=== PATIENT | female | born 1935 | race Caucasian/White ===

== ENCOUNTER 2020-06-24 06:58 | Emergency (ER) | payer MEDICARE, OTHER ==
[2020-06-24 07:24] VITALS: BP 130/74; PULSE 88
[2020-06-24] MEDS ORDERED: HYDROmorphone 0.5 MG/0.5 ML Syringe IVPUSH ONE ×2 (07:30→08:50)
[2020-06-24] MEDS ORDERED: Sodium Chloride 0.9% 1,000 ML IV SCH (07:30)
[2020-06-24] MEDS ORDERED: Metoclopramide 10 MG/2 ML SDV IVPUSH ONE (07:31)
--- NOTE | 2020-06-24 07:39 | EDM.PDOC ---
ED HPI GENERAL MEDICAL PROBLEM - General Chief Complaint: Back Pain or Injury Stated Complaint: BACK PAIN Time Seen by Provider: 06/24/20 07:25 Source of Information: Reports: Patient, Family (spouse) History Limitations: Reports: No Limitations - History of Present Illness INITIAL COMMENTS - FREE TEXT/NARRATIVE: 85-year-old female presents to the ED in accompaniment of her . Chief complaint is diffuse low back pain. This occurred suddenly as she was bending over yesterday to put the ironing board away and when she stood up she developed excruciating pain in her lower back which is persisted. Pain is not too bad at rest levels and there is a 3. With standing or walking incident 8 or 9 out of 10. She does have a history of compression fractures in her thoracic spine from coughing so hard when she had pneumonia. Denies any pain with radiating down her buttocks or legs. She feels she is emptying her bladder adequately. She took Tylenol for pain last night with very little relief. Onset: Sudden Onset Date: 06/23/20 Duration: Hour(s):, Constant, Getting Worse Location: Reports: Back (Mid lumbar spine) Quality: Reports: Ache, Throbbing Severity: Moderate (7-8 out of 10 at standing) Improves with: Reports: Rest (3 out of 10 at rest.) Worsens with: Reports: Other (Trying to walk or stand.), Movement Associated Symptoms: Reports: Malaise. 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: Acetaminophen Lower Back Pain Score (Numeric/FACES): 4 - Related Data Allergies Allergy/AdvReac Type Severity Reaction Status Date / Time oxycodone AdvReac Shaking Verified 06/24/20 07:24 Home Meds: Home Meds Cholecalciferol (Vitamin D3) [Vitamin D3] 1,000 unit PO DAILY 09/06/14 [History] Multivit-Min/FA/Lycopen/Lutein [Centrum Silver Tablet] 1 each PO DAILY 09/06/14 [History] Aspirin [Halfprin] 81 mg PO DAILY tab.ec 09/12/14 [Rx] Levothyroxine [Synthroid] 88 mcg PO ACBRK tablet 09/12/14 [Rx] Rosuvastatin [Crestor] 2.5 mg PO BEDTIME tablet 09/12/14 [Rx] amLODIPine [Norvasc] 10 mg PO BID 11/03/15 [History] B2/Vits A,C,E/Lut/Zeaxanth/Min [Icaps] 1 each PO BID 06/24/20 [History] Diclofenac Sodium [Voltaren] 50 mg PO TID #24 tab.ec 06/24/20 [Rx] Escitalopram Oxalate [Lexapro] 10 mg PO DAILY 06/24/20 [History] HYDROmorphone [Dilaudid] 4 mg PO Q4H #30 tablet 06/24/20 [Rx] Past Medical History HEENT History: Reports: Cataract Other HEENT History: Wears glasses Cardiovascular History: Reports: High Cholesterol, Hypertension Respiratory History: Reports: PE, Pneumonia, Recurrent Other Respiratory History: pleural effusion, pneumothorax Gastrointestinal History: Reports: Chronic Constipation Genitourinary History: Reports: UTI, Recurrent Other Genitourinary History: urinary frequency 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: Musculoskeletal History: Reports: Arthritis, Osteoarthritis, Other (See Below) Other Musculoskeletal History: osteopenia Psychiatric History: Reports: Depression Endocrine/Metabolic History: Reports: Hypothyroidism Hematologic History: Reports: Anemia Other Oncologic History: 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 thigh Dermatologic History: Reports: Melanoma - Infectious Disease History Infectious Disease History: Reports: Chicken Pox, Measles, Mumps - Past Surgical History Female Surgical History: Reports: Hysterectomy Musculoskeletal Surgical History: Reports: Knee Replacement Other Musculoskeletal Surgeries/Procedures:: bilateral knee replacements 2006 and 08/2014, balloon kyphoplasty Social & Family History - Family History Family Medical History: No Pertinent Family History Musculoskeletal: Reports: RA Oncologic: Reports: Other (See Below) Other Oncologic Family History: kidney - Tobacco Use Tobacco Use Status *Q: Never Tobacco User - Recreational Drug Use Recreational Drug Use: No - Living Situation & Occupation Living situation: Reports: Occupation: Retired ED ROS GENERAL - Review of Systems Review Of Systems: See Below Constitutional: Reports: Malaise, Fatigue (Did not sleep very well.), Decreased Appetite. Denies: Fever, Chills HEENT: Reports: Glasses Respiratory: Reports: No Symptoms Cardiovascular: Reports: Blood Pressure Problem Endocrine: Reports: Fatigue GI/Abdominal: Reports: Constipation : Reports: Frequency, Incontinence Musculoskeletal: Reports: Neck Pain, Shoulder Pain, Back Pain (Occasional urge incontinence), Joint Pain Skin: Reports: No Symptoms (Knees and hips at times.) Neurological: Reports: No Symptoms Psychiatric: Reports: Anxiety, Depression Hematologic/Lymphatic: Reports: No Symptoms Immunologic: Reports: No Symptoms ED EXAM,LOWER BACK PAIN/INJURY - Physical Exam Exam: See Below Exam Limited By: No Limitations General Appearance: Alert, WD/WN, Mild Distress, Other (Temperature is 36.4. Heart rate 88 and sinus respiratory 16 BP 03/15/1973 with O2 sats of 97% room air.) Eye Exam: Bilateral Eye: Normal Inspection, PERRL (No blepharal pallor or scleral icterus.) Respiratory/Chest: No Respiratory Distress, Lungs Clear, Normal Breath Sounds, No Accessory Muscle Use Cardiovascular: Normal Peripheral Pulses, Regular Rate, Rhythm, No Edema, No Murmur, No Rub GI/Abdominal: Normal Bowel Sounds, Soft, Non-Tender, No Organomegaly, No Mass, Pelvis Stable, Distended (Mildly distended and firm lower abdomen. Dull to p ercussion.). No: Guarding, Rigid, Rebound Back Exam: Normal Inspection, Decreased Range of Motion, Vertebral Tenderness. No: Full Range of Motion, CVA Tenderness (L), CVA Tenderness (R), Muscle Spasm (Tenderness in the midline more over L3 and L2 vertebra.), Paraspinal Tenderness Extremities: Normal Inspection, Normal Range of Motion, Non-Tender, No Pedal Edema Neurological: Alert, Normal Mood/Affect, Normal Dorsiflexion, CN II-XII Intact Psychiatric: Normal Affect, Normal Mood, Other Skin Exam: Warm, Dry (In a good deal of discomfort at this time), Intact, Normal Color Course - Vital Signs Last Recorded V/S: Last Vital Signs Temp 36.4 C 06/24/20 07:22 Pulse 88 06/24/20 07:22 Resp 16 06/24/20 07:22 BP 130/74 06/24/20 07:22 Pulse Ox 97 06/24/20 07:22 - Orders/Labs/Meds Orders: Active Orders 24 hr Category Date Time Status URINALYSIS W/MICROSCOPIC [UA W/MICROSCOPIC] [URIN] Stat Lab 06/24/20 07:27 Results Sodium Chloride 0.9% [Normal Saline] 1,000 ml Med 06/24/20 07:30 Active IV ASDIRECTED Durable Medical Equipment for Discharge [DME for Oth 06/24/20 08:59 Ordered Discharge] [COMM] Stat Medication Orders Sodium Chloride (Normal Saline) 1,000 mls @ 125 mls/hr IV ASDIRECTED [facility] Last Admin: 06/24/20 07:50 Dose: 125 mls/hr Documented by: SOFI Labs: Laboratory Tests 06/24/20 06/24/20 06/24/20 Range/Units 07:27 07:45 07:45 WBC 7.83 (3.98-10.04) K/mm3 RBC 4.94 (3.98-5.22) M/mm3 Hgb 14.2 (11.2-15.7) gm/dl Hct 43.9 (34.1-44.9) % MCV 88.9 (79.4-94.8) fl MCH 28.7 (25.6-32.2) pg MCHC 32.3 (32.2-35.5) g/dl RDW Std Deviation 44.3 (36.4-46.3) fL Plt Count 267 (182-369) K/mm3 MPV 9.4 (9.4-12.3) fl Neut % (Auto) 77.3 H (34.0-71.1) % Lymph % (Auto) 11.4 L (19.3-51.7) % Nicholas % (Auto) 10.1 (4.7-12.5) % Eos % (Auto) 0.5 L (0.7-5.8) Baso % (Auto) 0.3 (0.1-1.2) % Neut # (Auto) 6.06 (1.56-6.13) K/mm3 Lymph # (Auto) 0.89 L (1.18-3.74) K/mm3 Nicholas # (Auto) 0.79 H (0.24-0.36) K/mm3 Eos # (Auto) 0.04 (0.04-0.36) K/mm3 Baso # (Auto) 0.02 (0.01-0.08) K/mm3 ESR (0-20) mm/hr Sodium 142 (136-145) mEq/L Potassium 3.5 (3.5-5.1) mEq/L Chloride 105 (98-107) mEq/L Carbon Dioxide 26 (21-32) mEq/L Anion Gap 14.5 (5-15) BUN 15 (7-18) mg/dL Creatinine 0.8 (0.55-1.02) mg/dL Est Cr Clr Drug Dosing 46.01 mL/min Estimated GFR (MDRD) > 60 (>60) mL/min BUN/Creatinine Ratio 18.8 H (14-18) Glucose 143 H (70-99) mg/dL Calcium 9.0 (8.5-10.1) mg/dL Total Bilirubin 1.0 (0.2-1.0) mg/dL AST 24 (15-37) U/L ALT 27 (14-59) U/L Alkaline Phosphatase 103 (46-116) U/L C-Reactive Protein 1.6 H* (<1.0) mg/dL Total Protein 7.4 (6.4-8.2) g/dl Albumin 3.6 (3.4-5.0) g/dl Globulin 3.8 gm/dL Albumin/Globulin Ratio 1.0 (1-2) Urine Color Yellow (Yellow) Urine Appearance Slt cloudy H (Clear) Urine pH 7.0 (5.0-8.0) Ur Specific [place] 1.020 (1.005-1.030) Urine Protein Negative (Negative) Urine Glucose (UA) Negative (Negative) Urine Ketones Negative (Negative) Urine Occult Blood Trace-intact H (Negative) Urine Nitrite Negative (Negative) Urine Bilirubin Negative (Negative) Urine Urobilinogen 0.2 (0.2-1.0) Ur Leukocyte Esterase Negative (Negative) 06/24/20 Range/Units 07:45 WBC (3.98-10.04) K/mm3 RBC (3.98-5.22) M/mm3 Hgb (11.2-15.7) gm/dl Hct (34.1-44.9) % MCV (79.4-94.8) fl MCH (25.6-32.2) pg MCHC (32.2-35.5) g/dl RDW Std Deviation (36.4-46.3) fL Plt Count (182-369) K/mm3 MPV (9.4-12.3) fl Neut % (Auto) (34.0-71.1) % Lymph % (Auto) (19.3-51.7) % Nicholas % (Auto) (4.7-12.5) % Eos % (Auto) (0.7-5.8) Baso % (Auto) (0.1-1.2) % Neut # (Auto) (1.56-6.13) K/mm3 Lymph # (Auto) (1.18-3.74) K/mm3 Nicholas # (Auto) (0.24-0.36) K/mm3 Eos # (Auto) (0.04-0.36) K/mm3 Baso # (Auto) (0.01-0.08) K/mm3 ESR 10 (0-20) mm/hr Sodium (136-145) mEq/L Potassium (3.5-5.1) mEq/L Chloride (98-107) mEq/L Carbon Dioxide (21-32) mEq/L Anion Gap (5-15) BUN (7-18) mg/dL Creatinine (0.55-1.02) mg/dL Est Cr Clr Drug Dosing mL/min Estimated GFR (MDRD) (>60) mL/min BUN/Creatinine Ratio (14-18) Glucose (70-99) mg/dL Calcium (8.5-10.1) mg/dL Total Bilirubin (0.2-1.0) mg/dL AST (15-37) U/L ALT (14-59) U/L Alkaline Phosphatase (46-116) U/L C-Reactive Protein (<1.0) mg/dL Total Protein (6.4-8.2) g/dl Albumin (3.4-5.0) g/dl Globulin gm/dL Albumin/Globulin Ratio (1-2) Urine Color (Yellow) Urine Appearance (Clear) Urine pH (5.0-8.0) Ur Specific [place] (1.005-1.030) Urine Protein (Negative) Urine Glucose (UA) (Negative) Urine Ketones (Negative) Urine Occult Blood (Negative) Urine Nitrite (Negative) Urine Bilirubin (Negative) Urine Urobilinogen (0.2-1.0) Ur Leukocyte Esterase (Negative) Meds: Medications Generic Name Dose Route Start Last Admin Trade Name Freq PRN Reason Stop Dose Admin Sodium Chloride 1,000 mls @ 125 mls/hr 06/24/20 07:30 05/11/21 07:50 Normal Saline IV 125 mls/hr ASDIRECTED MARTIN Administration Discontinued Medications Generic Name Dose Route Start Last Admin Trade Name Michelle PRN Reason Stop Dose Admin Hydromorphone HCl 0.5 mg 06/24/20 07:30 06/24/20 07:51 Hydromorphone 0.5 Mg/0.5 Ml Syringe IVPUSH 06/24/20 07:31 0.5 mg ONETIME ONE Administration Hydromorphone HCl 0.5 mg 06/24/20 08:50 Hydromorphone 0.5 Mg/0.5 Ml Syringe IVPUSH 06/24/20 08:51 ONETIME ONE Ibuprofen 600 mg 06/24/20 09:06 06/24/20 09:27 Ibuprofen 600 Mg Tab PO 06/24/20 09:07 600 mg ONETIME ONE Administration Metoclopramide HCl 5 mg 06/24/20 07:31 06/24/20 07:50 Metoclopramide 10 Mg/2 Ml Sdv IVPUSH 06/24/20 07:32 5 mg ONETIME ONE Administration - Radiology Interpretation Free Text/Narrative:: 85-year-old female attends the ED for reevaluation of severe mid lower lumbar back pain. This occurred suddenly while she was putting the ironing board away yesterday and bending down lower than normal. As she stood up she felt a terrible pain occurring to her lower back which is persisted. She has a history of compression fractures in her thoracic spine from coughing. Known to have osteoporosis. Minimal paraspinal muscle spasm on examination. Pain localized to the L2-L3 area. CT scan of this area will be done without contrast. IV will be normal saline at 100 mils an hour given Dilaudid 0.5 mg IV with Reglan 5 mg IV for pain relief. - Re-Assessments/Exams Free Text/Narrative Re-Assessment/Exam: 06/24/20 08:39 CT of the lumbar spine has been completed. Findings at the T11- T12 area there is mild compression deformity noted within the superior endplate of T12 which shows small lucent lines compatible with a fairly acute compression fracture. Posterior disc is preserved. No central canal stenosis or neuroforaminal stenosis is seen. No extension of any fracture line into the posterior elements are seen. At the T12-L1 level posterior disc is preserved. No central canal stenosis or neural foraminal stenosis is seen. At the L1-2 level posterior disc is preserved. No central canal or neuroforaminal stenosis is seen. At the L2-L3 level slight circumferential disc bulge is noted. Posterior disc maintains a concave margin. No central canal stenosis is seen. Neural foramina are felt to be patent where the nerve roots exit. At the L3-L4 level minimal circumferential disc bulge is noted. Fairly severe degenerative apophyseal changes noted. No central canal stenosis is noted. Neuroforamina are patent where the nerve roots exit. At the L4 L5-L5 level mild circumferential disc bulge is seen. Moderate degenerative apophyseal changes noted. Mild central canal stenosis is also noted. Neuroforamina are patent where the nerve roots exit. At the L5-S1 level there is severe disc space narrowing. No central canal stenosis is noted. Mild bilateral neuroforaminal stenosis is seen. Fairly severe degenerative apophyseal changes are appreciated. No additional fracture or abnormal subluxation is seen. 06/24/20 08:42 White count is 7.83. The differential shows 77% neutrophils. Hemoglobin is 14.2 with hematocrit of 43.9. Platelet count 267,000. Sodium is 142 with a potassium of 3.5. Chloride 105 with a bicarb of 26. Anion gap is 14.5. BUN is 15 with a creatinine of 0.8 GFR is greater than 60. BUN/creatinine ratio is great 18.8. Glucose 143. Calcium 9.0. Liver function normal C-reactive protein minimally elevated 1.6. Total protein is 7.4 with an albumin fraction of 3.6. Urine still slightly cloudy with a trace of occult blood leukocyte esterase is negative. I discussed the findings with the patient her is not in the room at this time. Ideally she is a candidate for kyphoplasty. She still having a good deal of pain I will repeat Dilaudid 0.5 mg IV. She will require a roller walker to aid ambulation at home due to acute T12 compression fracture Departure - Departure Time of Disposition: 09:30 Disposition: Home, Self-Care 01 Condition: Fair Clinical Impression: Acute low back pain Qualifiers: Back pain laterality: midline Sciatica presence: without sciatica Qualified Code(s): M54.5 - Low back pain Compression fracture of T12 vertebra Qualifiers: Encounter type: initial encounter Qualified Code(s): S22.080A - Wedge compression fracture of T11-T12 vertebra, initial encounter for closed fracture - Discharge Information *PRESCRIPTION DRUG MONITORING PROGRAM REVIEWED*: Not Applicable *COPY OF PRESCRIPTION DRUG MONITORING REPORT IN PATIENT MADHAVI: Not Applicable Prescriptions: HYDROmorphone [Dilaudid] 4 mg PO Q4H #30 tablet Diclofenac Sodium [Voltaren] 50 mg PO TID #24 tab.ec Referrals: Tita Turner, OBJECTIVE C DEVELOPER [Primary Care Provider] - Forms: ED Department Discharge Additional Instructions: Evaluation in the emergency room today in regards to severe low back pain that started after simply bending over yesterday and felt a crack in your back. Examination revealed pain coming from the lower thoracic and upper lumbar spine area. CT scan of the area reveals a compression fracture of T12 vertebra. There are 12 bones in the thoracic spine and you have crushed the superior endplate of the lowest one called thoracic 12. These bones will heal up on their own but take 6 to 12 weeks to heal completely. There is his potential surgery that can be carried out called a kyphoplasty which can relieve your pain much sooner. This is usually done 7 to 10 days after injury. Lab test done today were all within normal limits. You were treated in the ED with 2 doses of Dilaudid 0.5 mg IV for pain relief. We will send you home with Dilaudid tablets 4 mg strength to be used 1 tablet every 4-6 hours necessary for pain relief. Suggest follow-up with Prachi Blackburn on Tuesday this week to see how you are getting along. She could in turn make a referral to neurosurgery in [place] either Dr. Zaragoza at [place] or Dr. Herrera at [facility] in [place]. Both of them do kyphoplasty procedures. Kyphoplasty can give you immediate pain relief and return your mobility much sooner than waiting it out to heal. Sepsis Event Note (ED) - Evaluation Sepsis Screening Result: No Definite Risk - Focused Exam Vital Signs: Vital Signs Temp Pulse Resp BP Pulse Ox 06/24/20 07:22 36.4 C 88 16 130/74 97 - My Orders Last 24 Hours: My Active Orders 06/24/20 07:27 URINALYSIS W/MICROSCOPIC [UA W/MICROSCOPIC] [URIN] Stat 06/24/20 07:30 Sodium Chloride 0.9% [Normal Saline] 1,000 ml IV ASDIRECTED 06/24/20 08:59 Durable Medical Equipment for Discharge [DME for Discharge] [COMM] Stat - Assessment/Plan Last 24 Hours: My Active Orders 06/24/20 07:27 URINALYSIS W/MICROSCOPIC [UA W/MICROSCOPIC] [URIN] Stat 06/24/20 07:30 Sodium Chloride 0.9% [Normal Saline] 1,000 ml IV ASDIRECTED 06/24/20 08:59 Durable Medical Equipment for Discharge [DME for Discharge] [COMM] Stat
--- NOTE | 2020-06-24 08:34 | CT ---
CT lumbar spine Technique: Multiple axial sections were obtained from the lower T11 level inferiorly through the L5-S1 disc. Reconstructed coronal and sagittal images were obtained. Comparison: No prior lumbar spine imaging is available. Findings: T11-T12: Mild compression deformity is noted within the superior endplate of T12 which shows small lucent lines compatible with a fairly acute compression fracture. Posterior disc is preserved. No central canal stenosis or neural foraminal stenosis is seen. No extension of any fracture line into the posterior elements are seen. T12-L1: Posterior disc is preserved. No central canal stenosis or neural foraminal stenosis is seen. L1-2: Posterior disc is preserved. No central canal stenosis or neural foraminal stenosis is seen. L2-L3: Slight circumferential disc bulge is noted. Posterior disc maintains a concave margin. No central canal stenosis is seen. Neural foramina are felt to be patent where the nerve roots exit. L3-L4: Minimal circumferential disc bulge is noted. Fairly severe degenerative apophyseal change is seen. No central canal stenosis is noted. Neural foramina are patent where the nerve roots exit. L4-L5: Mild circumferential disc bulge is seen. Moderate degenerative apophyseal change is noted. Mild central canal stenosis is seen. Neural foramina are patent where the nerve roots exit. L5-S1: Severe disc space narrowing is seen. No central canal stenosis is noted. Mild bilateral neural foraminal stenosis is seen. Fairly severe degenerative apophyseal change is seen. No additional fracture or abnormal subluxation is seen. Impression: 1. Mild compression deformity within the superior endplate of T12 which appears to be fairly acute. 2. Mild degenerative change as noted above. Diagnostic code #3
[2020-06-24] MEDS ORDERED: Ibuprofen 600 MG Tab PO ONE (09:06)
== END 2020-06-24 09:54 | disposition home or self-care (01) ==
LOC: JD.ED 06:58
DX: M54.5 Low back pain (principal); M48.54XA Collapsed vertebra, not elsewhere classified, thoracic region, initial encounter for fracture; E78.00 Pure hypercholesterolemia, unspecified; I10 Essential (primary) hypertension; M19.90 Unspecified osteoarthritis, unspecified site; E03.9 Hypothyroidism, unspecified; Z79.899 Other long term (current) drug therapy; Z79.82 Long term (current) use of aspirin
CPT/HCPCS: 36415; 72131; 80053; 81001; 85025; 85652; 86140; 96374; 96375; 99284; A9270; J1170; J2765; J7030

== ENCOUNTER 2020-07-01 08:10 | Emergency (ER) | payer MEDICARE, OTHER ==
[2020-07-01 08:29] VITALS: BP 144/80; PULSE 99
--- NOTE | 2020-07-01 08:41 | EDM.PDOC ---
ED HPI GENERAL MEDICAL PROBLEM - General Chief Complaint: Back Pain or Injury Stated Complaint: BACK ISSUE NOT BETTER /MEDS ISSUE Time Seen by Provider: 07/01/20 08:27 Source of Information: Reports: Patient, Family (spouse) History Limitations: Reports: No Limitations - History of Present Illness INITIAL COMMENTS - FREE TEXT/NARRATIVE: 85-year-old female presents to the ED once again with back pain that is not being well controlled with Dilaudid 4 mg tablets due to making her dizzy and nauseated. She is allergic to Percocet makes her shaky. She has a appointment to see Dr. Galan neurosurgeon at [facility] next week on 09 July. Her MRI is scheduled for the this week. Plan we will switch her from Dilaudid tablets to Mcarthur 5/325 mg strength since she states she only gets weak and tremulous on Percocet not severe reaction. She will use 1 tablet every 6 hours as needed for pain relief. I also wrote a prescription for Zofran 4 mg sublingual every 4 to 6 hours necessary for nausea relief since pain medicine is making her nauseous and she not eating well. Certainly advise MiraLAX powder is 17 g daily to prevent constipation from occurring. Onset: Sudden Onset Date: 06/29/20 Duration: Day(s):, Constant Location: Reports: Back (Known compression fracture diagnosed by CT scan last week made .) Quality: Reports: Ache, Throbbing Severity: Moderate Improves with: Reports: Rest Worsens with: Reports: Movement (8 out of 10 movements particularly standing walking or) Context: Reports: Other (Spontaneous compression fracture superior endplate of T12). Denies: Activity ( getting in and out of bed), Exercise, Lifting, Sick Contact, Trauma Associated Symptoms: Reports: Confusion ( simply by bending over last week due to underlying osteoporosis.), Loss of Appetite, Nausea/Vomiting, Weakness (Intermittent nausea.). 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 (see below) (Dilaudid 4 mg tablets every 6 hours as needed and Voltaren 50 mg 3 times daily.) Back Pain Score (Numeric/FACES): 3 - Related Data Allergies Allergy/AdvReac Type Severity Reaction Status Date / Time oxycodone AdvReac Shaking Verified 07/01/20 08:29 Home Meds: Home Meds Cholecalciferol (Vitamin D3) [Vitamin D3] 1,000 unit PO DAILY 09/06/14 [History] Multivit-Min/FA/Lycopen/Lutein [Centrum Silver Tablet] 1 each PO DAILY 09/06/14 [History] Aspirin [Halfprin] 81 mg PO DAILY tab.ec 09/12/14 [Rx] Levothyroxine [Synthroid] 88 mcg PO ACBRK tablet 09/12/14 [Rx] Rosuvastatin [Crestor] 2.5 mg PO BEDTIME tablet 09/12/14 [Rx] amLODIPine [Norvasc] 10 mg PO BID 11/03/15 [History] B2/Vits A,C,E/Lut/Zeaxanth/Min [Icaps] 1 each PO BID 06/24/20 [History] Diclofenac Sodium [Voltaren] 50 mg PO TID #24 tab.ec 06/24/20 [Rx] Escitalopram Oxalate [Lexapro] 10 mg PO DAILY 06/24/20 [History] HYDROmorphone [Dilaudid] 4 mg PO Q4H #30 tablet 06/24/20 [Rx] Acetaminophen/HYDROcodone [Mcarthur 325-5 MG] 1 tab PO Q4H PRN #24 tablet 07/01/20 [Rx] Ondansetron [Zofran] 4 mg BUCCAL Q6H PRN #12 tab 07/01/20 [Rx] Past Medical History HEENT History: Reports: Cataract Other HEENT History: Wears glasses Cardiovascular History: Reports: High Cholesterol, Hypertension Respiratory History: Reports: PE, Pneumonia, Recurrent Other Respiratory History: pleural effusion, pneumothorax Gastrointestinal History: Reports: Chronic Constipation Genitourinary History: Reports: UTI, Recurrent Other Genitourinary History: urinary frequency 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: Reports: Musculoskeletal History: Reports: Arthritis, Osteoarthritis, Other (See Below) Other Musculoskeletal History: osteopenia Psychiatric History: Reports: Depression Endocrine/Metabolic History: Reports: Hypothyroidism Hematologic History: Reports: Anemia Other Oncologic History: 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 thigh Dermatologic History: Reports: Melanoma - Infectious Disease History Infectious Disease History: Reports: Chicken Pox, Measles, Mumps - Past Surgical History Female Surgical History: Reports: Hysterectomy Musculoskeletal Surgical History: Reports: Knee Replacement Other Musculoskeletal Surgeries/Procedures:: bilateral knee replacements 2006 and 08/2014, balloon kyphoplasty Social & Family History - Family History Family Medical History: No Pertinent Family History Musculoskeletal: Reports: RA Oncologic: Reports: Other (See Below) Other Oncologic Family History: kidney - Living Situation & Occupation Living situation: Reports: Occupation: Retired ED ROS GENERAL - Review of Systems Review Of Systems: See Below Constitutional: Reports: Malaise, Weakness, Fatigue, Decreased Appetite, Weight Loss. Denies: Fever, Chills HEENT: Reports: Glasses Respiratory: Reports: No Symptoms Cardiovascular: Reports: Blood Pressure Problem Endocrine: Reports: Fatigue GI/Abdominal: Denies: Constipation : Reports: Frequency Musculoskeletal: Reports: Neck Pain, Shoulder Pain (June 22.), Back Pain (Nocturia usually x2 or 3. Recent compression fracture thoracic 12 vertebra we believe on June the), Joint Pain Skin: Reports: No Symptoms (On occasion knees and hips at times.) Neurological: Reports: Confusion, Dizziness Psychiatric: Reports: No Symptoms Hematologic/Lymphatic: Reports: No Symptoms Immunologic: Reports: No Symptoms ED EXAM,LOWER BACK PAIN/INJURY - Physical Exam Exam: See Below Exam Limited By: No Limitations General Appearance: Alert, WD/WN, Moderate Distress, Other (Temperature is 36.3 degrees heart rate is 99 and sinus respiratory 16 with O2 sats of 93 4% room air. BP 144/80) Eye Exam: Bilateral Eye: Normal Inspection (No scleral icterus or blepharal pallor.), PERRL Throat/Mouth: Normal Inspection, Normal Lips, Normal Teeth, Normal Oropharynx, Other (Tongue is dry and shriveled.) Head: Atraumatic, Normocephalic Neck: Normal Inspection, Supple, Non-Tender, Full Range of Motion, Tender Lateral (She states no worse than normal.). No: Lymphadenopathy (L), Lymph adenopathy (R) Respiratory/Chest: No Respiratory Distress, Lungs Clear, Normal Breath Sounds, No Accessory Muscle Use Cardiovascular: Normal Peripheral Pulses, Regular Rate, Rhythm, No Edema, No Gallop, No Murmur, No Rub GI/Abdominal: Normal Bowel Sounds, Non-Tender, No Organomegaly, Distended (Mildly distended and tympany to percussion.). No: Guarding, Rigid, Rebound, Tender Back Exam: Normal Inspection, Decreased Range of Motion, Paraspinal Tenderness, Vertebral Tenderness. No: Full Range of Motion, CVA Tenderness (L), CVA Tenderness (R) Extremities: Normal Inspection (At the thoracolumbar junction.), Normal Range of Motion, Non-Tender, No Pedal Edema Neurological: Alert, Normal Mood/Affect, Normal Dorsiflexion, CN II-XII Intact, No Motor/Sensory Deficits, Oriented x 3. No: Normal Gait Psychiatric: Flat Affect Skin Exam: Warm, Dry, Intact, Normal Color, No Rash Course - Vital Signs Last Recorded V/S: Last Vital Signs Temp 36.3 C 07/01/20 08:24 Pulse 99 07/01/20 08:24 Resp 16 07/01/20 08:24 BP 144/80 H 07/01/20 08:24 Pulse Ox 91 L 07/01/20 08:24 - Radiology Interpretation Free Text/Narrative:: 85-year-old female presents to the ED for reevaluation of compression fracture of T12 vertebra. I had seen her last week and diagnosed her with a superior endplate compression fracture of T12 vertebra that occurred simply after bending over at home the 2 days prior. She is just about out of her pain medication which we use Dilaudid 4 mg tablets but she is finding it difficult to take due to nausea and queasiness and lightheadedness. Plan will be to switch her to Mcarthur 5 325 mg strength 1 tablet every 4-6 hours necessary for pain relief. She reports an allergy to oxycodone which is not a true allergy she developed tremulousness from it no itching or shortness of breath. No rashes. Also wrote a prescription for Zofran 4 mg sublingual to be used every 6 hours necessary for nausea relief. 12 tablets provided. She will finish up the Voltaren 50 mg 3 times daily today. Then she can use Motrin on a as needed basis as well as Tylenol for fracture relief. She is scheduled for MRI on this week July 03. present and aware of plan of treatment. Departure - Departure Time of Disposition: 08:43 Disposition: Home, Self-Care 01 Condition: Fair Clinical Impression: Compression fracture of thoracic spine, non-traumatic Qualifiers: Encounter type: sequela Thoracic vertebra fracture level: T12 Qualified Code(s): M48.54XS - Collapsed vertebra, not elsewhere classified, thoracic region, sequela of fracture - Discharge Information *PRESCRIPTION DRUG MONITORING PROGRAM REVIEWED*: Not Applicable *COPY OF PRESCRIPTION DRUG MONITORING REPORT IN PATIENT MADHAVI: Not Applicable Prescriptions: Acetaminophen/HYDROcodone [Mcarthur 325-5 MG] 1 tab PO Q4H PRN #24 tablet PRN Reason: Compression fracture T12 Ondansetron [Zofran] 4 mg BUCCAL Q6H PRN #12 tab PRN Reason: nausea or vomiting Instructions: Thoracic Spine Fracture, Pain Medicine Instructions, [id number] Referrals: Tita Turner REPAIRER GENERAL [Primary Care Provider] - Forms: ED Department Discharge Additional Instructions: Evaluation in the emergency room this morning in regards to pain management primarily for a recently diagnosed compression fracture of the superior endplate of thoracic 12 vertebra in your back. Plan will be to change her pain medicine around to Mcarthur 5/325 mg strength. 1 tablet every 4-6 hours necessary for pain relief and may use Motrin 600 mg every 6 hours as needed for pain relief. May also take extra doses of Tylenol 500 mg every 6 hours if needed for pain relief as well. I have also written a prescription for Zofran 4 mg strength to be used under the tongue 1 tablet every 6 hours as needed for nausea relief from the pain medication. Continue MiraLAX powder 17 g once daily to keep the stools regular. Take the Ativan as previously written at approximately 7:00 on the morning of MRI testing. May use pain medicine about an hour before that so that pain is controlled as well as relief of anxiety will receiving the MRI of your lumbar spine. Continue to use the roller walker to aid gait. Sepsis Event Note (ED) - Focused Exam Vital Signs: Vital Signs Temp Pulse Resp BP Pulse Ox 07/01/20 08:24 36.3 C 99 16 144/80 H 91 L
== END 2020-07-01 09:00 | disposition home or self-care (01) ==
LOC: JD.ED 08:10
DX: M48.54XA Collapsed vertebra, not elsewhere classified, thoracic region, initial encounter for fracture (principal); E78.00 Pure hypercholesterolemia, unspecified; I10 Essential (primary) hypertension; M19.90 Unspecified osteoarthritis, unspecified site; Z79.82 Long term (current) use of aspirin; Z79.899 Other long term (current) drug therapy; Z88.5 Allergy status to narcotic agent
CPT/HCPCS: 99283

== ENCOUNTER 2020-07-31 13:38 | Emergency (ER) | payer MEDICARE, OTHER ==
[2020-07-31 13:56] VITALS: BP 146/77; PULSE 110
[2020-07-31] MEDS ORDERED: HYDROmorphone 0.5 MG/0.5 ML Syringe IVPUSH ONE ×2 (14:17→15:44)
[2020-07-31] MEDS ORDERED: Ondansetron 4 MG/2 ML SDV IVPUSH ONE (14:18)
--- NOTE | 2020-07-31 14:20 | EDM.PDOC ---
ED HPI GENERAL MEDICAL PROBLEM - General Chief Complaint: Back Pain or Injury Stated Complaint: BACK PAIN Time Seen by Provider: 07/31/20 14:10 Source of Information: Reports: Patient, Family History Limitations: Reports: No Limitations - History of Present Illness INITIAL COMMENTS - FREE TEXT/NARRATIVE: 85-year-old female presents to the ED for evaluation of increased mid back pain. Patient suffered a compression fracture of the superior endplate of T12 on June 24, 2020. This was diagnosed by CT scan through the ED. She was subsequently set up to see neurosurgeon at [facility] in [place] and did see Dr. Mcmanus neurosurgeon. She did have a kyphoplasty towards the end of June by Dr. Mcmanus on T12 vertebra. However she continued to have significant pain in the MRI done preoperatively suggested that there was a compression fracture of the inferior endplate of thoracic 11 vertebra. Therefore on July 28 she underwent kyphoplasty by Dr. Wright another surgeon that is filling in for Dr. Mcmanus while he is away. This was on thoracic 11 vertebra. She was discharged home the same day. Pain was pretty well-tolerated until last night when the pain seemed to get much worse. She is taking White [place] tablets 5/325 mg tablets and has been taking them off and on ever since the onset of the compression fracture back in early June. She therefore has a tolerance to the medication and she only takes 1 tablet every 4 hours. She cannot take oxycodone and she did try oral Dilaudid tablets with side effects of making her quite dizzy and not controlling her pain. She essentially is here for pain control and they only have a few White Salmon tablets left. Onset: Gradual Onset Date: 07/30/20 (Patient has been having chronic back pain since initial compression fracture of thoracic 12 vertebra in early June of this year. She currently has had kyphoplasty to T12 initially followed by T11 4 days ago) Duration: Week(s):, Getting Worse Location: Reports: Back (Lower thoracic back pain from compression fractures of inferior endplate of T11 and superior endplate of T12 vertebra bones are extremely osteoporotic) Quality: Reports: Ache, Throbbing Severity: Moderate (Rates the pain currently is 7-8 out of 10.) Improves with: Reports: Rest Worsens with: Reports: Movement (Little bit better at rest but still present. Worse with movement) Context: Denies: Activity, Exercise, Lifting, Sick Contact, Trauma, Other Associated Symptoms: Denies: No Other Symptoms, Confusion, Chest Pain, Cough, c ough w sputum, Diaphoresis, Fever/Chills, Headaches, Loss of Appetite, Malaise, Nausea/Vomiting, Rash, Seizure, Shortness of Breath, Syncope, Weakness Treatments COPY EDITOR: Reports: Acetaminophen, Other (see below) (Hydrocodone 5/325 mg tablets usually 1 every 4 hours.) back Pain Score (Numeric/FACES): 8 - Related Data Allergies Allergy/AdvReac Type Severity Reaction Status Date / Time oxycodone AdvReac Shaking Verified 07/31/20 13:56 Home Meds: Home Meds Cholecalciferol (Vitamin D3) [Vitamin D3] 1,000 unit PO DAILY 09/06/14 [History] Multivit-Min/FA/Lycopen/Lutein [Centrum Silver Tablet] 1 each PO DAILY 09/06/14 [History] Aspirin [Halfprin] 81 mg PO DAILY tab.ec 09/12/14 [Rx] Levothyroxine [Synthroid] 88 mcg PO ACBRK tablet 09/12/14 [Rx] Rosuvastatin [Crestor] 2.5 mg PO BEDTIME tablet 09/12/14 [Rx] amLODIPine [Norvasc] 10 mg PO BID 11/03/15 [History] B2/Vits A,C,E/Lut/Zeaxanth/Min [Icaps] 1 each PO BID 06/24/20 [History] Diclofenac Sodium [Voltaren] 50 mg PO TID #24 tab.ec 06/24/20 [Rx] Escitalopram Oxalate [Lexapro] 10 mg PO DAILY 06/24/20 [History] HYDROmorphone [Dilaudid] 4 mg PO Q4H #30 tablet 06/24/20 [Rx] Acetaminophen/HYDROcodone [[place] 325-5 MG] 1 tab PO Q4H PRN #24 tablet 07/01/20 [Rx] Ondansetron [Zofran] 4 mg BUCCAL Q6H PRN #12 tab 07/01/20 [Rx] Hydrocodone/Acetaminophen [Hydrocodone-Acetamin 5-325 mg] 1 - 2 each PO Q4H PRN #40 tablet 07/31/20 [Rx] Past Medical History HEENT History: Reports: Cataract Other HEENT History: Wears glasses Cardiovascular History: Reports: High Cholesterol, Hypertension Respiratory History: Reports: PE, Pneumonia, Recurrent Other Respiratory History: pleural effusion, pneumothorax Gastrointestinal History: Reports: Chronic Constipation Genitourinary History: Reports: UTI, Recurrent Other Genitourinary History: urinary frequency 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 History: Reports: Musculoskeletal History: Reports: Arthritis, Fracture, Osteoarthritis, Other (See Below) Other Musculoskeletal History: osteopenia Psychiatric History: Reports: Depression Endocrine/Metabolic History: Reports: Hypothyroidism Hematologic History: Reports: Anemia Other Oncologic History: 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 thigh Dermatologic History: Reports: Melanoma - Infectious Disease History Infectious Disease History: Reports: Chicken Pox, Measles, Mumps Other Infectious Disease History: COVID Vaccines 2020 - Past Surgical History Female Surgical History: Reports: Hysterectomy Musculoskeletal Surgical History: Reports: Knee Replacement Other Musculoskeletal Surgeries/Procedures:: bilateral knee replacements 2006 and 08/2014, balloon kyphoplasty Social & Family History - Family History Family Medical History: No Pertinent Family History Musculoskeletal: Reports: RA Oncologic: Reports: Other (See Below) Other Oncologic Family History: kidney - Tobacco Use Tobacco Use Status *Q: Never Tobacco User - Recreational Drug Use Recreational Drug Use: No - Living Situation & Occupation Living situation: Reports: Occupation: Retired ED ROS GENERAL - Review of Systems Review Of Systems: See Below Constitutional: Reports: Malaise, Weakness, Fatigue, Decreased Appetite (Did not sleep at all last night.), Weight Loss. Denies: Fever, Chills HEENT: Reports: Glasses ( Has not had much to eat today. She believes she is slowly losing weight.) Respiratory: Reports: Shortness of Breath. Denies: Wheezing, Pleuritic Chest Pain, Cough, Sputum, Hemoptysis Cardiovascular: Reports: Blood Pressure Problem, Lightheadedness. Denies: Chest Pain, Claudication, Dyspnea on Exertion, Edema (Occasionally.), Orthopnea, Palpitations Endocrine: Reports: Fatigue GI/Abdominal: Reports: Constipation (Secondary to using narcotics. She is using MiraLAX) : Reports: Frequency ( powder 17 g daily.), Incontinence, Urgency Musculoskeletal: Reports: Neck Pain, Shoulder Pain, Back Pain (Occasional urge and stress incontinence. Pression fractures of T11 and T12 vertebra over the last 6 weeks), Joint Pain (Knees and hips at times.) Skin: Reports: Bruising (Is is easily and does take aspirin daily.) Neurological: Reports: No Symptoms, Dizziness, Difficulty Walking (Does use a wa lker to aid her gait.). Denies: Confusion, Headache, Numbness (Occasional dizziness.), Pre-Existing Deficit, Seizure, Syncope, Tingling, Trouble Speaking, Weakness Psychiatric: Reports: No Symptoms Hematologic/Lymphatic: Reports: No Symptoms Immunologic: Reports: No Symptoms ED EXAM,LOWER BACK PAIN/INJURY - Physical Exam Exam: See Below Exam Limited By: No Limitations General Appearance: Alert, WD/WN, Mild Distress, Other (She appears to be quite uncomfortable. Temperature is 36.7. Heart rate 110 and sinus. Respiratory is 18 with sats of 93 to 94% room air. BP 146/77) Eye Exam: Bilateral Eye: Normal Inspection (Mild blepharal pallor. No scleral icterus.), PERRL Throat/Mouth: Other (Tongue is mildly dry.) Neck: Limited Range of Motion, Tender Lateral (Hepatus on lateral rotation. Tender bilateral aspect of the cervical spine.). 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 It had a blood spot on it but there is no active bleeding from the wound and there is no evidence of an infection.) Extremities: Normal Inspection, No Pedal Edema, Other (She has evidence of arthritic changes in both hands both feet ankles knees and hips.). No: Pedal Edema Neurological: Alert, Normal Mood/Affect, Normal Dorsiflexion, CN II-XII Intact, Normal Plantar Flexion, Oriented x 3 Psychiatric: Normal Affect, Other (She is in a good deal of discomfort.) Skin Exam: Warm, Dry, Intact, Pallor (Mildly pallid.) Course - Vital Signs Last Recorded V/S: Last Vital Signs Temp 36.7 C 07/31/20 13:51 Pulse 110 H 07/31/20 13:51 Resp 18 07/31/20 13:51 BP 146/77 H 07/31/20 13:51 Pulse Ox 93 L 07/31/20 13:51 - Orders/Labs/Meds Orders: Active Orders 24 hr Category Date Time Status Dextrose 5%-0.9% NaCl [Dextrose 5%-Normal Saline] 1,000 Med 07/31/20 14:30 Active ml IV ASDIRECTED Medication Orders Dextrose/Sodium Chloride (Dextrose 5%-Normal Saline) 1,000 mls @ 500 mls/hr IV ASDIRECTED MARTIN Last Admin: 07/31/20 14:25 Dose: 500 mls/hr Documented by: RAZ Meds: Medications Generic Name Dose Route Start Last Admin Trade Name Freq PRN Reason Stop Dose Admin Dextrose/Sodium Chloride 1,000 mls @ 500 mls/hr 07/31/20 14:30 07/31/20 14:25 Dextrose 5%-Normal Saline IV 500 mls/hr ASDIRECTED MARTIN Administration Discontinued Medications Generic Name Dose Route Start Last Admin Trade Name Freq PRN Reason Stop Dose Admin Hydromorphone HCl 0.5 mg 07/31/20 14:17 07/31/20 14:28 Hydromorphone 0.5 Mg/0.5 Ml Syringe IVPUSH 07/31/20 14:18 0.5 mg ONETIME ONE Administration Hydromorphone HCl 0.5 mg 07/31/20 15:44 07/31/20 16:00 Hydromorphone 0.5 Mg/0.5 Ml Syringe IVPUSH 07/31/20 15:45 0.5 mg ONETIME ONE Administration Ondansetron HCl 4 mg 07/31/20 14:18 07/31/20 14:26 Ondansetron 4 Mg/2 Ml Sdv IVPUSH 07/31/20 14:19 4 mg ONETIME ONE Administration - Radiology Interpretation Free Text/Narrative:: 85-year-old female brought to the ED by her . Patient has had problems with osteoporosis with the development of initial compression fracture of the superior endplate of thoracic 12 vertebra around June. She was seen in the ED on June [address] diagnosed the compression fracture of thoracic 12. Subsequently she was set up to have a follow-up MRI and then follow-up with Dr. Mcmanus neurosurgeon at [facility] in [place] who performs kyphoplasty. Apparently he did perform a kyphoplasty towards the end of June of this year. However her pain remained fairly substantial [facility] MRI had suggested there was a inferior endplate compression fracture of thoracic 11 vertebra. Therefore she underwent kyphoplasty of thoracic 11 vertebra on July 28 by neurosurgeon at [facility]. Dr. Mcmanus is on vacation. She was discharged the same day and was doing okay up until last night when the pain seemed to intensify a good deal. She has been using [place] 5/325 mg tablets usually 1 every 4 hours. She been using these for the most part off and on since initial diagnosis in early June and therefore will have a tolerance to this. She cannot tolerate oxycodone and oral hydromorphone did not help her pain at all just made her very dizzy. Plan she will receive 500 mils of D5 normal saline in the ED with Dilaudid 0.5 mg IV and Zofran 4 mg IV at this time. They only have a few tablets left of the White [place]mon and therefore they will need a new prescription in this regard. She will be advised to increase the dose to 1-1/2 tablets every 4 hours and if necessary 2 tablets every 4 hours until the pain alleviates. - Re-Assessments/Exams Free Text/Narrative Re-Assessment/Exam: 07/31/20 15:45 She had to get up from the bed with the aid of the nursing staff and myself to get to a bedside commode to void. She is still experiencing a great deal of pain particularly when we had to place her back into bed. Therefore I am going to repeat Dilaudid 0.5 mg IV. Departure - Departure Time of Disposition: 16:27 Disposition: Home, Self-Care 01 Condition: Fair Clinical Impression: History of vertebral compression fracture, Encounter for pain management - Discharge Information *PRESCRIPTION DRUG MONITORING PROGRAM REVIEWED*: Not Applicable *COPY OF PRESCRIPTION DRUG MONITORING REPORT IN PATIENT MADHAVI: Not Applicable Prescriptions: Hydrocodone/Acetaminophen [Hydrocodone-Acetamin 5-325 mg] 1 - 2 each PO Q4H PRN #40 tablet PRN Reason: Severe back pain Referrals: Tita Turner, RN URGENT CARE [Primary Care Provider] - Forms: ED Department Discharge Additional Instructions: Evaluation in the emergency room today in regards to pain in the mid lower thoracic spine due to known compression fractures of T11 and T12 vertebra both of which have undergone kyphoplasty in the last month. The T11 vertebra was recently treated with operative intervention called kyphoplasty on July 28. Recent increase in pain since last night for no apparent reason. You were treated with some IV fluids in the emergency department since you have eaten or drank very little in the last 24 hours. You are given 2 doses of 0.5 mg strength Dilaudid for pain relief with antinausea medicine Zofran 4 mg IV. I did refill prescription for hydrocodone 5/325 mg tablets. May use 1-1 and 1/2 to 2 tablets as we discussed every 4-6 hours as necessary for pain relief. Our goal is for the pain to slowly settle down after surgical intervention over the next week. Failing that this you will require further imaging of your lower back. Continue MiraLAX powder 17 g once daily to prevent constipation from occurring from the pain medications. Return to medical care if pain is not controlled or condition seems to worsen. Sepsis Event Note (ED) - Evaluation Sepsis Screening Result: No Definite Risk - Focused Exam Vital Signs: Vital Signs Temp Pulse Resp BP Pulse Ox 07/31/20 13:51 36.7 C 110 H 18 146/77 H 93 L - My Orders Last 24 Hours: My Active Orders 07/31/20 14:30 Dextrose 5%-0.9% NaCl [Dextrose 5%-Normal Saline] 1,000 ml IV ASDIRECTED - Assessment/Plan Last 24 Hours: My Active Orders 07/31/20 14:30 Dextrose 5%-0.9% NaCl [Dextrose 5%-Normal Saline] 1,000 ml IV ASDIRECTED
[2020-07-31] MEDS ORDERED: Dextrose 5%-0.9% NaCl 1,000 ML IV SCH (14:30)
== END 2020-07-31 16:45 | disposition home or self-care (01) ==
LOC: JD.ED 13:38
DX: Z01.89 Encounter for other specified special examinations (principal); E78.00 Pure hypercholesterolemia, unspecified; I10 Essential (primary) hypertension; E03.9 Hypothyroidism, unspecified; Z88.5 Allergy status to narcotic agent; Z79.82 Long term (current) use of aspirin; Z87.81 Personal history of (healed) traumatic fracture
CPT/HCPCS: 96374; 96375; 96376; 99283; J1170; J2405; J7042

== ENCOUNTER 2020-08-13 08:10 | Observation (INO) | payer MEDICARE, OTHER ==
[2020-08-13] MEDS ORDERED: Sodium Chloride 0.9% 10 ML Syringe FLUSH PRN ×2 (08:47→10:04)
[2020-08-13] MEDS ORDERED: Ketorolac 30 MG/ML SDV IVPUSH ONE (08:47)
--- NOTE | 2020-08-13 08:55 | EDM.PDOC ---
ED HPI GENERAL MEDICAL PROBLEM - General Chief Complaint: Back Pain or Injury Stated Complaint: BODY PAIN Time Seen by Provider: 08/13/20 08:13 Source of Information: Reports: Patient History Limitations: Reports: No Limitations - History of Present Illness INITIAL COMMENTS - FREE TEXT/NARRATIVE: 85 yo F who was fairly healthy until around a month ago she leaned over while folding an ironing board and sustained thoracic compression fractures. She had kyphoplasty at three levels in the thoracic spine in [place]. She was seen here 6 days ago with poor pain control/severe back pain at which time a new L1 compression deformity was diagnosed. Yesterday she had kyphoplasty at that level in [place]. She has struggled with pain control this entire month. She says her best relief was when she was taking hydrocodone + ibuprofen + APAP. She recently switched to fentanyl patches totaling 25 mg/hr + hydrocodone/APAP 5mg q 6 hrs and is having worsening pain. Pain is diffuse throughout her back, worse in the low back area, dull, severe, constant, worse with movement. She is able to get out of bed/up to the bathroom but with great difficulty. Her and home health services are helping her at home. Denies fever. No cough/SOB/CP/abd pain/n/v/d/urinary symptoms. She is taking miralax and having BM's. No additional complaint. Back Pain Score (Numeric/FACES): 8 - Related Data Allergies Allergy/AdvReac Type Severity Reaction Status Date / Time oxycodone AdvReac Shaking Verified 08/13/20 08:20 Home Meds: Home Meds Cholecalciferol (Vitamin D3) [Vitamin D3] 1,000 unit PO DAILY 09/06/14 [History] Multivit-Min/FA/Lycopen/Lutein [Centrum Silver Tablet] 1 each PO DAILY 09/06/14 [History] Aspirin [Halfprin] 81 mg PO DAILY tab.ec 09/12/14 [Rx] Levothyroxine [Synthroid] 88 mcg PO ACBRK tablet 09/12/14 [Rx] Rosuvastatin [Crestor] 2.5 mg PO BEDTIME tablet 09/12/14 [Rx] amLODIPine [Norvasc] 10 mg PO BID 11/03/15 [History] B2/Vits A,C,E/Lut/Zeaxanth/Min [Icaps] 1 each PO BID 06/24/20 [History] Diclofenac Sodium [Voltaren] 50 mg PO TID #24 tab.ec 06/24/20 [Rx] Escitalopram Oxalate [Lexapro] 10 mg PO DAILY 06/24/20 [History] Acetaminophen/HYDROcodone [[place] 325-5 MG] 1 tab PO Q4H PRN #24 tablet 07/01/20 [Rx] Ondansetron [Zofran] 4 mg BUCCAL Q6H PRN #12 tab 07/01/20 [Rx] Hydrocodone/Acetaminophen [Hydrocodone-Acetamin 5-325 mg] 1 - 2 each PO Q4H PRN #40 tablet 07/31/20 [Rx] Past Medical History HEENT History: Reports: Cataract Other HEENT History: Wears glasses Cardiovascular History: Reports: High Cholesterol, Hypertension Respiratory History: Reports: PE, Pneumonia, Recurrent Other Respiratory History: pleural effusion, pneumothorax Gastrointestinal History: Reports: Chronic Constipation Genitourinary History: Reports: UTI, Recurrent Other Genitourinary History: urinary frequency 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: Musculoskeletal History: Reports: Arthritis, Fracture, Osteoarthritis, Other (See Below) Other Musculoskeletal History: osteopenia Psychiatric History: Reports: Depression Endocrine/Metabolic History: Reports: Hypothyroidism Hematologic History: Reports: Anemia Other Oncologic History: 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 thigh Dermatologic History: Reports: Melanoma - Infectious Disease History Infectious Disease History: Reports: Chicken Pox, Measles, Mumps Other Infectious Disease History: COVID Vaccines 2020 - Past Surgical History Female Surgical History: Reports: Hysterectomy Musculoskeletal Surgical History: Reports: Knee Replacement Other Musculoskeletal Surgeries/Procedures:: bilateral knee replacements 2006 and 08/2014, balloon kyphoplasty Social & Family History - Family History Family Medical History: No Pertinent Family History Musculoskeletal: Reports: RA Oncologic: Reports: Other (See Below) Other Oncologic Family History: kidney - Tobacco Use Tobacco Use Status *Q: Never Tobacco User - Living Situation & Occupation Living situation: Reports: Occupation: Retired ED ROS GENERAL - Review of Systems Review Of Systems: See Below Constitutional: Denies: Fever HEENT: Reports: No Symptoms Respiratory: Denies: Shortness of Breath Cardiovascular: Denies: Chest Pain Endocrine: Reports: No Symptoms GI/Abdominal: Denies: Abdominal Pain : Denies: Dysuria Musculoskeletal: Reports: Back Pain Skin: Reports: No Symptoms Neurological: Reports: No Symptoms Psychiatric: Reports: No Symptoms Hematologic/Lymphatic: Reports: No Symptoms Immunologic: Reports: No Symptoms ED EXAM, GENERAL - Physical Exam Exam: See Below Exam Limited By: No Limitations General Appearance: Alert, No Apparent Distress, Other (uncomfortable appearing ) Eye Exam: Bilateral Eye: Normal Inspection Ears: Normal External Exam Nose: Normal Inspection Throat/Mouth: Normal Inspection, Normal Oropharynx, Normal Voice Head: Atraumatic, Normocephalic Neck: Normal Inspection, Supple, Non-Tender Respiratory/Chest: No Respiratory Distress, Lungs Clear Cardiovascular: Normal Peripheral Pulses, Regular Rate, Rhythm GI/Abdominal: Soft, Non-Tender, No Distention Back Exam: Normal Inspection, Other (severe kyphosis, she is mildly tender throughout but doesn't have any specific point tenderness - states the pain is "deeper", no ) Extremities: Normal Inspection Neurological: Alert, Oriented, Normal Cognition, No Motor/Sensory Deficits Psychiatric: Normal Affect Skin Exam: Warm, Dry, Intact, Normal Color, No Rash Course - Vital Signs Last Recorded V/S: Last Vital Signs Temp 36.7 C 08/13/20 08:17 Pulse 110 H 08/13/20 08:17 Resp 18 08/13/20 08:17 BP 118/55 L 08/13/20 08:17 Pulse Ox 95 08/13/20 08:17 - Orders/Labs/Meds Orders: Active Orders 24 hr Category Date Time Status EKG 12 Lead [EKG Documentation Completion] [RC] STAT Care 08/13/20 11:11 Active Peripheral IV Care [RC] . DIRECTED Care 08/13/20 08:47 Active Peripheral IV Care [RC] . DIRECTED Care 08/13/20 08:48 Active Lumbar Spine Comp w wo Cont [MR] Routine Exams 08/13/20 13:20 Ordered UA W/GERSON RFLX IF INDICATED [URIN] Stat Lab 08/13/20 10:22 Ordered Sodium Chloride 0.9% [Saline Flush] Med 08/13/20 08:47 Active 10 ml FLUSH ASDIRECTED PRN Sodium Chloride 0.9% [Saline Flush] Med 08/13/20 10:04 Active 10 ml FLUSH ONETIME PRN Peripheral IV Insertion Adult [OM.PC] Routine Oth 08/13/20 08:47 Ordered Medication Orders Sodium Chloride (Sodium Chloride 0.9% 10 Ml Syringe) 10 ml FLUSH ASDIRECTED PRN PRN Reason: Keep Vein Open Last Admin: 08/13/20 09:11 Dose: 10 ml Documented by: [place] Sodium Chloride (Sodium Chloride 0.9% 10 Ml Syringe) 10 ml FLUSH ONETIME PRN PRN Reason: IV FLUSH Last Admin: 08/13/20 11:23 Dose: 10 ml Documented by: EKTA Labs: Laboratory Tests 08/13/20 08/13/20 08/13/20 Range/Units 09:13 09:13 09:13 WBC 6.47 (3.98-10.04) K/mm3 RBC 4.58 (3.98-5.22) M/mm3 Hgb 13.4 D (11.2-15.7) gm/dl Hct 40.8 (34.1-44.9) % MCV 89.1 (79.4-94.8) fl MCH 29.3 (25.6-32.2) pg MCHC 32.8 (32.2-35.5) g/dl RDW Std Deviation 49.1 H (36.4-46.3) fL Plt Count 371 H (182-369) K/mm3 MPV 8.5 L (9.4-12.3) fl Neut % (Auto) 78.4 H (34.0-71.1) % Lymph % (Auto) 10.5 L (19.3-51.7) % [place] % (Auto) 9.7 (4.7-12.5) % Eos % (Auto) 1.1 (0.7-5.8) Baso % (Auto) 0.3 (0.1-1.2) % Neut # (Auto) 5.07 (1.56-6.13) K/mm3 Lymph # (Auto) 0.68 L (1.18-3.74) K/mm3 [place] # (Auto) 0.63 H (0.24-0.36) K/mm3 Eos # (Auto) 0.07 (0.04-0.36) K/mm3 Baso # (Auto) 0.02 (0.01-0.08) K/mm3 ESR 20 (0-20) mm/hr Sodium 144 (136-145) mEq/L Potassium 2.6 L D (3.5-5.1) mEq/L Chloride 104 (98-107) mEq/L Carbon Dioxide 26 (21-32) mEq/L Anion Gap 16.6 H (5-15) BUN 13 (7-18) mg/dL Creatinine 0.7 (0.55-1.02) mg/dL Est Cr Clr Drug Dosing 48.16 mL/min Estimated GFR (MDRD) > 60 (>60) mL/min BUN/Creatinine Ratio 18.6 H (14-18) Glucose 154 H (70-99) mg/dL Calcium 8.5 (8.5-10.1) mg/dL Phosphorus (2.6-4.7) mg/dL Magnesium (1.8-2.4) mg/dL Total Bilirubin 0.8 (0.2-1.0) mg/dL AST 20 (15-37) U/L ALT 43 (14-59) U/L Alkaline Phosphatase 183 H (46-116) U/L C-Reactive Protein 3.0 H* (<1.0) mg/dL Total Protein 6.7 (6.4-8.2) g/dl Albumin 3.0 L (3.4-5.0) g/dl Globulin 3.7 gm/dL Albumin/Globulin Ratio 0.8 L (1-2) SARS-CoV-2 RNA (AMY) (NEGATIVE) 08/13/20 08/13/20 Range/Units 09:13 12:55 WBC (3.98-10.04) K/mm3 RBC (3.98-5.22) M/mm3 Hgb (11.2-15.7) gm/dl Hct (34.1-44.9) % MCV (79.4-94.8) fl MCH (25.6-32.2) pg MCHC (32.2-35.5) g/dl RDW Std Deviation (36.4-46.3) fL Plt Count (182-369) K/mm3 MPV (9.4-12.3) fl Neut % (Auto) (34.0-71.1) % Lymph % (Auto) (19.3-51.7) % [place] % (Auto) (4.7-12.5) % Eos % (Auto) (0.7-5.8) Baso % (Auto) (0.1-1.2) % Neut # (Auto) (1.56-6.13) K/mm3 Lymph # (Auto) (1.18-3.74) K/mm3 [place] # (Auto) (0.24-0.36) K/mm3 Eos # (Auto) (0.04-0.36) K/mm3 Baso # (Auto) (0.01-0.08) K/mm3 ESR (0-20) mm/hr Sodium (136-145) mEq/L Potassium (3.5-5.1) mEq/L Chloride (98-107) mEq/L Carbon Dioxide (21-32) mEq/L Anion Gap (5-15) BUN (7-18) mg/dL Creatinine (0.55-1.02) mg/dL Est Cr Clr Drug Dosing mL/min Estimated GFR (MDRD) (>60) mL/min BUN/Creatinine Ratio (14-18) Glucose (70-99) mg/dL Calcium (8.5-10.1) mg/dL Phosphorus 3.6 (2.6-4.7) mg/dL Magnesium 1.8 (1.8-2.4) mg/dL Total Bilirubin (0.2-1.0) mg/dL AST (15-37) U/L ALT (14-59) U/L Alkaline Phosphatase (46-116) U/L C-Reactive Protein (<1.0) mg/dL Total Protein (6.4-8.2) g/dl Albumin (3.4-5.0) g/dl Globulin gm/dL Albumin/Globulin Ratio (1-2) SARS-CoV-2 RNA (AMY) Negative (NEGATIVE) Meds: Medications Generic Name Dose Route Start Last Admin Trade Name Freq PRN Reason Stop Dose Admin Sodium Chloride 10 ml 08/13/20 08:47 08/13/20 09:11 Sodium Chloride 0.9% 10 Ml Syringe FLUSH 10 ml ASDIRECTED PRN Administration Keep Vein Open Sodium Chloride 10 ml 08/13/20 10:04 08/13/20 11:23 Sodium Chloride 0.9% 10 Ml Syringe FLUSH 10 ml ONETIME PRN Administration IV FLUSH Discontinued Medications Generic Name Dose Route Start Last Admin Trade Name Freq PRN Reason Stop Dose Admin Hydrocodone Bitart/Acetaminophen 1 tab 08/13/20 11:32 08/13/20 11:50 Acetaminophen/Hydrocodone 325-5 Mg Tab PO 08/13/20 11:33 1 tab ONETIME ONE Administration Diatrizoate Meglum/Diatrizoate Sod 120 ml 08/13/20 10:04 08/13/20 11:23 Diatrizoate Meglumine/Diatrizoate Sodium 37% 120 Ml Bottle PO 08/13/20 10:05 30 ml ONETIME ONE Administration Potassium Chloride 10 meq/ 100 mls @ 100 mls/hr 08/13/20 10:10 08/13/20 10:54 Premix IV 08/13/20 11:09 100 mls/hr ONETIME ONE Administration Potassium Chloride 10 meq/ 100 mls @ 100 mls/hr 08/13/20 12:46 08/13/20 13:45 Premix IV 08/13/20 13:45 100 mls/hr ONETIME ONE Administration Iopamidol 100 ml 08/13/20 10:04 08/13/20 11:23 Iopamidol 612 Mg/Ml 100 Ml Bottle IVPUSH 08/13/20 10:05 100 ml ONETIME ONE Administration Ketorolac Tromethamine 15 mg 08/13/20 08:47 08/13/20 09:12 Ketorolac 30 Mg/Ml Sdv IVPUSH 08/13/20 08:48 15 mg ONETIME ONE Administration Potassium Chloride 40 meq 08/13/20 10:10 08/13/20 10:54 Potassium Chloride 20 Meq Tab.Er PO 08/13/20 10:11 40 meq ONETIME ONE Administration - Re-Assessments/Exams Free Text/Narrative Re-Assessment/Exam: 08/13/20 10:21 Feels much better after toradol. Labs significant for K+ of 2.6 - suspect poor dietary intake. CRP mildly elevated at 3.0. Anticipate admission for pain control, potassium repletion, and PT/OT assessment. 08/13/20 13:21 CT chest/a/p doesn't show any acute abnormality other than known compression fractures/evidence of kyphoplasty. Discussed with Dr. Luz who will eval patient for admission. Departure - Departure Time of Disposition: 13:21 Disposition: Refer to Observation Clinical Impression: Hypokalemia Back pain Qualifiers: Back pain location: thoracic back pain Chronicity: acute Back pain laterality: unspecified Qualified Code(s): M54.6 - Pain in thoracic spine Lumbar compression fracture Qualifiers: Encounter type: subsequent encounter Lumbar vertebra fracture level: L1 Fracture healing: with routine healing Qualified Code(s): S32.010D - Wedge compression fracture of first lumbar vertebra, subsequent encounter for fracture with routine healing Thoracic compression fracture Qualifiers: Encounter type: subsequent encounter Thoracic vertebra fracture level: T12 Fracture healing: with routine healing Qualified Code(s): S22.080D - Wedge compression fracture of T11-T12 vertebra, subsequent encounter for fracture with routine healing - Discharge Information Referrals: Tita Turner, [employer] [Primary Care Provider] - Forms: ED Department Discharge Sepsis Event Note (ED) - Evaluation Sepsis Screening Result: No Definite Risk - Focused Exam Vital Signs: Vital Signs Temp Pulse Resp BP Pulse Ox 08/13/20 08:17 36.7 C 110 H 18 118/55 L 95 - My Orders Last 24 Hours: My Active Orders 08/13/20 08:47 Peripheral IV Care [RC] . DIRECTED Sodium Chloride 0.9% [Saline Flush] 10 ml FLUSH ASDIRECTED PRN Peripheral IV Insertion Adult [OM.PC] Routine 08/13/20 08:48 Peripheral IV Care [RC] . DIRECTED 08/13/20 10:04 Sodium Chloride 0.9% [Saline Flush] 10 ml FLUSH ONETIME PRN 08/13/20 10:22 UA W/GERSON RFLX IF INDICATED [URIN] Stat 08/13/20 11:11 EKG 12 Lead [EKG Documentation Completion] [RC] STAT - Assessment/Plan Last 24 Hours: My Active Orders 08/13/20 08:47 Peripheral IV Care [RC] . DIRECTED Sodium Chloride 0.9% [Saline Flush] 10 ml FLUSH ASDIRECTED PRN Peripheral IV Insertion Adult [OM.PC] Routine 08/13/20 08:48 Peripheral IV Care [RC] . DIRECTED 08/13/20 10:04 Sodium Chloride 0.9% [Saline Flush] 10 ml FLUSH ONETIME PRN 08/13/20 10:22 UA W/GERSON RFLX IF INDICATED [URIN] Stat 08/13/20 11:11 EKG 12 Lead [EKG Documentation Completion] [RC] STAT
[2020-08-13] MEDS ORDERED: Iopamidol 612 MG/ML 100 ML Bottle IVPUSH ONE (10:04)
[2020-08-13] MEDS ORDERED: Diatrizoate Meglumine/Diatrizoate Sodium 37% 120 ML Bottle PO ONE (10:04)
[2020-08-13] MEDS ORDERED: Potassium Chloride 20 MEQ Tab.ER PO ONE (10:10)
[2020-08-13] MEDS ORDERED: Potassium Chloride 10 MEQ in Premix Bag 1 BAG IV ONE ×2 (10:10→12:46)
[2020-08-13] MEDS ORDERED: Acetaminophen/HYDROcodone 325-5 MG Tab PO ONE (11:32)
--- NOTE | 2020-08-13 12:10 | CT ---
CT chest Technique: Multiple axial sections through the chest were obtained. Intravenous contrast was utilized. Comparison: Prior CT chest study of 07/12/15 as well as prior CT thoracic spine study of 08/07/20. Findings: Thoracic aorta shows atherosclerotic calcification with no aneurysm. Small mediastinal lymph nodes are seen which are felt to be within normal limits. No pericardial thickening is seen. Small hiatal hernia is noted. There are densities within both lung bases being seen which are worse on the right side. These are most likely due to areas of scarring. No definite acute parenchymal change is seen within either lung. Bone window setting shows compression deformities within T12 and T11 as well as T7 which shows prior vertebroplastys. T11 shows displacement of the posterior vertebral line into the central canal causing central canal stenosis. This finding is seen on prior study although the central canal appears more narrowed than suggested on previous exam. Thoracic spine shows no other acute compression deformities. Scattered disc space narrowing within the thoracic and cervical spine are noted. Impression: 1. Scarring within both lung bases. 2. Compression deformities within the thoracic spine with prior vertebroplasty. 3. 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 Central canal stenosis appears more prominent than seen on prior CT thoracic spine study. 4. No other acute abnormality is appreciated. Diagnostic code #3 CT abdomen and pelvis Technique: Multiple axial sections were obtained from above the dome of the diaphragm inferiorly through the pubic symphysis. Delayed images were also obtained through the bladder. Reconstructed coronal and sagittal images were obtained. Intravenous and oral contrast was utilized. Comparison: No prior CT abdomen or pelvis study is available. Previous lumbar spine CT exam of 08/07/20 is available. Findings: Small hiatal hernia is noted. Small low density finding is noted next to the ligamentum teres fissure which is felt to be within normal limits. Nothing acute seen within the liver. Spleen size is normal. Adrenal gland on the right side is minimally nodular. This is likely incidental. Left adrenal gland is within normal limits. Pancreas shows no focal abnormality. Abdominal aorta shows atherosclerotic calcification without aneurysm. Gallbladder contains no definite calcified gallstones. Kidneys show symmetric contrast enhancement. There is a minimal abnormality within the upper left kidney which is not a simple cyst and difficult to exclude a very early area of neoplasm. Second area is noted within the mid left kidney which is also not a simple cyst. The right kidney shows a simple cyst measuring 2.6 cm. No retroperitoneal adenopathy or mesenteric abnormalities are seen. Focal increased stool within the rectum is noted. Minimal diverticulosis is seen within the sigmoid region. Appendix is not visualized with certainty. No free fluid or inflammatory change is appreciated. Delayed images show contrast within the distal ureters and within the bladder. Bone window settings were reviewed which show a compression deformity within L1 which shows vertebroplasty. This is an interval change from prior lumbar spine. Slight retrolisthesis of the posterior vertebral line is seen which is stable. Disc space narrowing is seen at L5-S1 which is stable. Impression: 1. Prior vertebroplasty within L1. This is an interval change from prior study and appears within normal limits. 2. Fair amount of stool within the rectum. 3. Slightly abnormal left kidney and difficult to exclude very early neoplasm. Suggest repeat contrast CT exam of the abdomen in 6 months to further evaluate for stability. 4. Other findings believed to be incidental as noted above. Diagnostic code #3
--- NOTE | 2020-08-13 13:14 | PCM.HP.2 ---
<Abhay Middleton - Last Filed: 08/13/20 15:31> H&P History of Present Illness - General Date of Service: 08/13/20 Admit Problem/Dx: Hypokalemia Source of Information: Patient, Old Records, Provider, RN, RN Notes Reviewed History Limitations: Reports: No Limitations - History of Present Illness Initial Comments - Free Text/Narative: This is a 85-year-old female who presents to ED on 08/13/2020 with rather severe back pain. She reports about a month ago she leaned over an ironing board and sustained thoracic compression fractures. She underwent kyphoplasty at 3 levels in [place] with minmal relief. Then 6 days ago she presented to ED with severe back pain which showed a new L1 compression deformity. She underwent another kyphoplasty procedure yesterday, 08/12/2020 in [place]. She says she has had pain control issues since her initial injury. She states her pain is best controlled when taking hydrocodone, ibuprofen, and APAP. She states she was recently started on a 25 mg/h fentanyl patch and Percocet every 6 hours with minimal improvement. She states pain is throughout her entire back but worse in her low back area. She reports it is dull, severe, and constant but worse with movement. She is able to get out of bed and ambulate to the bathroom but it is quite difficult. She does have home health services and her helping her. Denies any infectious symptoms such as fever, cough, shortness of breath, chest pain, abdominal pain, nausea, vomiting, diarrhea, urinary symptoms. She is on MiraLAX and having BMs. In the ED temp is 36.7 Celsius. Pulse 110. Respirations 18. Blood pressure 118/55. Pulse ox 95%. Lead EKG is obtained showing a sinus rhythm at 94 bpm. There is LVH pattern with Q waves noted in III, aVF, and V1. Poor R wave t ransition. Labs are obtained with a WBC of 6.47. Hemoglobin is 13.6. Platelets are 271,000. Neutrophils are elevated at 70.4%. Sed rate is 20. Sodium is 144. Potassium is quite low at 2.6. Chloride 104. Carbon dioxide 26. Anion gap is 16.6. BUN is 13. Creatinine 0.7. GFR is greater than 60. Glucose is 154. Calcium 8.5. Bilirubin 0.8. AST is 20, ALT 43, alkaline phosphatase 183. CRP is 3.0. Protein is 6.7. Albumin is 3.0. Phosphorus is 3.6. Magnesium is 1.8. CT scan of the chest is obtained showing scarring within both lung bases and compression deformities within the thoracic spine with prior vertebroplasty. There is also displacement of the posterior vertebral line into the central canal causing central canal stenosis. Central canal stenosis appears more prominent than seen on prior CT thoracic spine study. No other acute abnormalities appreciated. CT of the abdomen and pelvis is obtained showing a prior vertebroplasty with an L1 which is an interval change from prior study and appears within normal limits. There is a fair amount of stool within the rectum. There is a slightly abnormal left kidney and difficult to exclude very early neoplasm. Suggest repeat contrast CT exam of the abdomen in 6 months to further evaluate for stability. Other findings which are believed to be incidental are found and noted. She is given potassium chloride supplementation and a [place] for pain. She is also given Toradol which greatly improves her pain. Plan is to admit the patient observation status for potassium supplementation, PT OT assessment, and further pain control. She carries a history of HLD, HTN, PE, recurrent pneumonia, chronic constipation, recurrent UTIs, osteoarthritis, osteopenia, depression, hypothyroidism, anemia, and melanoma. PCP is Tita Turner NP. Back Pain Score (Numeric/FACES): 8 - Related Data Allergies/Adverse Reactions: Allergies Allergy/AdvReac Type Severity Reaction Status Date / Time oxycodone AdvReac Shaking Verified 08/13/20 08:20 Home Medications: Home Meds Cholecalciferol (Vitamin D3) [Vitamin D3] 1,000 unit PO DAILY 09/06/14 [History] Multivit-Min/FA/Lycopen/Lutein [Centrum Silver Tablet] 1 each PO DAILY 09/06/14 [History] Aspirin [Halfprin] 81 mg PO DAILY tab.ec 09/12/14 [Rx] Levothyroxine [Synthroid] 88 mcg PO ACBRK tablet 09/12/14 [Rx] Rosuvastatin [Crestor] 2.5 mg PO BEDTIME tablet 09/12/14 [Rx] amLODIPine [Norvasc] 10 mg PO BID 11/03/15 [History] B2/Vits A,C,E/Lut/Zeaxanth/Min [Icaps] 1 each PO BID 06/24/20 [History] Diclofenac Sodium [Voltaren] 50 mg PO TID #24 tab.ec 06/24/20 [Rx] Escitalopram Oxalate [Lexapro] 10 mg PO DAILY 06/24/20 [History] Acetaminophen/HYDROcodone [[place] 325-5 MG] 1 tab PO Q4H PRN #24 tablet 07/01/20 [Rx] Ondansetron [Zofran] 4 mg BUCCAL Q6H PRN #12 tab 07/01/20 [Rx] Hydrocodone/Acetaminophen [Hydrocodone-Acetamin 5-325 mg] 1 - 2 each PO Q4H PRN #40 tablet 07/31/20 [Rx] Past Medical History HEENT History: Reports: Cataract Other HEENT History: Wears glasses Cardiovascular History: Reports: High Cholesterol, Hypertension Respiratory History: Reports: PE, Pneumonia, Recurrent Other Respiratory History: pleural effusion, pneumothorax Gastrointestinal History: Reports: Chronic Constipation Genitourinary History: Reports: UTI, Recurrent Other Genitourinary History: urinary frequency 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: Musculoskeletal History: Reports: Arthritis, Fracture, Osteoarthritis, Other (See Below) Other Musculoskeletal History: osteopenia Psychiatric History: Reports: Depression Endocrine/Metabolic History: Reports: Hypothyroidism Hematologic History: Reports: Anemia Other Oncologic History: 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 thigh Dermatologic History: Reports: Melanoma - Infectious Disease History Infectious Disease History: Reports: Chicken Pox, Measles, Mumps Other Infectious Disease History: COVID Vaccines 2020 - Past Surgical History Female Surgical History: Reports: Hysterectomy Musculoskeletal Surgical History: Reports: Knee Replacement Other Musculoskeletal Surgeries/Procedures:: bilateral knee replacements 2006 and 08/2014, balloon kyphoplasty Social & Family History - Family History Family Medical History: No Pertinent Family History Musculoskeletal: Reports: RA Oncologic: Reports: Other (See Below) Other Oncologic Family History: kidney - Tobacco Use Tobacco Use Status *Q: Never Tobacco User - Living Situation & Occupation Living situation: Reports: Occupation: Retired H&P Review of Systems - Review of Systems: Review Of Systems: See Below General: Reports: No Symptoms. Denies: Fever, Chills, Malaise, Weakness, Fatigue HEENT: Reports: No Symptoms. Denies: Headaches, Sore Throat Pulmonary: Reports: No Symptoms. Denies: Shortness of Breath, Wheezing, Pleuri tic Chest Pain, Cough, Sputum Cardiovascular: Reports: No Symptoms. Denies: Chest Pain, Palpitations, Dyspnea on Exertion, Edema Gastrointestinal: Reports: Constipation (chronic ). Denies: Abdominal Pain, Diarrhea, Nausea, Stool Incontinence, Vomiting Genitourinary: Reports: No Symptoms. Denies: Pain Musculoskeletal: Reports: Back Pain (chronic and severe ) Skin: Reports: No Symptoms. Denies: Cyanosis Psychiatric: Reports: No Symptoms. Denies: Confusion Neurological: Reports: No Symptoms, Pre-Existing Deficit, Difficulty Walking (2/2 pain ), Gait Disturbance. Denies: Confusion, Dizziness, Headache, Numbness, Syncope, Tingling, Weakness Hematologic/Lymphatic: Reports: No Symptoms Immunologic: Reports: No Symptoms Exam - Exam Exam: See Below - Vital Signs Vital Signs: Last Vital Signs Temp 98.0 F 08/13/20 08:17 Pulse 110 H 08/13/20 08:17 Resp 18 08/13/20 08:17 BP 118/55 L 08/13/20 08:17 Pulse Ox 95 08/13/20 08:17 Weight: 65.771 kg - Exam Quality Assessment: DVT Prophylaxis. No: Supplemental Oxygen, Urinary Catheter General: Alert, Oriented, Cooperative. No: Mild Distress (appears comfortable ) HEENT: Conjunctiva Clear, EACs Clear, Mucosa Moist & Honalo, Posterior Pharynx Clear Neck: Supple, Trachea Midline Lungs: Clear to Auscultation, Normal Respiratory Effort Cardiovascular: Regular Rate, Regular Rhythm GI/Abdominal Exam: Normal Bowel Sounds, Soft, Non-Tender, No Distention (Female) Exam: Deferred Rectal (Female) Exam: Deferred Back Exam: Normal Inspection, Decreased Range of Motion, Other (Reports "deep pain." Kyphosis noted). No: Muscle Spasm, Paraspinal Tenderness, Vertebral Tenderness Extremities: Normal Inspection, Normal Range of Motion, Non-Tender, No Pedal Edema, Normal Capillary Refill Peripheral Pulses: 2+: Radial (L), Radial (R), Dorsalis Pedis (L), Dorsalis Pedis (R) Skin: Warm, Dry, Intact Neurological: Cranial Nerves Intact (Grossly ) Neuro Extensive - Mental Status: Alert, Oriented x3, Normal Mood/Affect - Patient Data Lab Results Last 24 hrs: Laboratory Results - last 24 hr 08/13/20 08/13/20 08/13/20 Range/Units 09:13 09:13 09:13 WBC 6.47 (3.98-10.04) K/mm3 RBC 4.58 (3.98-5.22) M/mm3 Hgb 13.4 D (11.2-15.7) gm/dl Hct 40.8 (34.1-44.9) % MCV 89.1 (79.4-94.8) fl MCH 29.3 (25.6-32.2) pg MCHC 32.8 (32.2-35.5) g/dl RDW Std Deviation 49.1 H (36.4-46.3) fL Plt Count 371 H (182-369) K/mm3 MPV 8.5 L (9.4-12.3) fl Neut % (Auto) 78.4 H (34.0-71.1) % Lymph % (Auto) 10.5 L (19.3-51.7) % Powell % (Auto) 9.7 (4.7-12.5) % Eos % (Auto) 1.1 (0.7-5.8) Baso % (Auto) 0.3 (0.1-1.2) % Neut # (Auto) 5.07 (1.56-6.13) K/mm3 Lymph # (Auto) 0.68 L (1.18-3.74) K/mm3 Powell # (Auto) 0.63 H (0.24-0.36) K/mm3 Eos # (Auto) 0.07 (0.04-0.36) K/mm3 Baso # (Auto) 0.02 (0.01-0.08) K/mm3 ESR 20 (0-20) mm/hr Sodium 144 (136-145) mEq/L Potassium 2.6 L D (3.5-5.1) mEq/L Chloride 104 (98-107) mEq/L Carbon Dioxide 26 (21-32) mEq/L Anion Gap 16.6 H (5-15) BUN 13 (7-18) mg/dL Creatinine 0.7 (0.55-1.02) mg/dL Est Cr Clr Drug Dosing 48.16 mL/min Estimated GFR (MDRD) > 60 (>60) mL/min BUN/Creatinine Ratio 18.6 H (14-18) Glucose 154 H (70-99) mg/dL Calcium 8.5 (8.5-10.1) mg/dL Phosphorus (2.6-4.7) mg/dL Magnesium (1.8-2.4) mg/dL Total Bilirubin 0.8 (0.2-1.0) mg/dL AST 20 (15-37) U/L ALT 43 (14-59) U/L Alkaline Phosphatase 183 H (46-116) U/L C-Reactive Protein 3.0 H* (<1.0) mg/dL Total Protein 6.7 (6.4-8.2) g/dl Albumin 3.0 L (3.4-5.0) g/dl Globulin 3.7 gm/dL Albumin/Globulin Ratio 0.8 L (1-2) 08/13/20 Range/Units 09:13 WBC (3.98-10.04) K/mm3 RBC (3.98-5.22) M/mm3 Hgb (11.2-15.7) gm/dl Hct (34.1-44.9) % MCV (79.4-94.8) fl MCH (25.6-32.2) pg MCHC (32.2-35.5) g/dl RDW Std Deviation (36.4-46.3) fL Plt Count (182-369) K/mm3 MPV (9.4-12.3) fl Neut % (Auto) (34.0-71.1) % Lymph % (Auto) (19.3-51.7) % Powell % (Auto) (4.7-12.5) % Eos % (Auto) (0.7-5.8) Baso % (Auto) (0.1-1.2) % Neut # (Auto) (1.56-6.13) K/mm3 Lymph # (Auto) (1.18-3.74) K/mm3 Powell # (Auto) (0.24-0.36) K/mm3 Eos # (Auto) (0.04-0.36) K/mm3 Baso # (Auto) (0.01-0.08) K/mm3 ESR (0-20) mm/hr Sodium (136-145) mEq/L Potassium (3.5-5.1) mEq/L Chloride (98-107) mEq/L Carbon Dioxide (21-32) mEq/L Anion Gap (5-15) BUN (7-18) mg/dL Creatinine (0.55-1.02) mg/dL Est Cr Clr Drug Dosing mL/min Estimated GFR (MDRD) (>60) mL/min BUN/Creatinine Ratio (14-18) Glucose (70-99) mg/dL Calcium (8.5-10.1) mg/dL Phosphorus 3.6 (2.6-4.7) mg/dL Magnesium 1.8 (1.8-2.4) mg/dL Total Bilirubin (0.2-1.0) mg/dL AST (15-37) U/L ALT (14-59) U/L Alkaline Phosphatase (46-116) U/L C-Reactive Protein (<1.0) mg/dL Total Protein (6.4-8.2) g/dl Albumin (3.4-5.0) g/dl Globulin gm/dL Albumin/Globulin Ratio (1-2) Result Diagrams: 08/13/20 09:13 08/13/20 09:13 Sepsis Event Note - Evaluation Sepsis Screening Result: No Definite Risk - Focused Exam Vital Signs: Vital Signs Temp Pulse Resp BP Pulse Ox 08/13/20 08:17 98.0 F 110 H 18 118/55 L 95 - Problem List (1) HLD (hyperlipidemia) SNOMED Code(s): 08677383 ICD Code: E78.5 - HYPERLIPIDEMIA, UNSPECIFIED Status: Chronic Priority: Low Current Visit: No Qualifiers: Hyperlipidemia type: unspecified Qualified Code(s): E78.5 - Hyperlipidemia, unspecified (2) HTN (hypertension) SNOMED Code(s): 62423741 ICD Code: I10 - ESSENTIAL (PRIMARY) HYPERTENSION Status: Chronic Priority: Medium Current Visit: No Qualifiers: Hypertension type: unspecified Qualified Code(s): I10 - Essential (primary) hypertension (3) Recurrent UTI SNOMED Code(s): 855186845 ICD Code: N39.0 - URINARY TRACT INFECTION, SITE NOT SPECIFIED Status: Chronic Priority: Low Current Visit: No (4) Depression SNOMED Code(s): 07513511 ICD Code: F32.9 - MAJOR DEPRESSIVE DISORDER, SINGLE EPISODE, UNSPECIFIED Status: Chronic Priority: Low Current Visit: No Qualifiers: Depression Type: other depression Qualified Code(s): F32.89 - Other specified depressive episodes (5) History of melanoma SNOMED Code(s): 480826983 ICD Code: Z85.820 - PERSONAL HISTORY OF MALIGNANT MELANOMA OF SKIN Status: Chronic Priority: Low Current Visit: No (6) Abnormal CT scan, kidney SNOMED Code(s): 217048234, 192364551, 57543624813801867 ICD Code: R93.429 - ABNORMAL RADIOLOGIC FINDINGS ON DX IMAGING OF UNSP KIDNEY Status: Acute Priority: Medium Current Visit: Yes (7) Back pain SNOMED Code(s): 940023221 ICD Code: M54.9 - DORSALGIA, UNSPECIFIED Status: Acute Priority: High Current Visit: Yes Qualifiers: Back pain location: thoracic back pain Chronicity: acute Back pain laterality: unspecified Qualified Code(s): M54.6 - Pain in thoracic spine (8) Hypokalemia SNOMED Code(s): 12559963 ICD Code: E87.6 - HYPOKALEMIA Status: Acute Priority: High Current Visit: Yes (9) Lumbar compression fracture SNOMED Code(s): 397823699 ICD Code: S32.000A - WEDGE COMPRESSION FRACTURE OF UNSP LUMBAR VERTEBRA, INIT Status: Chronic Priority: High Current Visit: Yes Qualifiers: Encounter type: subsequent encounter Lumbar vertebra fracture level: L1 Fracture healing: with routine healing Qualified Code(s): S32.010D - Wedge compression fracture of first lumbar vertebra, subsequent encounter for fracture with routine healing (10) Thoracic compression fracture SNOMED Code(s): 011799088 ICD Code: S22.000A - WEDGE COMPRESSION FRACTURE OF UNSP THORACIC VERTEBRA, INIT Status: Chronic Priority: High Current Visit: Yes Qualifiers: Encounter type: subsequent encounter Thoracic vertebra fracture level: T12 Fracture healing: with routine healing Qualified Code(s): S22.080D - Wedge compression fracture of T11-T12 vertebra, subsequent encounter for fracture with routine healing (11) Encounter for pain management SNOMED Code(s): 828538137 ICD Code: R52 - PAIN, UNSPECIFIED Status: Acute Priority: High Current Visit: Yes (12) History of pulmonary embolus (PE) SNOMED Code(s): 653858736 ICD Code: Z86.711 - PERSONAL HISTORY OF PULMONARY EMBOLISM Status: Chronic Priority: Low Current Visit: No (13) Chronic constipation SNOMED Code(s): 607797068 ICD Code: K59.09 - OTHER CONSTIPATION Status: Chronic Priority: Medium Current Visit: No (14) H/O recurrent pneumonia SNOMED Code(s): 392096303 ICD Code: Z87.01 - PERSONAL HISTORY OF PNEUMONIA (RECURRENT) Status: Chronic Priority: Low Current Visit: No (15) H/O recurrent urinary tract infection SNOMED Code(s): 509116675 ICD Code: Z87.440 - PERSONAL HISTORY OF URINARY (TRACT) INFECTIONS Status: Chronic Priority: Low Current Visit: No (16) Hypothyroidism SNOMED Code(s): 36999471 ICD Code: E03.9 - HYPOTHYROIDISM, UNSPECIFIED Status: Chronic Priority: Low Current Visit: No Qualifiers: Hypothyroidism type: unspecified Qualified Code(s): E03.9 - Hypothyroidism, unspecified (17) Osteopenia SNOMED Code(s): 855752532 ICD Code: M85.80 - OTH DISRD OF BONE DENSITY AND STRUCTURE, UNSPECIFIED SITE Status: Chronic Priority: Medium Current Visit: Yes Qualifiers: Osteopenia location: multiple sites Qualified Code(s): M85.89 - Other specified disorders of bone density and structure, multiple sites (18) Osteoarthritis SNOMED Code(s): 224287597 ICD Code: M19.90 - UNSPECIFIED OSTEOARTHRITIS, UNSPECIFIED SITE Status: Chronic Priority: Medium Current Visit: No Qualifiers: Osteoarthritis location: multiple joints Osteoarthritis type: primary Qualified Code(s): M89.49 - Other hypertrophic osteoarthropathy, multiple sites (19) History of kyphoplasty SNOMED Code(s): 256054417 ICD Code: Z98.890 - OTHER SPECIFIED POSTPROCEDURAL STATES Status: Chronic Priority: Medium Current Visit: Yes (20) Kyphosis deformity of spine Status: Chronic Priority: Low Current Visit: No Qualifiers: Kyphosis type: unspecified Spinal region: unspecified Qualified Code(s): M40.209 - Unspecified kyphosis, site unspecified Problem List Initiated/Reviewed/Updated: Yes Orders Last 24hrs: Active Orders 24 hr Category Date Time Status EKG 12 Lead [EKG Documentation Completion] [RC] STAT Care 08/13/20 11:11 Active Peripheral IV Care [RC] . DIRECTED Care 08/13/20 08:47 Active Peripheral IV Care [RC] . DIRECTED Care 08/13/20 08:48 Active CORONAVIRUS COVID-19 AMY [MOLEC] Stat Lab 08/13/20 12:55 Received UA W/GERSON RFLX IF INDICATED [URIN] Stat Lab 08/13/20 10:22 Ordered Potassium Chloride [KCl in Water 10 MEQ/100 ML] 10 meq Med 08/13/20 12:46 Active Premix Bag 1 bag IV ONETIME Sodium Chloride 0.9% [Saline Flush] Med 08/13/20 08:47 Active 10 ml FLUSH ASDIRECTED PRN Sodium Chloride 0.9% [Saline Flush] Med 08/13/20 10:04 Active 10 ml FLUSH ONETIME PRN Peripheral IV Insertion Adult [OM.PC] Routine Oth 08/13/20 08:47 Ordered Medication Orders Potassium Chloride 10 meq/ (Premix) 100 mls @ 100 mls/hr IV ONETIME ONE Stop: 08/13/20 13:45 Sodium Chloride (Sodium Chloride 0.9% 10 Ml Syringe) 10 ml FLUSH ASDIRECTED PRN PRN Reason: Keep Vein Open Last Admin: 08/13/20 09:11 Dose: 10 ml Documented by: [place]O Sodium Chloride (Sodium Chloride 0.9% 10 Ml Syringe) 10 ml FLUSH ONETIME PRN PRN Reason: IV FLUSH Last Admin: 08/13/20 11:23 Dose: 10 ml Documented by: EKTA Assessment/Plan Comment:: Assessment - day of admission 08/13/2020 * 85-year-old female who presents to ED with severe back pain. * History of HLD, HTN, PE, recurrent pneumonia, chronic constipation, recurrent UTIs, osteoarthritis, osteopenia, depression, hypothyroidism, anemia, and melanoma * Reports about a month ago she leaned over an ironing board and sustained thoracic compression fractures. * Underwent kyphoplasty at 3 levels in [place] with minimal relief. * 6 days ago she presented to ED with severe back pain which showed a new L1 compression deformity. * Underwent another kyphoplasty procedure yesterday, 08/12/2020 in [place]. * Has had pain control issues since her initial injury. * Report pain is best controlled when taking hydrocodone, ibuprofen, and APAP. * Recently started on a 25 mg/h fentanyl patch and Percocet every 6 hours with minimal improvement. * Pain is throughout her entire back but worse in her low back area; Dull, severe, and constant but worse with movement. * Does have home health services and her helping her. * Denies any infectious symptoms such as fever, cough, shortness of breath, chest pain, abdominal pain, nausea, vomiting, diarrhea, urinary symptoms. * On MiraLAX for chronic constipation and having BMs. * 12-lead EKG shows NSR at 83 BPM with LVH pattern. Q-waves noted in III, aVF, and V1. No signs of ischemia. * Labs are obtained in ED: * WBC of 6.47. * Hemoglobin is 13.6. * Platelets are 271,000. * Neutrophils are elevated at 70.4%. * Sed rate is 20. * Sodium is 144. * Potassium is quite low at 2.6. * Chloride 104. * Carbon dioxide 26. * Anion gap is 16.6. * BUN is 13, Creatinine 0.7, GFR is greater than 60. * Glucose is 154. * Calcium 8.5. * Bilirubin 0.8. * AST is 20, ALT 43, alkaline phosphatase 183. * CRP is 3.0. * Protein is 6.7. * Albumin is 3.0. * Phosphorus is 3.6. * Magnesium is 1.8. * CT scan of the chest is obtained: * Shows scarring within both lung bases * Compression deformities within the thoracic spine with prior vertebroplasty. * Displacement of the posterior vertebral line into the central canal causing central canal stenosis. Central canal stenosis appears more prominent than seen on prior CT thoracic spine study. * No other acute abnormalities appreciated. * CT of the abdomen and pelvis is obtained: * Shows a prior vertebroplasty with an L1 which is an interval change from prior study and appears within normal limits. * There is a fair amount of stool within the rectum. * There is a slightly abnormal left kidney and difficult to exclude very early neoplasm. Suggest repeat contrast CT exam of the abdomen in 6 months to further evaluate for stability. * Other findings which are believed to be incidental are found and noted. * She is given potassium chloride supplementation and a [place] for pain. She is also given Toradol which greatly improves her pain. * Admitted to floor observation status for potassium supplementation, PT OT assessment, and further pain control. PLAN: Lumbar compression fracture Thoracic compression fracture Encounter for pain management History of kyphoplasty Osteopenia Osteoarthritis Back pain Kyphosis of the spine * MRI to rule out cauda equina syndrome * PT/OT consult * CM/SW consult * Pain medications as ordered Hypokalemia * Supplement * Monitor labs * Telemetry Abnormal CT scan, kidney * Follow-up with PCP * Radiologist recommending repeat CT of abdomen with contrast in 6 months () to check stability Chronic constipation * Home and PRN laxatives/stool softeners * Monitor output HLD (hyperlipidemia) HTN (hypertension) Depression Hypothyroidism * No acute concerns * Continue home medications * Monitor vital signs Recurrent UTI History of melanoma History of pulmonary embolus (PE) H/O recurrent pneumonia H/O recurrent urinary tract infection * No acute concerns * Monitor Code Status: DNR/DNI PCP: Tita Turner NP DVT prophylaxis: Lovenox Social: Patient resides with her at [facility] in a [facility]. She does have home health assisting her already in place. Disposition: Patient admitted observation status with telemetry for potassium bryan pplementation, PT/OT, and pain control. Anticipate length of stay 1 to 2 days - Mortality Measure Prognosis:: Good <Quincy Luz - Last Filed: 08/13/20 15:38> H&P History of Present Illness - General Admit Problem/Dx: Admission Diagnosis/Problem Admission Diagnosis/Problem Back pain Exam - Vital Signs Vital Signs: Last Vital Signs Temp 36.7 C 08/13/20 08:17 Pulse 110 H 08/13/20 08:17 Resp 18 08/13/20 08:17 BP 118/55 L 08/13/20 08:17 Pulse Ox 95 08/13/20 08:17 - Patient Data Lab Results Last 24 hrs: Laboratory Results - last 24 hr 08/13/20 08/13/20 08/13/20 Range/Units 09:13 09:13 09:13 WBC 6.47 (3.98-10.04) K/mm3 RBC 4.58 (3.98-5.22) M/mm3 Hgb 13.4 D (11.2-15.7) gm/dl Hct 40.8 (34.1-44.9) % MCV 89.1 (79.4-94.8) fl MCH 29.3 (25.6-32.2) pg MCHC 32.8 (32.2-35.5) g/dl RDW Std Deviation 49.1 H (36.4-46.3) fL Plt Count 371 H (182-369) K/mm3 MPV 8.5 L (9.4-12.3) fl Neut % (Auto) 78.4 H (34.0-71.1) % Lymph % (Auto) 10.5 L (19.3-51.7) % Powell % (Auto) 9.7 (4.7-12.5) % Eos % (Auto) 1.1 (0.7-5.8) Baso % (Auto) 0.3 (0.1-1.2) % Neut # (Auto) 5.07 (1.56-6.13) K/mm3 Lymph # (Auto) 0.68 L (1.18-3.74) K/mm3 Powell # (Auto) 0.63 H (0.24-0.36) K/mm3 Eos # (Auto) 0.07 (0.04-0.36) K/mm3 Baso # (Auto) 0.02 (0.01-0.08) K/mm3 ESR 20 (0-20) mm/hr Sodium 144 (136-145) mEq/L Potassium 2.6 L D (3.5-5.1) mEq/L Chloride 104 (98-107) mEq/L Carbon Dioxide 26 (21-32) mEq/L Anion Gap 16.6 H (5-15) BUN 13 (7-18) mg/dL Creatinine 0.7 (0.55-1.02) mg/dL Est Cr Clr Drug Dosing 48.16 mL/min Estimated GFR (MDRD) > 60 (>60) mL/min BUN/Creatinine Ratio 18.6 H (14-18) Glucose 154 H (70-99) mg/dL Calcium 8.5 (8.5-10.1) mg/dL Phosphorus (2.6-4.7) mg/dL Magnesium (1.8-2.4) mg/dL Total Bilirubin 0.8 (0.2-1.0) mg/dL AST 20 (15-37) U/L ALT 43 (14-59) U/L Alkaline Phosphatase 183 H (46-116) U/L C-Reactive Protein 3.0 H* (<1.0) mg/dL Total Protein 6.7 (6.4-8.2) g/dl Albumin 3.0 L (3.4-5.0) g/dl Globulin 3.7 gm/dL Albumin/Globulin Ratio 0.8 L (1-2) SARS-CoV-2 RNA (AMY) (NEGATIVE) 08/13/20 08/13/20 Range/Units 09:13 12:55 WBC (3.98-10.04) K/mm3 RBC (3.98-5.22) M/mm3 Hgb (11.2-15.7) gm/dl Hct (34.1-44.9) % MCV (79.4-94.8) fl MCH (25.6-32.2) pg MCHC (32.2-35.5) g/dl RDW Std Deviation (36.4-46.3) fL Plt Count (182-369) K/mm3 MPV (9.4-12.3) fl Neut % (Auto) (34.0-71.1) % Lymph % (Auto) (19.3-51.7) % Powell % (Auto) (4.7-12.5) % Eos % (Auto) (0.7-5.8) Baso % (Auto) (0.1-1.2) % Neut # (Auto) (1.56-6.13) K/mm3 Lymph # (Auto) (1.18-3.74) K/mm3 Powell # (Auto) (0.24-0.36) K/mm3 Eos # (Auto) (0.04-0.36) K/mm3 Baso # (Auto) (0.01-0.08) K/mm3 ESR (0-20) mm/hr Sodium (136-145) mEq/L Potassium (3.5-5.1) mEq/L Chloride (98-107) mEq/L Carbon Dioxide (21-32) mEq/L Anion Gap (5-15) BUN (7-18) mg/dL Creatinine (0.55-1.02) mg/dL Est Cr Clr Drug Dosing mL/min Estimated GFR (MDRD) (>60) mL/min BUN/Creatinine Ratio (14-18) Glucose (70-99) mg/dL Calcium (8.5-10.1) mg/dL Phosphorus 3.6 (2.6-4.7) mg/dL Magnesium 1.8 (1.8-2.4) mg/dL Total Bilirubin (0.2-1.0) mg/dL AST (15-37) U/L ALT (14-59) U/L Alkaline Phosphatase (46-116) U/L C-Reactive Protein (<1.0) mg/dL Total Protein (6.4-8.2) g/dl Albumin (3.4-5.0) g/dl Globulin gm/dL Albumin/Globulin Ratio (1-2) SARS-CoV-2 RNA (AMY) Negative (NEGATIVE) Result Diagrams: 08/13/20 09:13 08/13/20 09:13 Sepsis Event Note - Focused Exam Vital Signs: Vital Signs Temp Pulse Resp BP Pulse Ox 08/13/20 08:17 36.7 C 110 H 18 118/55 L 95 Orders Last 24hrs: Active Orders 24 hr Category Date Time Status Admission Status [Patient Status] [ADT] Routine ADT 08/13/20 14:31 Active Cardiac Monitoring [RC] CONTINUOUS Care 08/13/20 14:58 Active EKG 12 Lead [EKG Documentation Completion] [RC] STAT Care 08/13/20 11:11 Active Height and Weight [RC] DAILY Care 08/13/20 14:58 Active Intake and Output [RC] DAILY Care 08/13/20 14:58 Active Oxygen Therapy [RC] ASDIRECTED Care 08/13/20 14:58 Active Peripheral IV Care [RC] . DIRECTED Care 08/13/20 08:47 Active Peripheral IV Care [RC] . DIRECTED Care 08/13/20 08:48 Active Pulse Oximetry [RC] PRN Care 08/13/20 14:58 Active Up With Assistance [RC] ASDIRECTED Care 08/13/20 14:58 Active Up to Chair [RC] ASDIRECTED Care 08/13/20 14:58 Active Vital Signs [RC] Q6H Care 08/13/20 14:58 Active Consult to Case Management/Outdoor Education Teacher [CONS] Cons 08/13/20 14:58 Active Routine Consult to Spiritual Care [CONS] Routine Cons 08/13/20 14:58 Active OT Evaluation and Treatment [CONS] Routine Cons 08/13/20 15:01 Active PT Evaluation and Treatment [CONS] Routine Cons 08/13/20 15:01 Active Regular Diet [DIET] Diet 08/13/20 Lunch Active Lumbar Spine Comp w wo Cont [MR] Routine Exams 08/13/20 13:20 Ordered CBC WITH AUTO DIFF [HEME] AM Lab 08/14/20 05:11 Ordered CBC WITH AUTO DIFF [HEME] AM Lab 08/15/20 05:11 Ordered CBC WITH AUTO DIFF [HEME] AM Lab 08/16/20 05:11 Ordered CBC WITH AUTO DIFF [HEME] AM Lab 08/17/20 05:11 Ordered COMPREHENSIVE METABOLIC PN,CMP [CHEM] AM Lab 08/14/20 05:11 Ordered COMPREHENSIVE METABOLIC PN,CMP [CHEM] AM Lab 08/15/20 05:11 Ordered COMPREHENSIVE METABOLIC PN,CMP [CHEM] AM Lab 08/16/20 05:11 Ordered COMPREHENSIVE METABOLIC PN,CMP [CHEM] AM Lab 08/17/20 05:11 Ordered MAGNESIUM [CHEM] AM Lab 08/14/20 05:11 Ordered MAGNESIUM [CHEM] AM Lab 08/15/20 05:11 Ordered MAGNESIUM [CHEM] AM Lab 08/16/20 05:11 Ordered MAGNESIUM [CHEM] AM Lab 08/17/20 05:11 Ordered UA W/GERSON RFLX IF INDICATED [URIN] Stat Lab 08/13/20 10:22 Ordered Acetaminophen [TylenoL] Med 08/13/20 14:58 Active 650 mg PO Q4H PRN Acetaminophen/HYDROcodone [[place] 325-5 MG] Med 08/13/20 15:05 Active 1 tab PO Q4H PRN Aspirin [Halfprin] Med 08/14/20 09:00 Active 81 mg PO DAILY Cholecalciferol (Vitamin D3) [Vitamin D3] Med 08/14/20 09:00 Active 1,000 unit PO DAILY Docusate Sodium/Sennosides [Senna Plus] Med 08/13/20 21:00 Active 2 tab PO BID Enoxaparin [Lovenox] Med 08/14/20 09:00 Active 40 mg SUBCUT DAILY Escitalopram Oxalate Med 08/14/20 09:00 Active 10 mg PO DAILY Ketorolac [Toradol] Med 08/13/20 14:58 Active 15 mg IV Q6H PRN Levothyroxine [Synthroid] Med 08/14/20 06:00 Active 88 mcg PO ACBRK Morphine Med 08/13/20 14:58 Active 2 mg IVPUSH Q2H PRN Ondansetron [Zofran] Med 08/13/20 14:58 Active 4 mg IV Q6H PRN Potassium Bicarbonate/Cit Ac [Effer-K] Med 08/13/20 21:00 Once 20 meq PO ONETIME ONE Rosuvastatin [Crestor] Med 08/13/20 21:00 Active 2.5 mg PO BEDTIME Sodium Chloride 0.9% [Saline Flush] Med 08/13/20 08:47 Active 10 ml FLUSH ASDIRECTED PRN Sodium Chloride 0.9% [Saline Flush] Med 08/13/20 10:04 Active 10 ml FLUSH ONETIME PRN amLODIPine [Norvasc] Med 08/13/20 21:00 Active 10 mg PO BID polyethylene glycoL 3350 [MiraLAX] Med 08/14/20 09:00 Active 17 gm PO DAILY Peripheral IV Insertion Adult [OM.PC] Routine Oth 08/13/20 08:47 Ordered Code Status [Resuscitation Status] Routine Resus Stat 08/13/20 15:22 Ordered Medication Orders Acetaminophen (Acetaminophen 325 Mg Tab) 650 mg PO Q4H PRN PRN Reason: Pain (Mild 1-3)/fever Hydrocodone Bitart/Acetaminophen (Acetaminophen/Hydrocodone 325-5 Mg Tab) 1 tab PO Q4H PRN PRN Reason: Compression fracture T12 Enoxaparin Sodium (Enoxaparin 40 Mg/0.4 Ml Syringe) 40 mg SUBCUT DAILY MARTIN Ketorolac Tromethamine (Ketorolac 30 Mg/Ml Sdv) 15 mg IV Q6H PRN PRN Reason: Pain (moderate 4-6) Morphine Sulfate (Morphine 2 Mg/Ml Syringe) 2 mg IVPUSH Q2H PRN PRN Reason: Pain (severe 7-10) Stop: 08/14/20 15:00 Non-Formulary Medication (Amlodipine [Norvasc]) 10 mg PO BID MARTIN Non-Formulary Medication (Aspirin [Halfprin]) 81 mg PO DAILY MARTIN Non-Formulary Medication (Cholecalciferol (Vitamin D3) [Vitamin D3]) 1,000 unit PO DAILY MARTIN Non-Formulary Medication (Levothyroxine [Synthroid]) 88 mcg PO ACBRK MARTIN Non-Formulary Medication (Rosuvastatin [Crestor]) 2.5 mg PO BEDTIME MARTIN Non-Formulary Medication (Escitalopram Oxalate) 10 mg PO DAILY MARTIN Ondansetron HCl (Ondansetron 4 Mg/2 Ml Sdv) 4 mg IV Q6H PRN PRN Reason: Nausea/Vomiting Polyethylene Glycol (Polyethylene Glycol 3350 Powder 17 Gm Packet) 17 gm PO DAILY MARTIN Potassium Bicarbonate (Potassium Bicarbonate/Cit Ac 20 Meq Effervescent Tab) 20 meq PO ONETIME ONE Stop: 08/13/20 21:01 Senna/Docusate Sodium (Docusate Sodium/Sennosides 50-8.6 Mg Tab) 2 tab PO BID MARTIN Sodium Chloride (Sodium Chloride 0.9% 10 Ml Syringe) 10 ml FLUSH ASDIRECTED PRN PRN Reason: Keep Vein Open Last Admin: 08/13/20 09:11 Dose: 10 ml Documented by: [place] Sodium Chloride (Sodium Chloride 0.9% 10 Ml Syringe) 10 ml FLUSH ONETIME PRN PRN Reason: IV FLUSH Last Admin: 08/13/20 11:23 Dose: 10 ml Documented by: EKTA Assessment/Plan Comment:: I have seen and examined the patient independently of Abhay Middleton PA-C, and have reviewed the case with him. I have reviewed and agree with the plan and care as outlined by him. Please see orders.
[2020-08-13] MEDS ORDERED: Ketorolac 30 MG/ML SDV IV PRN (14:58)
[2020-08-13] MEDS ORDERED: Acetaminophen 325 MG Tab PO PRN (14:58)
[2020-08-13] MEDS ORDERED: Morphine 2 MG/ML SYRINGE IVPUSH PRN (14:58)
[2020-08-13] MEDS ORDERED: Ondansetron 4 MG/2 ML SDV IV PRN (14:58)
[2020-08-13] MEDS ORDERED: LORazepam 2 MG/ML SDV IVPUSH ONE (15:45)
[2020-08-13] MEDS ORDERED: Sodium Chloride 0.9% 10 ML Syringe FLUSH SCH (16:30)
[2020-08-13] MEDS ORDERED: Gadobenate Dimeglumine 529 MG/ML 15 ML SDV IVPUSH ONE (16:45)
[2020-08-13] MEDS ORDERED: Non-Formulary Medication 1 Each (Acetaminophen 500 MG Tablet) PO PRN (18:20)
[2020-08-13] MEDS ORDERED: Sennosides 8.6 MG Tab PO SCH (21:00)
[2020-08-13] MEDS ORDERED: Non-Formulary Medication 1 Each (Rosuvastatin [Crestor] 10 MG Tablet) PO SCH ×2 (21:00)
[2020-08-13] MEDS ORDERED: Potassium Bicarbonate/Cit Ac 20 MEQ Effervescent Tab PO ONE (21:00)
[2020-08-13] MEDS ORDERED: fentaNYL 12 MCG/HR Transdermal Patch TOP SCH (22:00)
[2020-08-13] MEDS ORDERED: [UNRECOGNIZED DRUG - REMARK] TRDERM SCH (22:00)
[2020-08-13] MEDS: ROSUVASTATIN 5 MG PO SCH (23:09)
[2020-08-13] MEDS: AMLODIPINE 5 MG PO SCH (23:09)
[2020-08-14] MEDS: Ketorolac 15 MG/ML SDV IVPUSH PRN ×3 (03:07→09:15)
[2020-08-14] MEDS ORDERED: Non-Formulary Medication 1 Each (Levothyroxine [Synthroid] 88 MCG Tablet) PO SCH (06:00)
[2020-08-14] MEDS: AMLODIPINE 5 MG PO SCH ×2 (08:30→20:00)
[2020-08-14] MEDS: Cholecalciferol (Vitamin D3) 25 MCG Tab PO SCH (08:30)
[2020-08-14] MEDS: Aspirin 81 MG Tab.EC PO SCH (08:30)
[2020-08-14] MEDS: Polyethylene Glycol 3350 Powder 17 GM Packet PO SCH (08:30)
[2020-08-14] MEDS: Enoxaparin 40 MG/0.4 ML Syringe SUBCUT SCH (08:31)
[2020-08-14] MEDS ORDERED: Polyethylene Glycol 3350 Powder 17 GM Packet PO SCH (09:00)
[2020-08-14] MEDS ORDERED: Bisacodyl 10 MG Supp RECTAL ONE (09:00)
[2020-08-14] MEDS ORDERED: Potassium Bicarbonate/Cit Ac 20 MEQ Effervescent Tab PO ONE (09:00)
[2020-08-14] MEDS ORDERED: Non-Formulary Medication 1 Each (Aspirin [Halfprin] 81 MG Tab.Ec) PO SCH (09:00)
[2020-08-14] MEDS ORDERED: ESCITALOPRAM OXALATE 10 MG PO SCH (09:00)
[2020-08-14] MEDS ORDERED: Docusate Sodium 100 MG Cap PO SCH (09:00)
[2020-08-14] MEDS ORDERED: POTASSIUM CHLORIDE 20 MEQ PO SCH (09:00)
--- NOTE | 2020-08-14 09:09 | MR ---
MRI lumbar spine (without and with intravenous contrast) Technique: T1 and T1 post contrast fat suppressed axial images were obtained from above the [id number] disc through the L5-S1 disc. T1 weighted axial images were obtained from above the L1-2 disc through the L5-S1 disc. T1, T2, fat-suppressed inversion recovery and T1 fat-suppressed postcontrast sagittal images were obtained. Comparison: Prior MRI lumbar spine study of 07/03/20. Findings: T10-11: Disc space narrowing is noted. No central canal stenosis is seen. No discrete neural foraminal stenosis is noted. T11-12: There are compression deformities within T11 and T12 which show evidence of vertebroplasty. T12 level shows retrolisthesis of the posterior vertebral body which extends into the central canal by up to 1.0 cm. After contrast administration there is diffuse enhancement being seen around this area and within this posterior vertebral body. Enhancement is also noted within the vertebral bodies of T11 and L1. Enhancement is also seen within the neural foramina at the T11-12 level. This finding causes fairly prominent central canal stenosis. T12-L1: Slight retrolisthesis of L1 is seen. Compression deformity is seen within L1 which shows prior vertebroplasty. This posterior vertebral fragment projects into the central canal by about 4 mm. No central canal stenosis is seen. Neural foramina show no definite stenosis. L1-2: Mild disc space narrowing is seen. Posterior disc shows a concave margin. No central canal stenosis is seen. Neural foramina are patent where the nerve roots exit. L2-3: Posterior disc space narrowing is seen. Very slight circumferential disc bulge is present. Posterior disc has a concave margin. No central canal stenosis is seen. Neural foramina are patent where the nerve roots exit. Mild degenerative apophyseal change is seen. L3-4: Posterior disc space narrowing is seen. Mild degenerative apophyseal changes noted. Slight circumferential disc bulge is seen. Posterior disc maintains a concave margin. No central canal stenosis is seen. Neural foramina are patent where the nerve roots exit. L4-5: Posterior disc space narrowing is seen. Minimal circumferential disc bulge is present. Mild degenerative apophyseal change is seen. Posterior disc maintains a planar margin. No central canal stenosis is seen. Neural foramina are patent where the nerve roots exit. L5-S1: Disc space narrowing is seen. Very minimal circumferential disc bulge is noted. No central canal stenosis is seen. Neural foramina are patent where the nerve roots exit. Cyst is noted within the right kidney measuring approximately 2.6 cm. Conus medullaris and cauda equina show no abnormal signal or mass. Within the pelvis there is enhancement partially being seen posterior to the right iliac wing with a small area of cystic change showing no enhancement and measuring 1.4 cm. This is not completely included on this exam and if patient has symptoms to this region, additional pelvic MRI could be considered. Impression: 1. Enhancement being seen within the area of vertebroplasty within T11, T12 and L1. This presumably is due to previous surgical change but please exclude any infectious etiology. 2. Retrolisthesis of the posterior vertebral body of T12 into the central canal by approximately 1.0 cm causing fairly significant central canal stenosis. This finding is slightly increased from prior MRI. Enhancement also noted within both neural foramina of T11-12. 3. Minimal retrolisthesis is seen of T12 by approximately 4 mm. 4. Other less prominent degenerative change as noted above. 5. Small cystic area with surrounding enhancement being seen posterior to the right iliac wing which is not completely included on this exam. If patient is symptomatic to this region, additional pelvic MRI is recommended which should include contrast. Diagnostic code #3 I mostly agree with preliminary report from [facility] (with an additional finding not on preliminary exam), finalized on 08/13/20, 6:52 PM CDT, code 2
[2020-08-14] MEDS: Acetaminophen/HYDROcodone 325-5 MG Tab PO PRN (10:29)
[2020-08-14] MEDS: Levothyroxine 100 MCG Tab PO SCH (10:30)
[2020-08-14] MEDS: Escitalopram Oxalate 10 MG Tablet PO SCH (10:30)
--- NOTE | 2020-08-14 11:50 | PCM.PN ---
- General Info Date of Service: 08/14/20 Admission Dx/Problem (Free Text): Admission Diagnosis/Problem Admission Diagnosis/Problem Back pain Functional Status: Reports: Pain Controlled, Tolerating Diet, Ambulating, Urinating. Denies: New Symptoms - Review of Systems General: Reports: No Symptoms, Weakness. Denies: Fever, Fatigue, Malaise, Chills HEENT: Reports: No Symptoms. Denies: Headaches, Sore Throat Pulmonary: Reports: No Symptoms. Denies: Shortness of Breath, Cough, Sputum, Wheezing Cardiovascular: Reports: No Symptoms. Denies: Chest Pain, Palpitations, Dyspnea on Exertion, Edema Gastrointestinal: Reports: No Symptoms. Denies: Abdominal Pain, Constipation (Chronic but did have a BM today ), Decreased Appetite, Diarrhea, Nausea, Vomiting Genitourinary: Reports: No Symptoms. Denies: Pain Musculoskeletal: Reports: Back Pain. Denies: Neck Pain, Shoulder Pain, Leg Pain Skin: Reports: No Symptoms. Denies: Cyanosis Neurological: Reports: No Symptoms, Difficulty Walking, Weakness, Gait Disturbance. Denies: Confusion, Dizziness, Headache, Numbness, Pre-Existing Deficit, Seizure, Syncope, Tingling, Tremors, Trouble Speaking Psychiatric: Reports: No Symptoms - Patient Data Vitals - Most Recent: Last Vital Signs Temp 97.7 F 08/14/20 11:11 Pulse 96 08/14/20 11:11 Resp 18 08/14/20 11:11 BP 139/75 08/14/20 11:11 Pulse Ox 98 08/14/20 11:11 Weight - Most Recent: 135 lb 8 oz I&O - Last 24 Hours: Intake & Output 08/13/20 08/14/20 08/14/20 22:59 06:59 14:59 Intake Total 540 Output Total 200 350 Balance -200 190 Lab Results Last 24 Hours: Laboratory Results - last 24 hr 08/13/20 08/14/20 08/14/20 Range/Units 12:55 04:52 04:53 WBC 6.79 (3.98-10.04) K/mm3 RBC 4.43 (3.98-5.22) M/mm3 Hgb 13.1 (11.2-15.7) gm/dl Hct 39.6 (34.1-44.9) % MCV 89.4 (79.4-94.8) fl MCH 29.6 (25.6-32.2) pg MCHC 33.1 (32.2-35.5) g/dl RDW Std Deviation 49.7 H (36.4-46.3) fL Plt Count 323 (182-369) K/mm3 MPV 8.9 L (9.4-12.3) fl Neut % (Auto) 65.6 (34.0-71.1) % Lymph % (Auto) 18.4 L (19.3-51.7) % [place] % (Auto) 12.5 (4.7-12.5) % Eos % (Auto) 2.9 (0.7-5.8) Baso % (Auto) 0.6 (0.1-1.2) % Neut # (Auto) 4.45 (1.56-6.13) K/mm3 Lymph # (Auto) 1.25 (1.18-3.74) K/mm3 [place] # (Auto) 0.85 H (0.24-0.36) K/mm3 Eos # (Auto) 0.20 (0.04-0.36) K/mm3 Baso # (Auto) 0.04 (0.01-0.08) K/mm3 Sodium 143 (136-145) mEq/L Potassium 3.1 L (3.5-5.1) mEq/L Chloride 106 (98-107) mEq/L Carbon Dioxide 28 (21-32) mEq/L Anion Gap 12.1 (5-15) BUN 10 (7-18) mg/dL Creatinine 0.6 (0.55-1.02) mg/dL Est Cr Clr Drug Dosing 53.61 mL/min Estimated GFR (MDRD) > 60 (>60) mL/min BUN/Creatinine Ratio 16.7 (14-18) Glucose 132 H (70-99) mg/dL Calcium 8.5 (8.5-10.1) mg/dL Magnesium 1.9 (1.8-2.4) mg/dL Total Bilirubin 0.8 (0.2-1.0) mg/dL AST 17 (15-37) U/L ALT 35 (14-59) U/L Alkaline Phosphatase 168 H (46-116) U/L Total Protein 6.3 L (6.4-8.2) g/dl Albumin 2.8 L (3.4-5.0) g/dl Globulin 3.5 gm/dL Albumin/Globulin Ratio 0.8 L (1-2) SARS-CoV-2 RNA (AMY) Negative (NEGATIVE) Med Orders - Current: Current Medications Acetaminophen (Acetaminophen 325 Mg Tab) 650 mg PO Q4H PRN PRN Reason: Pain (Mild 1-3)/fever Hydrocodone Bitart/Acetaminophen (Acetaminophen/Hydrocodone 325-5 Mg Tab) 1 tab PO Q4H PRN PRN Reason: Compression fracture T12 Last Admin: 08/14/20 10:29 Dose: 1 tab Documented by: Amlodipine Besylate (Amlodipine 5 Mg Tab Pt Own) 5 mg PO BID [facility] Aspirin (Aspirin 81 Mg Tab.Ec) 81 mg PO DAILY [facility] Last Admin: 08/14/20 08:30 Dose: 81 mg Documented by: Cholecalciferol (Cholecalciferol (Vitamin D3) 25 Mcg Tab) 25 mcg PO DAILY [facility] Last Admin: 08/14/20 08:30 Dose: 25 mcg Documented by: Enoxaparin Sodium (Enoxaparin 40 Mg/0.4 Ml Syringe) 40 mg SUBCUT DAILY [facility] Last Admin: 08/14/20 08:31 Dose: 40 mg Documented by: Fentanyl (Fentanyl 12 Mcg/Hr Transdermal Patch) 24 mcg TOP Q72H [facility] Last Admin: 08/13/20 23:08 Dose: 24 mcg Documented by: Ketorolac Tromethamine (Ketorolac 15 Mg/Ml Sdv) 15 mg IVPUSH Q6H PRN PRN Reason: Pain (moderate 4-6) Last Admin: 08/14/20 09:15 Dose: 15 mg Documented by: Levothyroxine Sodium (Levothyroxine 100 Mcg Tab) 100 mcg PO ACBRK [facility] Last Admin: 08/14/20 10:30 Dose: 100 mcg Documented by: Lidocaine (Lidocaine 4% 1 Each Patch) 1 each TOP DAILY [facility] Miscellaneous Information (Remove Patch Fentanyl 12mcg Patch X 2) 2 ea TRDERM Q72H [facility] Last Admin: 08/13/20 23:08 Dose: 2 ea Documented by: Miscellaneous Information (Remove Lidocaine Patch) 1 ea TRDERM Q24H [facility] Morphine Sulfate (Morphine 2 Mg/Ml Syringe) 2 mg IVPUSH Q2H PRN PRN Reason: Pain (severe 7-10) Stop: 08/14/20 15:00 Rosuvastatin 5mg Tab (Ptom) 0.5 each PO BEDTIME [facility] Last Admin: 08/13/20 23:09 Dose: 0.5 each Documented by: Ondansetron HCl (Ondansetron 4 Mg/2 Ml Sdv) 4 mg IV Q6H PRN PRN Reason: Nausea/Vomiting Escitalopram Oxalate (10 Mg Tablet) 10 each PO DAILY [facility] Last Admin: 08/14/20 10:30 Dose: 10 each Documented by: Polyethylene Glycol (Polyethylene Glycol 3350 Powder 17 Gm Packet) 17 gm PO DAILY [facility] Last Admin: 08/14/20 08:30 Dose: 17 gm Documented by: Senna/Docusate Sodium (Docusate Sodium/Sennosides 50-8.6 Mg Tab) 2 tab PO BID [facility] Last Admin: 08/14/20 08:30 Dose: 2 tab Documented by: Sodium Chloride (Sodium Chloride 0.9% 10 Ml Syringe) 10 ml FLUSH ASDIRECTED PRN PRN Reason: Keep Vein Open Last Admin: 08/13/20 09:11 Dose: 10 ml Documented by: Discontinued Medications Hydrocodone Bitart/Acetaminophen (Acetaminophen/Hydrocodone 325-5 Mg Tab) 1 tab PO ONETIME ONE Stop: 08/13/20 11:33 Last Admin: 08/13/20 11:50 Dose: 1 tab Documented by: Amlodipine Besylate (Amlodipine 5 Mg Tab Pt Own) 10 mg PO BID [facility] Last Admin: 08/14/20 08:30 Dose: 10 mg Documented by: Bisacodyl (Bisacodyl 10 Mg Supp) 10 mg RECTAL ONETIME ONE Stop: 08/14/20 09:01 Last Admin: 08/14/20 08:42 Dose: Not Given Documented by: Diatrizoate Meglum/Diatrizoate Sod (Diatrizoate Meglumine/Diatrizoate Sodium 37% 120 Ml Bottle) 120 ml PO ONETIME ONE Stop: 08/13/20 10:05 Last Admin: 08/13/20 11:23 Dose: 30 ml Documented by: Docusate Sodium (Docusate Sodium 100 Mg Cap) 100 mg PO DAILY [facility] Gadobenate Dimeglumine (Gadobenate Dimeglumine 529 Mg/Ml 15 Ml Sdv) 12 ml IVPUSH ONETIME ONE Stop: 08/13/20 16:46 Last Admin: 08/13/20 16:43 Dose: 12 ml Documented by: Potassium Chloride 10 meq/ (Premix) 100 mls @ 100 mls/hr IV ONETIME ONE Stop: 08/13/20 11:09 Last Admin: 08/13/20 10:54 Dose: 100 mls/hr Documented by: Potassium Chloride 10 meq/ (Premix) 100 mls @ 100 mls/hr IV ONETIME ONE Stop: 08/13/20 13:45 Last Admin: 08/13/20 13:45 Dose: 100 mls/hr Documented by: Iopamidol (Iopamidol 612 Mg/Ml 100 Ml Bottle) 100 ml IVPUSH ONETIME ONE Stop: 08/13/20 10:05 Last Admin: 08/13/20 11:23 Dose: 100 ml Documented by: Ketorolac Tromethamine (Ketorolac 30 Mg/Ml Sdv) 15 mg IVPUSH ONETIME ONE Stop: 08/13/20 08:48 Last Admin: 08/13/20 09:12 Dose: 15 mg Documented by: Ketorolac Tromethamine (Ketorolac 30 Mg/Ml Sdv) 15 mg IV Q6H PRN PRN Reason: Pain (moderate 4-6) Lorazepam (Lorazepam 2 Mg/Ml Sdv) 0.5 mg IVPUSH ONETIME ONE Stop: 08/13/20 15:46 Last Admin: 08/13/20 15:46 Dose: 0.5 mg Documented by: Non-Formulary Medication (Amlodipine [Norvasc]) 10 mg PO BID [facility] Non-Formulary Medication (Aspirin [Halfprin]) 81 mg PO DAILY [facility] Non-Formulary Medication (Levothyroxine [Synthroid]) 88 mcg PO ACBRK [facility] Non-Formulary Medication (Rosuvastatin [Crestor]) 2.5 mg PO BEDTIME [facility] Non-Formulary Medication (Escitalopram Oxalate) 10 mg PO DAILY [facility] Non-Formulary Medication (Acetaminophen) 500 mg PO Q6H PRN PRN Reason: Pain Non-Formulary Medication (Potassium Chloride) 20 meq PO BID [facility] Polyethylene Glycol (Polyethylene Glycol 3350 Powder 17 Gm Packet) 17 gm PO DAILY [facility] Potassium Bicarbonate (Potassium Bicarbonate/Cit Ac 20 Meq Effervescent Tab) 20 meq PO ONETIME ONE Stop: 08/13/20 21:01 Last Admin: 08/13/20 20:12 Dose: 20 meq Documented by: Potassium Bicarbonate (Potassium Bicarbonate/Cit Ac 20 Meq Effervescent Tab) 40 meq PO ONETIME ONE Stop: 08/14/20 09:01 Last Admin: 08/14/20 08:30 Dose: 40 meq Documented by: Potassium Chloride (Potassium Chloride 20 Meq Tab.Er) 40 meq PO ONETIME ONE Stop: 08/13/20 10:11 Last Admin: 08/13/20 10:54 Dose: 40 meq Documented by: Senna (Sennosides 8.6 Mg Tab) 8.6 mg PO BID [facility] Last Admin: 08/13/20 20:13 Dose: 8.6 mg Documented by: Sodium Chloride (Sodium Chloride 0.9% 10 Ml Syringe) 10 ml FLUSH ONETIME PRN PRN Reason: IV FLUSH Last Admin: 08/13/20 11:23 Dose: 10 ml Documented by: Sodium Chloride (Sodium Chloride 0.9% 10 Ml Syringe) 20 ml FLUSH ASDIRECTED [facility] Stop: 08/13/20 18:00 Last Admin: 08/13/20 16:43 Dose: 20 ml Documented by: - Exam Quality Assessment: DVT Prophylaxis. No: Supplemental Oxygen, Urine Catheter General: Alert, Oriented, Cooperative, No Acute Distress (Reports 7/10 back pain but looks comfortable ) HEENT: Pupils Equal, Pupils Reactive, Mucous Membr. Moist/[place] Neck: Supple, Trachea Midline Lungs: Clear to Auscultation, Normal Respiratory Effort Cardiovascular: Regular Rate, Regular Rhythm GI/Abdominal Exam: Normal Bowel Sounds, Soft, Non-Tender. No: No Distention (Female) Exam: Deferred Back Exam: Normal Inspection, Decreased Range of Motion, Other (severely kyphotic ). No: Muscle Spasm, Paraspinal Tenderness, Vertebral Tenderness Extremities: Normal Inspection, Normal Range of Motion, Non-Tender, No Pedal Edema, Normal Capillary Refill Peripheral Pulses: 2+: Dorsalis Pedis (L), Dorsalis Pedis (R), 3+: Radial (L), Radial (R) Skin: Warm, Dry, Intact Wound/Incisions: Dressing Dry and Intact, Other (Small wound on left back with bandage in place 2/2 recent kyphoplasty) Neurological: No New Focal Deficit Psy/Mental Status: Alert, Normal Mood. No: Normal Affect (flat) - Patient Data Lab Results Last 24 hrs: Laboratory Results - last 24 hr 08/13/20 08/14/20 08/14/20 Range/Units 12:55 04:52 04:53 WBC 6.79 (3.98-10.04) K/mm3 RBC 4.43 (3.98-5.22) M/mm3 Hgb 13.1 (11.2-15.7) gm/dl Hct 39.6 (34.1-44.9) % MCV 89.4 (79.4-94.8) fl MCH 29.6 (25.6-32.2) pg MCHC 33.1 (32.2-35.5) g/dl RDW Std Deviation 49.7 H (36.4-46.3) fL Plt Count 323 (182-369) K/mm3 MPV 8.9 L (9.4-12.3) fl Neut % (Auto) 65.6 (34.0-71.1) % Lymph % (Auto) 18.4 L (19.3-51.7) % [place] % (Auto) 12.5 (4.7-12.5) % Eos % (Auto) 2.9 (0.7-5.8) Baso % (Auto) 0.6 (0.1-1.2) % Neut # (Auto) 4.45 (1.56-6.13) K/mm3 Lymph # (Auto) 1.25 (1.18-3.74) K/mm3 [place] # (Auto) 0.85 H (0.24-0.36) K/mm3 Eos # (Auto) 0.20 (0.04-0.36) K/mm3 Baso # (Auto) 0.04 (0.01-0.08) K/mm3 Sodium 143 (136-145) mEq/L Potassium 3.1 L (3.5-5.1) mEq/L Chloride 106 (98-107) mEq/L Carbon Dioxide 28 (21-32) mEq/L Anion Gap 12.1 (5-15) BUN 10 (7-18) mg/dL Creatinine 0.6 (0.55-1.02) mg/dL Est Cr Clr Drug Dosing 53.61 mL/min Estimated GFR (MDRD) > 60 (>60) mL/min BUN/Creatinine Ratio 16.7 (14-18) Glucose 132 H (70-99) mg/dL Calcium 8.5 (8.5-10.1) mg/dL Magnesium 1.9 (1.8-2.4) mg/dL Total Bilirubin 0.8 (0.2-1.0) mg/dL AST 17 (15-37) U/L ALT 35 (14-59) U/L Alkaline Phosphatase 168 H (46-116) U/L Total Protein 6.3 L (6.4-8.2) g/dl Albumin 2.8 L (3.4-5.0) g/dl Globulin 3.5 gm/dL Albumin/Globulin Ratio 0.8 L (1-2) SARS-CoV-2 RNA (AMY) Negative (NEGATIVE) Result Diagrams: 08/14/20 04:52 08/14/20 04:53 Sepsis Event Note - Evaluation Sepsis Screening Result: No Definite Risk - Focused Exam Vital Signs: Vital Signs Temp Pulse Resp BP Pulse Ox 08/14/20 11:11 97.7 F 96 18 139/75 98 08/14/20 08:30 140/89 08/14/20 07:29 97.9 F 98 16 140/89 97 08/14/20 02:32 98.2 F 97 14 145/70 H 94 L - Problem List & Annotations (1) HLD (hyperlipidemia) SNOMED Code(s): 21089715 Code(s): E78.5 - HYPERLIPIDEMIA, UNSPECIFIED Status: Chronic Priority: Low Current Visit: No Qualifiers: Hyperlipidemia type: unspecified Qualified Code(s): E78.5 - Hyperlipidemia, unspecified (2) HTN (hypertension) SNOMED Code(s): 66610664 Code(s): I10 - ESSENTIAL (PRIMARY) HYPERTENSION Status: Chronic Priority: Medium Current Visit: No Qualifiers: Hypertension type: unspecified Qualified Code(s): I10 - Essential (primary) hypertension (3) Recurrent UTI SNOMED Code(s): 166933956 Code(s): N39.0 - URINARY TRACT INFECTION, SITE NOT SPECIFIED Status: Chronic Priority: Low Current Visit: No (4) Depression SNOMED Code(s): 97095268 Code(s): F32.9 - MAJOR DEPRESSIVE DISORDER, SINGLE EPISODE, UNSPECIFIED Status: Chronic Priority: Low Current Visit: No Qualifiers: Depression Type: other depression Qualified Code(s): F32.89 - Other specified depressive episodes (5) History of melanoma SNOMED Code(s): 906136341 Code(s): Z85.820 - PERSONAL HISTORY OF MALIGNANT MELANOMA OF SKIN Status: Chronic Priority: Low Current Visit: No (6) Abnormal CT scan, kidney SNOMED Code(s): 022833294, 314333203, [id number] Code(s): R93.429 - ABNORMAL RADIOLOGIC FINDINGS ON DX IMAGING OF UNSP KIDNEY Status: Acute Priority: Medium Current Visit: Yes (7) Back pain SNOMED Code(s): 439710498 Code(s): M54.9 - DORSALGIA, UNSPECIFIED Status: Acute Priority: High Current Visit: Yes Qualifiers: Back pain location: thoracic back pain Chronicity: acute Back pain laterality: unspecified Qualified Code(s): M54.6 - Pain in thoracic spine (8) Hypokalemia SNOMED Code(s): 47746824 Code(s): E87.6 - HYPOKALEMIA Status: Acute Priority: High Current Visit: Yes (9) Lumbar compression fracture SNOMED Code(s): 499699648 Code(s): S32.000A - WEDGE COMPRESSION FRACTURE OF UNSP LUMBAR VERTEBRA, INIT Status: Chronic Priority: High Current Visit: Yes Qualifiers: Encounter type: subsequent encounter Lumbar vertebra fracture level: L1 Fracture healing: with routine healing Qualified Code(s): S32.010D - Wedge compression fracture of first lumbar vertebra, subsequent encounter for fracture with routine healing (10) Thoracic compression fracture SNOMED Code(s): 234236896 Code(s): S22.000A - WEDGE COMPRESSION FRACTURE OF UNSP THORACIC VERTEBRA, INIT Status: Chronic Priority: High Current Visit: Yes Qualifiers: Encounter type: subsequent encounter Thoracic vertebra fracture level: T12 Fracture healing: with routine healing Qualified Code(s): S22.080D - Wedge compression fracture of T11-T12 vertebra, subsequent encounter for fracture with routine healing (11) Encounter for pain management SNOMED Code(s): 076008401 Code(s): R52 - PAIN, UNSPECIFIED Status: Acute Priority: High Current Visit: Yes (12) History of pulmonary embolus (PE) SNOMED Code(s): 504344553 Code(s): Z86.711 - PERSONAL HISTORY OF PULMONARY EMBOLISM Status: Chronic Priority: Low Current Visit: No (13) Chronic constipation SNOMED Code(s): 603352146 Code(s): K59.09 - OTHER CONSTIPATION Status: Chronic Priority: Medium Current Visit: No (14) H/O recurrent pneumonia SNOMED Code(s): 934504574 Code(s): Z87.01 - PERSONAL HISTORY OF PNEUMONIA (RECURRENT) Status: Chronic Priority: Low Current Visit: No (15) H/O recurrent urinary tract infection SNOMED Code(s): 963816540 Code(s): Z87.440 - PERSONAL HISTORY OF URINARY (TRACT) INFECTIONS Status: Chronic Priority: Low Current Visit: No (16) Hypothyroidism SNOMED Code(s): 73471779 Code(s): E03.9 - HYPOTHYROIDISM, UNSPECIFIED Status: Chronic Priority: Low Current Visit: No Qualifiers: Hypothyroidism type: unspecified Qualified Code(s): E03.9 - Hypothyroidism, unspecified (17) Osteopenia SNOMED Code(s): 624291679 Code(s): M85.80 - OTH DISRD OF BONE DENSITY AND STRUCTURE, UNSPECIFIED SITE Status: Chronic Priority: Medium Current Visit: Yes Qualifiers: Osteopenia location: multiple sites Qualified Code(s): M85.89 - Other specified disorders of bone density and structure, multiple sites (18) Osteoarthritis SNOMED Code(s): 852742082 Code(s): M19.90 - UNSPECIFIED OSTEOARTHRITIS, UNSPECIFIED SITE Status: Chronic Priority: Medium Current Visit: No Qualifiers: Osteoarthritis location: multiple joints Osteoarthritis type: primary Qualified Code(s): M89.49 - Other hypertrophic osteoarthropathy, multiple sites (19) History of kyphoplasty SNOMED Code(s): 770547022 Code(s): Z98.890 - OTHER SPECIFIED POSTPROCEDURAL STATES Status: Chronic Priority: Medium Current Visit: Yes (20) Kyphosis deformity of spine Status: Chronic Priority: Low Current Visit: No Qualifiers: Kyphosis type: unspecified Spinal region: unspecified Qualified Code(s): M40.209 - Unspecified kyphosis, site unspecified - Problem List Review Problem List Initiated/Reviewed/Updated: Yes - My Orders Last 24 Hours: My Active Orders 08/13/20 Lunch Regular Diet [DIET] 08/13/20 14:31 Admission Status [Patient Status] [ADT] Routine 08/13/20 14:58 Cardiac Monitoring [RC] CONTINUOUS Height and Weight [RC] 06 Intake and Output [RC] 04,16 Oxygen Therapy [RC] ASDIRECTED Pulse Oximetry [RC] PRN Up With Assistance [RC] BID Up to Chair [RC] BID Vital Signs [RC] 04,10,16,22 Consult to Case Management/[employer]er [CONS] Routine Consult to Spiritual Care [CONS] Routine Acetaminophen [TylenoL] 650 mg PO Q4H PRN Morphine 2 mg IVPUSH Q2H PRN Ondansetron [Zofran] 4 mg IV Q6H PRN 08/13/20 15:01 OT Evaluation and Treatment [CONS] Routine PT Evaluation and Treatment [CONS] Routine 08/13/20 15:05 Acetaminophen/HYDROcodone [[place] 325-5 MG] 1 tab PO Q4H PRN 08/13/20 15:22 Code Status [Resuscitation Status] Routine 08/13/20 15:41 Ketorolac [Toradol] 15 mg IVPUSH Q6H PRN 08/13/20 21:00 Docusate Sodium/Sennosides [Senna Plus] 2 tab PO BID 08/14/20 06:00 Levothyroxine [Synthroid] 100 mcg PO ACBRK 08/14/20 09:00 Aspirin [Halfprin] 81 mg PO DAILY Cholecalciferol (Vitamin D3) [Vitamin D3] 25 mcg PO DAILY Enoxaparin [Lovenox] 40 mg SUBCUT DAILY Patient's Own Medication [Ptom] 10 each PO DAILY 08/14/20 10:19 amLODIPine [Norvasc] 5 mg PO BID 08/14/20 11:45 Lidocaine 4% [Aspercreme 4%] 1 each TOP DAILY 08/14/20 21:00 Remove Patch 1 ea TRDERM Q24H 08/15/20 05:11 CBC WITH AUTO DIFF [HEME] AM COMPREHENSIVE METABOLIC PN,CMP [CHEM] AM MAGNESIUM [CHEM] AM 08/16/20 05:11 CBC WITH AUTO DIFF [HEME] AM COMPREHENSIVE METABOLIC PN,CMP [CHEM] AM MAGNESIUM [CHEM] AM 08/17/20 05:11 CBC WITH AUTO DIFF [HEME] AM COMPREHENSIVE METABOLIC PN,CMP [CHEM] AM MAGNESIUM [CHEM] AM - Assessment Assessment:: Assessment - day of admission 08/13/2020 * 85-year-old female who presents to ED with severe back pain. * History of HLD, HTN, PE, recurrent pneumonia, chronic constipation, recurrent UTIs, osteoarthritis, osteopenia, depression, hypothyroidism, anemia, and melanoma * Reports about a month ago she leaned over an ironing board and sustained thoracic compression fractures. * Underwent kyphoplasty at 3 levels in [place] with minimal relief. * 6 days ago she presented to ED with severe back pain which showed a new L1 co mpression deformity. * Underwent another kyphoplasty procedure yesterday, 08/12/2020 in [place]. * Has had pain control issues since her initial injury. * Report pain is best controlled when taking hydrocodone, ibuprofen, and APAP. * Recently started on a 25 mg/h fentanyl patch and Percocet every 6 hours with minimal improvement. * Pain is throughout her entire back but worse in her low back area; Dull, severe, and constant but worse with movement. * Does have home health services and her helping her. * Denies any infectious symptoms such as fever, cough, shortness of breath, ch est pain, abdominal pain, nausea, vomiting, diarrhea, urinary symptoms. * On MiraLAX for chronic constipation and having BMs. * 12-lead EKG shows NSR at 83 BPM with LVH pattern. Q-waves noted in III, aVF, and V1. No signs of ischemia. * Labs are obtained in ED: * WBC of 6.47. * Hemoglobin is 13.6. * Platelets are 271,000. * Neutrophils are elevated at 70.4%. * Sed rate is 20. * Sodium is 144. * Potassium is quite low at 2.6. * Chloride 104. * Carbon dioxide 26. * Anion gap is 16.6. * BUN is 13, Creatinine 0.7, GFR is greater than 60. * Glucose is 154. * Calcium 8.5. * Bilirubin 0.8. * AST is 20, ALT 43, alkaline phosphatase 183. * CRP is 3.0. * Protein is 6.7. * Albumin is 3.0. * Phosphorus is 3.6. * Magnesium is 1.8. * CT scan of the chest is obtained: * Shows scarring within both lung bases * Compression deformities within the thoracic spine with prior vertebroplasty. * Displacement of the posterior vertebral line into the central canal causing central canal stenosis. Central canal stenosis appears more prominent than seen on prior CT thoracic spine study. * No other acute abnormalities appreciated. * CT of the abdomen and pelvis is obtained: * Shows a prior vertebroplasty with an L1 which is an interval change from prior study and appears within normal limits. * There is a fair amount of stool within the rectum. * There is a slightly abnormal left kidney and difficult to exclude very early neoplasm. Suggest repeat contrast CT exam of the abdomen in 6 months to further evaluate for stability. * Other findings which are believed to be incidental are found and noted. * She is given potassium chloride supplementation and a [place] for pain. She is also given Toradol which greatly improves her pain. * Admitted to floor observation status for potassium supplementation, PT OT assessment, and further pain control. 08/15/2020 This is an 85-year-old female admitted to the hospital yesterday due to sign ificant acute on chronic back pain with kyphoplasty performed on 08/12/[address] Beach, interventional radiologist with [facility] in [place]. Patient continues to report rather significant pain. No loss of bowel or bladder control. No paresthesia noted. No pain shooting down legs. Patient reports pain is deep and generalized in her back. She reports pain of 7-8 out of 10. She reports pain is worse with movement. She has been up ambulating to the bathroom. She does utilize a walker at home baseline. She has been working with physical and occupational therapy. MRI of the lumbar spine was obtained on 08/13/[address] Morales, radiologist as "1. Enhancement being seen within the area of vertebroplasty within T11, T12 and L1. This presumably is due to previous surgical change but please exclude any infectious etiology. 2. Retrolisthesis of the posterior vertebral body of T12 into the central canal by approximately 1.0 cm causing fairly significant central canal stenosis. This finding is slightly increased from prior MRI. Enhancement also noted within both neural foramina of T11-T12. 3. Minimal retrolisthesis is seen by T12 of approximately 4 mm. 5. Small cystic area with surrounding enhancement being seen posterior to the right iliac wing which is not completely included on this exam. If patient is symptomatic to this region additional pelvic MRI is recommended which should include contrast. There is been no leukocytosis and patient CRP on admission was 3.0. She has had no fevers or other signs of infection. Images were pushed to [facility] in [place] and Dr. Beach was consulted for advice. He contacted Dr. Buckley, neurosurgeon with [facility] in [place]. Both agreed given the severity of patient's osteopenia she would not be a good surgical candidate as screws likely would not hold in her spine. They stated she is not a laminectomy candidate at this time. Pain control was recommended and a lidocaine patch was suggested, along with a good bowel regimen. In reviewing patient's narcotic usage it appears she has just been getting regular Toradol and Tylenol but no narcotics. Did discuss with the patient and nursing how we need to be a little more aggressive with her pain management. Patient updated on plan and in agreement. Overall she states she is doing okay but still has pain. We discussed how we will control the pain is best we can but she will likely continue to have at least some baseline pain. We discussed how she will need to follow-up with Dr. Beach. He did state that she has a standard 1 month follow-up status post kyphoplasty. We will continue current treatment plan as noted above. Plan for discharge hopefully in next 24 hours, unless pain is not controlled. Patient was noted to have a bowel movement today. - Plan Plan:: Lumbar compression fracture Thoracic compression fracture Encounter for pain management History of kyphoplasty Osteopenia Osteoarthritis Back pain Kyphosis of the spine * Start daily lidocaine patch * PT/OT consult * CM/SW consult * Pain medications as ordered * Follow-up with Dr. Beach as scheduled for kyphoplasty follow-up Hypokalemia * Supplement * Monitor labs * Telemetry * Have been utilizing effervescent potassium supplementation as patient has self-reported difficulty swallowing large potassium pills. Abnormal CT scan, kidney * Follow-up with PCP * Radiologist recommending repeat CT of abdomen with contrast in 6 months (02/12/21) to check stability Chronic constipation * Home and PRN laxatives/stool softeners * Monitor output HLD (hyperlipidemia) HTN (hypertension) Depression Hypothyroidism * No acute concerns * Continue home medications * Monitor vital signs Recurrent UTI History of melanoma History of pulmonary embolus (PE) H/O recurrent pneumonia H/O recurrent urinary tract infection * No acute concerns * Monitor Code Status: DNR/DNI PCP: Tita Turner NP DVT prophylaxis: Lovenox Social: [place] [facility] [place] [facility] [place] [place] health assisting her already in place. Disposition: Patient admitted observation status with telemetry for potassium supplementation, PT/OT, and pain control. Anticipate length of stay 1 to 2 days
[2020-08-14] MEDS: Lidocaine 4% 1 each Patch TOP SCH (12:28)
[2020-08-14] MEDS: ROSUVASTATIN 5 MG PO SCH (20:00)
[2020-08-15] MEDS: Acetaminophen/HYDROcodone 325-5 MG Tab PO PRN ×3 (04:50→12:29)
[2020-08-15] MEDS: Levothyroxine 100 MCG Tab PO SCH (04:59)
[2020-08-15] MEDS: Enoxaparin 40 MG/0.4 ML Syringe SUBCUT SCH (08:50)
[2020-08-15] MEDS: Aspirin 81 MG Tab.EC PO SCH (08:50)
[2020-08-15] MEDS: Cholecalciferol (Vitamin D3) 25 MCG Tab PO SCH (08:51)
[2020-08-15] MEDS: Polyethylene Glycol 3350 Powder 17 GM Packet PO SCH (08:51)
[2020-08-15] MEDS: Lidocaine 4% 1 each Patch TOP SCH (08:51)
[2020-08-15] MEDS: AMLODIPINE 5 MG PO SCH (08:52)
[2020-08-15] MEDS: Escitalopram Oxalate 10 MG Tablet PO SCH (08:53)
[2020-08-15] MEDS ORDERED: Potassium Chloride 20 MEQ Tab.ER PO SCH (09:00)
--- NOTE | 2020-08-15 13:52 | PCM.DCSUM1 ---
Discharge Summary - Hospital Course HPI Initial Comments: This is a 85-year-old female who presents to ED on 08/13/2020 with rather severe back pain. She reports about a month ago she leaned over an ironing board and sustained thoracic compression fractures. She underwent kyphoplasty at 3 levels in [place] with minmal relief. Then 6 days ago she presented to ED with severe back pain which showed a new L1 compression deformity. She underwent another kyphoplasty procedure yesterday, 08/12/2020 in [place]. She says she has had pain control issues since her initial injury. She states her pain is best controlled when taking hydrocodone, ibuprofen, and APAP. She states she was recently started on a 25 mg/h fentanyl patch and Percocet every 6 hours with minimal improvement. She states pain is throughout her entire back but worse in her low back area. She reports it is dull, severe, and constant but worse with movement. She is able to get out of bed and ambulate to the bathroom but it is quite difficult. She does have home health services and her helping her. Denies any infectious symptoms such as fever, cough, shortness of breath, chest pain, abdominal pain, nausea, vomiting, diarrhea, urinary symptoms. She is on MiraLAX and having BMs. In the ED temp is 36.7 Celsius. Pulse 110. Respirations 18. Blood pressure 118/55. Pulse ox 95%. Lead EKG is obtained showing a sinus rhythm at 94 bpm. There is LVH pattern with Q waves noted in III, aVF, and V1. Poor R wave transition. Labs are obtained with a WBC of 6.47. Hemoglobin is 13.6. Platelets are 271,000. Neutrophils are elevated at 70.4%. Sed rate is 20. Sodium is 144. Potassium is quite low at 2.6. Chloride 104. Carbon dioxide 26. Anion gap is 16.6. BUN is 13. Creatinine 0.7. GFR is greater than 60. Glucose is 154. Calcium 8.5. Bilirubin 0.8. AST is 20, ALT 43, alkaline phosphatase 183. CRP is 3.0. Protein is 6.7. Albumin is 3.0. Phosphorus is 3.6. Magnesium is 1.8. CT scan of the chest is obtained showing scarring within both lung bases and compression deformities within the thoracic spine with prior vertebroplasty. There is also displacement of the posterior vertebral line into the central canal causing central canal stenosis. Central canal stenosis appears more prominent than seen on prior CT thoracic spine study. No other acute abnormalities appreciated. CT of the abdomen and pelvis is obtained showing a prior vertebroplasty with an L1 which is an interval change from prior study and appears within normal limits. There is a fair amount of stool within the rectum. There is a slightly abnormal left kidney and difficult to exclude very early neoplasm. Suggest repeat contrast CT exam of the abdomen in 6 months to further evaluate for stability. Other findings which are believed to be incidental are found and noted. She is given potassium chloride supplementation and a [place] for pain. She is also given Toradol which greatly improves her pain. Plan is to admit the patient observation status for potassium supplementation, PT OT assessment, and further pain control. She carries a history of HLD, HTN, PE, recurrent pneumonia, chronic constipation, recurrent UTIs, osteoarthritis, osteopenia, depression, hypothyroidism, anemia, and melanoma. PCP is Tita Turner NP. Diagnosis: Stroke: No - Discharge Data Discharge Date: 08/15/20 (Admit date: 08/13/2020) Discharge Disposition: Home, W Home Health Agency 06 Condition: Fair - Referral to Home Health Date of Face to Face Encounter: 08/15/20 Reason for Homebound Status: see discharge summary Primary Care Physician: Tita Turner NP Skilled Need: see discharge summary - Discharge Diagnosis/Problem(s) (1) HLD (hyperlipidemia) SNOMED Code(s): 34565123 ICD Code: E78.5 - HYPERLIPIDEMIA, UNSPECIFIED Status: Chronic Priority: Low Current Visit: No Qualifiers: Hyperlipidemia type: unspecified Qualified Code(s): E78.5 - Hyperlipidemia, unspecified (2) HTN (hypertension) SNOMED Code(s): 95784174 ICD Code: I10 - ESSENTIAL (PRIMARY) HYPERTENSION Status: Chronic Priority: Medium Current Visit: No Qualifiers: Hypertension type: unspecified Qualified Code(s): I10 - Essential (primary) hypertension (3) Recurrent UTI SNOMED Code(s): 173550227 ICD Code: N39.0 - URINARY TRACT INFECTION, SITE NOT SPECIFIED Status: Chronic Priority: Low Current Visit: No (4) Depression SNOMED Code(s): 05007722 ICD Code: F32.9 - MAJOR DEPRESSIVE DISORDER, SINGLE EPISODE, UNSPECIFIED Status: Chronic Priority: Low Current Visit: No Qualifiers: Depression Type: other depression Qualified Code(s): F32.89 - Other specified depressive episodes (5) History of melanoma SNOMED Code(s): 149617794 ICD Code: Z85.820 - PERSONAL HISTORY OF MALIGNANT MELANOMA OF SKIN Status: Chronic Priority: Low Current Visit: No (6) Abnormal CT scan, kidney SNOMED Code(s): 135245546, 361128774, 41379009106646992 ICD Code: R93.429 - ABNORMAL RADIOLOGIC FINDINGS ON DX IMAGING OF UNSP KIDNEY Status: Acute Priority: Medium Current Visit: Yes (7) Back pain SNOMED Code(s): 306535822 ICD Code: M54.9 - DORSALGIA, UNSPECIFIED Status: Acute Priority: High Current Visit: Yes Qualifiers: Back pain location: thoracic back pain Chronicity: acute Back pain laterality: unspecified Qualified Code(s): M54.6 - Pain in thoracic spine (8) Hypokalemia SNOMED Code(s): 51725766 ICD Code: E87.6 - HYPOKALEMIA Status: Acute Priority: High Current Visit: Yes (9) Lumbar compression fracture SNOMED Code(s): 711949232 ICD Code: S32.000A - WEDGE COMPRESSION FRACTURE OF UNSP LUMBAR VERTEBRA, INIT Status: Chronic Priority: High Current Visit: Yes Qualifiers: Encounter type: subsequent encounter Lumbar vertebra fracture level: L1 Fracture healing: with routine healing Qualified Code(s): S32.010D - Wedge compression fracture of first lumbar vertebra, subsequent encounter for fracture with routine healing (10) Thoracic compression fracture SNOMED Code(s): 644992086 ICD Code: S22.000A - WEDGE COMPRESSION FRACTURE OF UNSP THORACIC VERTEBRA, INIT Status: Chronic Priority: High Current Visit: Yes Qualifiers: Encounter type: subsequent encounter Thoracic vertebra fracture level: T12 Fracture healing: with routine healing Qualified Code(s): S22.080D - Wedge compression fracture of T11-T12 vertebra, subsequent encounter for fracture with routine healing (11) Encounter for pain management SNOMED Code(s): 272591581 ICD Code: R52 - PAIN, UNSPECIFIED Status: Acute Priority: High Current Visit: Yes (12) History of pulmonary embolus (PE) SNOMED Code(s): 863882509 ICD Code: Z86.711 - PERSONAL HISTORY OF PULMONARY EMBOLISM Status: Chronic Priority: Low Current Visit: No (13) Chronic constipation SNOMED Code(s): 841728656 ICD Code: K59.09 - OTHER CONSTIPATION Status: Chronic Priority: Medium Current Visit: No (14) H/O recurrent pneumonia SNOMED Code(s): 778969094 ICD Code: Z87.01 - PERSONAL HISTORY OF PNEUMONIA (RECURRENT) Status: Chronic Priority: Low Current Visit: No (15) H/O recurrent urinary tract infection SNOMED Code(s): 282316944 ICD Code: Z87.440 - PERSONAL HISTORY OF URINARY (TRACT) INFECTIONS Status: Chronic Priority: Low Current Visit: No (16) Hypothyroidism SNOMED Code(s): 59807277 ICD Code: E03.9 - HYPOTHYROIDISM, UNSPECIFIED Status: Chronic Priority: Low Current Visit: No Qualifiers: Hypothyroidism type: unspecified Qualified Code(s): E03.9 - Hypothyroidism, unspecified (17) Osteopenia SNOMED Code(s): 289934364 ICD Code: M85.80 - OTH DISRD OF BONE DENSITY AND STRUCTURE, UNSPECIFIED SITE Status: Chronic Priority: Medium Current Visit: Yes Qualifiers: Osteopenia location: multiple sites Qualified Code(s): M85.89 - Other specified disorders of bone density and structure, multiple sites (18) Osteoarthritis SNOMED Code(s): 854517164 ICD Code: M19.90 - UNSPECIFIED OSTEOARTHRITIS, UNSPECIFIED SITE Status: Chronic Priority: Medium Current Visit: No Qualifiers: Osteoarthritis location: multiple joints Osteoarthritis type: primary Qualified Code(s): M89.49 - Other hypertrophic osteoarthropathy, multiple sites (19) History of kyphoplasty SNOMED Code(s): 234340325 ICD Code: Z98.890 - OTHER SPECIFIED POSTPROCEDURAL STATES Status: Chronic Priority: Medium Current Visit: Yes (20) Kyphosis deformity of spine Status: Chronic Priority: Low Current Visit: No Qualifiers: Kyphosis type: unspecified Spinal region: unspecified Qualified Code(s): M40.209 - Unspecified kyphosis, site unspecified - Patient Summary/Data Consults: Consultations 08/13/20 14:58 Consult to Case Management/Closet Builder [CONS] Routine Consult to Spiritual Care [CONS] Routine 08/13/20 15:01 OT Evaluation and Treatment [CONS] Routine PT Evaluation and Treatment [CONS] Routine Labs Pending at D/C: None Repeat CMP ordered for 08/19/2020 with results to PCP. Recommended Follow-up Testing/Procedures: Follow-up with primary care provider within 5 to 7 days of discharge, sooner if needed. -Patient's [place] pain medication was renewed, as patients reports he did not have any pills left. -Patient's potassium was low and supplementation was increased to 40 mEq twice daily for 3 days. Please monitor and follow-up. -Patient and are discussing possible SNF placement next week pending how things go at home. -Abnormality noted on CT scan regarding patients left kidney. Recommend repeat abdominal CT with contrast in 01/2021 to check stability. Follow-up with Dr. Beach, interventional radiologist, as scheduled. Patient's reports he was able to make an appointment with pain management in [place] later this month. Patient advised to keep his appointment. Hospital Course: This is an 85-year-old female patient who presents to ED on 08-13-2020 with severe back pain. She carries a history of HLD, HTN, PE, recurrent pneumonia, chronic constipation, recurrent UTIs, osteoarthritis, osteopenia, depression, hypothyroidism, anemia and melanoma. Approximately a month and a half ago she was leaning over an ironing board and suddenly felt pain, which was result of several thoracic compression fractures. She underwent kyphoplasty at 3 levels in [place] with minimal relief. She again was noted to have significant back pain and was seen in our ED 6 days prior to admission with a new L1 compression deformity. She underwent kyphoplasty in [place] on 08-12-[address] Beach, interventional radiologist. Patient reports her pain has been minimally controlled since her original injury. There was no leukocytosis noted and no infectious symptoms. No numbness or tingling down her legs, or loss of bowel or bladder control. No paresthesias noted throughout her stay. CT scan of the chest was obtained and shows scarring within both lung bases along with compression deformities within the thoracic spine with prior vertebroplasty. There is displacement of the posterior vertebral line into the central canal causing central canal stenosis in the central canal stenosis appears to be more prominent than on prior CT of thoracic spine. CT the abdomen pelvis was obtained which shows prior vertebroplasty with L1 which is an interval change from prior study and appears within normal limits. There is a fair amount of stool within the rectum. There is also a slightly abnormal left kidney and difficult to exclude very early neoplasm. Radiology suggest repeat contrast CT exam of the abdomen in 6 months to further evaluate for stability. And other incidental findings are noted. She is given potassium supplementation, [place], and Toradol which improved her pain and subsequently admitted to the floor for observation. MRI of the lumbar spine was obtained on 08/13/[address] Morales, radiologist as "1. Enhancement being seen within the area of vertebroplasty within T11, T12 and L1. This presumably is due to previous surgical change but please exclude any infectious etiology. 2. Retrolisthesis of the posterior vertebral body of T12 into the central canal by approximately 1.0 cm causing fairly significant central canal stenosis. This finding is slig htly increased from prior MRI. Enhancement also noted within both neural foramina of T11-T12. 3. Minimal retrolisthesis is seen by T12 of approximately 4 mm. 5. Small cystic area with surrounding enhancement being seen posterior to the right iliac wing which is not completely included on this exam. If patient is symptomatic to this region additional pelvic MRI is recommended which should include contrast." Dr. Beach, interventional radiologist is contacted with the results of the MRI and all images are pushed to [facility]. He reports things look good as far as her prior surgeries are concerned and that the patient has a very brittle back. He did contact Dr. Buckley, neurosurgeon with [facility] in [place] and both agree that the patient is not a surgical candidate. They report that patient is not a candidate for laminectomy at this time as she has no significant neurological symptoms. He suggested lidocaine patch and pain control. Later, Dr. Warner, hospitalist is contacted and Dr. Buckley is again contacted to discuss patient's case as it is felt she may benefit from a neurosurgeon examination. Again it is noted that the patient is not a surgical candidate given her advanced age and very poor spine stability. Discussion ensued about whether or not patient would need to be transferred for pain control and ultimately it was decided the patient will remain here. Plan was to transfer patient if she decompensates, which she did not. Throughout her stay patient has been working with PT/OT who are recommending home with home health. Patient was able to ambulate 150 feet standby assist today. She had been receiving IV Toradol for pain. She was noting constipation on admission, as she does have a significant history of chronic constipation. She was given senna +2 tablet twice daily which resulted in regular bowel movements. Throughout her stay patient reported significant pain of 7-8 over 10, however she did look quite comfortable. She was ambulating to the restroom. Ultimately decision was had over discharge disposition. Social work was consulted and did offer patient SNF admission paperwork. and patient report that they will work on this and likely try to have her placed on Tuesday, as it is a holiday weekend. Discussion ensued whether to keep patient until Tuesday or discharged home and ultimately the patient and her reported they would like her to discharge home with continued home health services. We did discuss how she may return if things do not go well at home. Unfortunately she is a high readmission risk given the severity of her osteopenia and prior back injuries. They will resume home health services at discharge, as these were in place prior. Her [place] prescription was renewed. She was started on 4% lidocaine patches daily. She was also noted to be hypokalemic throughout her stay. She is on 20 mill equivalent oral potassium twice daily and this was increased to 40 mEq oral potassium twice daily for 3 days after discharge, repeat orders for CMP were placed for [id number]. Other home medications were continued. Recommend follow-up with primary care provider within 5 to 7 days of discharge, sooner if needed. Recommend repeat CBC, CMP, and magnesium at that time. Recommend follow-up with Dr. Beach as scheduled. Patient's reports he has been in contact with Dr. Beach throughout the patient's stay. He was also able to contact pain management in [place] and make the patient an appointment, which is an excellent idea. Advised patient to follow-up with this appointment as scheduled. She will be discharged home today. She was instructed to continue to utilize a walker. She was instructed to continue to return the emergency room or contact her primary care provider should symptoms return or worsen. - Patient Instructions Diet: Usual Diet as Tolerated Activity: As Tolerated Driving: Do Not Drive Showering/Bathing: May Shower Notify Provider of: Fever, Increased Pain, Nausea and/or Vomiting Other/Special Instructions: With primary care provider within 5-7 days of discharge, sooner if needed. Follow-up with Dr. Baum, interventional radiologist, as scheduled. Follow-up with pain managment as we discussed. We ordered repeat lab draws for next 08/19/2020. This will be sent to your primary care provider. Continue your home health PT/OT as ordered prior. You may take [id number] Tylenol and/or ibuprofen as needed for pain. Be cautious as ibuprofen can lead to stomach ulcers. We started you on a lidocaine patch while here. Continue to wear these as directed. Continue your other home pain medications as directed. Resume home medications as directed. As we discussed if you feel you are having difficulty at home you may consider senior care placement. Overall our team feels we are not at this point yet as you have been ambulating fairly well and been able to get up to the bathroom, albeit with significant pain. As we discussed, narcotics can worsen constipation and you are on several for your back pain. Being more sedentary also worsens your risk for constipation. You are on several constipation meds. Be sure to keep up with this and drink plenty of water. If you have not had a bowel movement in several days you may take toym-eyr-lirpauc magnesium citrate or contact your primary care provider for further guidance. Potassium was low here, even with your home supplementation. Prescription was sent for an increase in your home supplementation for a few days. This new dosing will be 40 mill equivalents twice a day for 3 more days. After finishing this you should return to your 20 mill equivalents twice daily dosing as prior. Your primary care provider will monitor your potassium at future appointments. Should symptoms return or worsen contact primary care provider or return the emergency room. - Discharge Plan *PRESCRIPTION DRUG MONITORING PROGRAM REVIEWED*: No *COPY OF PRESCRIPTION DRUG MONITORING REPORT IN PATIENT MADHAVI: No Prescriptions/Med Rec: Lidocaine 4% [Aspercreme 4%] 1 each TOP DAILY #20 patch Docusate Sodium [Colace] 100 mg PO BID #40 cap Hydrocodone/Acetaminophen [Hydrocodone-Acetamin 5-325 mg] 1 - 2 each PO Q4H PRN #30 tablet PRN Reason: Severe back pain Potassium Chloride [Klor-Con M20] 40 meq PO BID #12 tab.er Home Medications: Home Meds Cholecalciferol (Vitamin D3) [Vitamin D3] 1,000 unit PO DAILY 09/06/14 [History] Multivit-Min/FA/Lycopen/Lutein [Centrum Silver Tablet] 1 tab PO DAILY 09/06/14 [History] Aspirin [Halfprin] 81 mg PO DAILY tab.ec 09/12/14 [Rx] Rosuvastatin [Crestor] 2.5 mg PO BEDTIME tablet 09/12/14 [Rx] amLODIPine [Norvasc] 5 mg PO BID 11/03/15 [History] B2/Vits A,C,E/Lut/Zeaxanth/Min [Icaps] 1 tab PO DAILY 06/24/20 [History] Escitalopram Oxalate [Lexapro] 10 mg PO DAILY 06/24/20 [History] Acetaminophen 500 mg PO Q6H PRN 08/13/20 [History] Denosumab [Prolia] 60 mg IM ASDIRECTED 08/13/20 [History] Sennosides [Senna] 8.6 mg PO BID 08/13/20 [History] fentaNYL [Duragesic] 24 mcg TOP Q72H 08/13/20 [History] polyethylene glycoL 3350 [MiraLAX] 17 gm PO DAILY 08/13/20 [History] Levothyroxine Sodium [Levothyroxine] 100 mcg PO DAILY 08/14/20 [History] Docusate Sodium [Colace] 100 mg PO BID #40 cap 08/15/20 [Rx] Hydrocodone/Acetaminophen [Hydrocodone-Acetamin 5-325 mg] 1 - 2 each PO Q4H PRN #30 tablet 08/15/20 [Rx] Lidocaine 4% [Aspercreme 4%] 1 each TOP DAILY #20 patch 08/15/20 [Rx] Potassium Chloride [Klor-Con M20] 40 meq PO BID #12 tab.er 08/15/20 [Rx] Oxygen Therapy Mode: Room Air Patient Handouts: Lumbar Spine Fracture, Chronic Back Pain, Wefd-wl-Wcjg, Kyphosis Forms: ED Department Discharge Referrals: Tita Turner NP [Primary Care Provider] - 08/25/20 10:30 am (this is your check in time the appointment is at 11:00.) - Discharge Summary/Plan Comment DC Time >30 min.: Yes (60 minutes ) - General Info Date of Service: 08/15/20 Admission Dx/Problem (Free Text: Admission Diagnosis/Problem Admission Diagnosis/Problem Back pain Functional Status: Reports: Pain Controlled (for the most part. ), Tolerating Diet, Ambulating, Urinating. Denies: New Symptoms, Incentive Spirometry - Review of Systems General: Reports: No Symptoms, Weakness. Denies: Fever, Fatigue, Malaise, Chills HEENT: Reports: No Symptoms. Denies: Headaches, Sore Throat Pulmonary: Reports: No Symptoms. Denies: Shortness of Breath, Cough, Sputum, Wheezing Cardiovascular: Reports: No Symptoms. Denies: Chest Pain, Palpitations, Dyspnea on Exertion, Edema Gastrointestinal: Reports: No Symptoms. Denies: Abdominal Pain, Constipation (has been having regualr BMs since admission), Diarrhea, Nausea, Vomiting Genitourinary: Reports: No Symptoms. Denies: Pain Musculoskeletal: Reports: Back Pain Skin: Reports: No Symptoms. Denies: Cyanosis Neurological: Reports: Pre-Existing Deficit (utilizes walker at home ), Difficulty Walking (2/2 pain ). Denies: Confusion, Dizziness, Headache, Numbness, Syncope, Tingling, Weakness, Gait Disturbance Psychiatric: Reports: No Symptoms - Patient Data Vitals - Most Recent: Last Vital Signs Temp 98.2 F 08/15/20 07:33 Pulse 95 08/15/20 07:33 Resp 18 08/15/20 07:33 BP 144/63 H 08/15/20 08:52 Pulse Ox 95 08/15/20 07:33 Weight - Most Recent: 134 lb 6.4 oz I&O - Last 24 hours: Intake & Output 08/14/20 08/15/20 08/15/20 22:59 06:59 14:59 Intake Total 270 450 120 Output Total 900 500 Balance -630 -50 120 Lab Results - Last 24 hrs: Laboratory Results - last 24 hr 08/15/20 08/15/20 Range/Units 06:07 06:07 WBC 7.61 (3.98-10.04) K/mm3 RBC 4.72 (3.98-5.22) M/mm3 Hgb 13.6 (11.2-15.7) gm/dl Hct 42.2 (34.1-44.9) % MCV 89.4 (79.4-94.8) fl MCH 28.8 (25.6-32.2) pg MCHC 32.2 (32.2-35.5) g/dl RDW Std Deviation 50.5 H (36.4-46.3) fL Plt Count 388 H (182-369) K/mm3 MPV 8.9 L (9.4-12.3) fl Neut % (Auto) 72.5 H (34.0-71.1) % Lymph % (Auto) 13.5 L (19.3-51.7) % Randolph % (Auto) 11.6 (4.7-12.5) % Eos % (Auto) 1.4 (0.7-5.8) Baso % (Auto) 0.5 (0.1-1.2) % Neut # (Auto) 5.51 (1.56-6.13) K/mm3 Lymph # (Auto) 1.03 L (1.18-3.74) K/mm3 Randolph # (Auto) 0.88 H (0.24-0.36) K/mm3 Eos # (Auto) 0.11 (0.04-0.36) K/mm3 Baso # (Auto) 0.04 (0.01-0.08) K/mm3 Sodium 144 (136-145) mEq/L Potassium 3.0 L (3.5-5.1) mEq/L Chloride 104 (98-107) mEq/L Carbon Dioxide 27 (21-32) mEq/L Anion Gap 16.0 H (5-15) BUN 10 (7-18) mg/dL Creatinine 0.6 (0.55-1.02) mg/dL Est Cr Clr Drug Dosing 53.67 mL/min Estimated GFR (MDRD) > 60 (>60) mL/min BUN/Creatinine Ratio 16.7 (14-18) Glucose 140 H (70-99) mg/dL Calcium 8.9 (8.5-10.1) mg/dL Magnesium 2.0 (1.8-2.4) mg/dL Total Bilirubin 0.8 (0.2-1.0) mg/dL AST 21 (15-37) U/L ALT 36 (14-59) U/L Alkaline Phosphatase 180 H (46-116) U/L Total Protein 6.7 (6.4-8.2) g/dl Albumin 3.0 L (3.4-5.0) g/dl Globulin 3.7 gm/dL Albumin/Globulin Ratio 0.8 L (1-2) Med Orders - Current: Current Medications Acetaminophen (Acetaminophen 325 Mg Tab) 650 mg PO Q4H PRN PRN Reason: Pain (Mild 1-3)/fever Last Admin: 08/15/20 13:39 Dose: 650 mg Documented by: Hydrocodone Bitart/Acetaminophen (Acetaminophen/Hydrocodone 325-5 Mg Tab) 1 tab PO Q4H PRN PRN Reason: Compression fracture T12 Last Admin: 08/15/20 12:29 Dose: 1 tab Documented by: Amlodipine Besylate (Amlodipine 5 Mg Tab Pt Own) 5 mg PO BID [facility] Last Admin: 08/15/20 08:52 Dose: 5 mg Documented by: Aspirin (Aspirin 81 Mg Tab.Ec) 81 mg PO DAILY [facility] Last Admin: 08/15/20 08:50 Dose: 81 mg Documented by: Cholecalciferol (Cholecalciferol (Vitamin D3) 25 Mcg Tab) 25 mcg PO DAILY [facility] Last Admin: 08/15/20 08:51 Dose: 25 mcg Documented by: Enoxaparin Sodium (Enoxaparin 40 Mg/0.4 Ml Syringe) 40 mg SUBCUT DAILY [facility] Last Admin: 08/15/20 08:50 Dose: 40 mg Documented by: Fentanyl (Fentanyl 12 Mcg/Hr Transdermal Patch) 24 mcg TOP Q72H [facility] Last Admin: 08/13/20 23:08 Dose: 24 mcg Documented by: Ketorolac Tromethamine (Ketorolac 15 Mg/Ml Sdv) 15 mg IVPUSH Q6H PRN PRN Reason: Pain (moderate 4-6) Last Admin: 08/14/20 09:15 Dose: 15 mg Documented by: Levothyroxine Sodium (Levothyroxine 100 Mcg Tab) 100 mcg PO ACBRK [facility] Last Admin: 08/15/20 04:59 Dose: 100 mcg Documented by: Lidocaine (Lidocaine 4% 1 Each Patch) 1 each TOP DAILY [facility] Last Admin: 08/15/20 08:51 Dose: 1 each Documented by: Miscellaneous Information (Remove Patch Fentanyl 12mcg Patch X 2) 2 ea TRDERM Q72H [facility] Last Admin: 08/13/20 23:08 Dose: 2 ea Documented by: Miscellaneous Information (Remove Lidocaine Patch) 1 ea TRDERM Q24H [facility] Last Admin: 08/14/20 20:00 Dose: 1 ea Documented by: Rosuvastatin 5mg Tab (Ptom) 0.5 each PO BEDTIME [facility] Last Admin: 08/14/20 20:00 Dose: 0.5 each Documented by: Ondansetron HCl (Ondansetron 4 Mg/2 Ml Sdv) 4 mg IV Q6H PRN PRN Reason: Nausea/Vomiting Escitalopram Oxalate (10 Mg Tablet) 10 each PO DAILY [facility] Last Admin: 08/15/20 08:53 Dose: 10 each Documented by: Polyethylene Glycol (Polyethylene Glycol 3350 Powder 17 Gm Packet) 17 gm PO DAILY [facility] Last Admin: 08/15/20 08:51 Dose: 17 gm Documented by: Potassium Chloride (Potassium Chloride 20 Meq Tab.Er) 40 meq PO BID [facility] Last Admin: 08/15/20 08:50 Dose: 40 meq Documented by: Senna/Docusate Sodium (Docusate Sodium/Sennosides 50-8.6 Mg Tab) 2 tab PO BID [facility] Last Admin: 08/15/20 08:50 Dose: 2 tab Documented by: Sodium Chloride (Sodium Chloride 0.9% 10 Ml Syringe) 10 ml FLUSH ASDIRECTED PRN PRN Reason: Keep Vein Open Last Admin: 08/13/20 09:11 Dose: 10 ml Documented by: Discontinued Medications Hydrocodone Bitart/Acetaminophen (Acetaminophen/Hydrocodone 325-5 Mg Tab) 1 tab PO ONETIME ONE Stop: 08/13/20 11:33 Last Admin: 08/13/20 11:50 Dose: 1 tab Documented by: Amlodipine Besylate (Amlodipine 5 Mg Tab Pt Own) 10 mg PO BID [facility] Last Admin: 08/14/20 08:30 Dose: 10 mg Documented by: Bisacodyl (Bisacodyl 10 Mg Supp) 10 mg RECTAL ONETIME ONE Stop: 08/14/20 09:01 Last Admin: 08/14/20 08:42 Dose: Not Given Documented by: Diatrizoate Meglum/Diatrizoate Sod (Diatrizoate Meglumine/Diatrizoate Sodium 37% 120 Ml Bottle) 120 ml PO ONETIME ONE Stop: 08/13/20 10:05 Last Admin: 08/13/20 11:23 Dose: 30 ml Documented by: Docusate Sodium (Docusate Sodium 100 Mg Cap) 100 mg PO DAILY [facility] Gadobenate Dimeglumine (Gadobenate Dimeglumine 529 Mg/Ml 15 Ml Sdv) 12 ml IVPUSH ONETIME ONE Stop: 08/13/20 16:46 Last Admin: 08/13/20 16:43 Dose: 12 ml Documented by: Potassium Chloride 10 meq/ (Premix) 100 mls @ 100 mls/hr IV ONETIME ONE Stop: 08/13/20 11:09 Last Admin: 08/13/20 10:54 Dose: 100 mls/hr Documented by: Potassium Chloride 10 meq/ (Premix) 100 mls @ 100 mls/hr IV ONETIME ONE Stop: 08/13/20 13:45 Last Admin: 08/13/20 13:45 Dose: 100 mls/hr Documented by: Iopamidol (Iopamidol 612 Mg/Ml 100 Ml Bottle) 100 ml IVPUSH ONETIME ONE Stop: 08/13/20 10:05 Last Admin: 08/13/20 11:23 Dose: 100 ml Documented by: Ketorolac Tromethamine (Ketorolac 30 Mg/Ml Sdv) 15 mg IVPUSH ONETIME ONE Stop: 08/13/20 08:48 Last Admin: 08/13/20 09:12 Dose: 15 mg Documented by: Ketorolac Tromethamine (Ketorolac 30 Mg/Ml Sdv) 15 mg IV Q6H PRN PRN Reason: Pain (moderate 4-6) Lorazepam (Lorazepam 2 Mg/Ml Sdv) 0.5 mg IVPUSH ONETIME ONE Stop: 08/13/20 15:46 Last Admin: 08/13/20 15:46 Dose: 0.5 mg Documented by: Morphine Sulfate (Morphine 2 Mg/Ml Syringe) 2 mg IVPUSH Q2H PRN PRN Reason: Pain (severe 7-10) Stop: 08/14/20 15:00 Non-Formulary Medication (Amlodipine [Norvasc]) 10 mg PO BID [facility] Non-Formulary Medication (Aspirin [Halfprin]) 81 mg PO DAILY [facility] Non-Formulary Medication (Levothyroxine [Synthroid]) 88 mcg PO ACBRK [facility] Non-Formulary Medication (Rosuvastatin [Crestor]) 2.5 mg PO BEDTIME [facility] Non-Formulary Medication (Escitalopram Oxalate) 10 mg PO DAILY [facility] Non-Formulary Medication (Acetaminophen) 500 mg PO Q6H PRN PRN Reason: Pain Non-Formulary Medication (Potassium Chloride) 20 meq PO BID [facility] Polyethylene Glycol (Polyethylene Glycol 3350 Powder 17 Gm Packet) 17 gm PO DAILY [facility] Potassium Bicarbonate (Potassium Bicarbonate/Cit Ac 20 Meq Effervescent Tab) 20 meq PO ONETIME ONE Stop: 08/13/20 21:01 Last Admin: 08/13/20 20:12 Dose: 20 meq Documented by: Potassium Bicarbonate (Potassium Bicarbonate/Cit Ac 20 Meq Effervescent Tab) 40 meq PO ONETIME ONE Stop: 08/14/20 09:01 Last Admin: 08/14/20 08:30 Dose: 40 meq Documented by: Potassium Chloride (Potassium Chloride 20 Meq Tab.Er) 40 meq PO ONETIME ONE Stop: 08/13/20 10:11 Last Admin: 08/13/20 10:54 Dose: 40 meq Documented by: Senna (Sennosides 8.6 Mg Tab) 8.6 mg PO BID [facility] Last Admin: 08/13/20 20:13 Dose: 8.6 mg Documented by: Sodium Chloride (Sodium Chloride 0.9% 10 Ml Syringe) 10 ml FLUSH ONETIME PRN PRN Reason: IV FLUSH Last Admin: 08/13/20 11:23 Dose: 10 ml Documented by: Sodium Chloride (Sodium Chloride 0.9% 10 Ml Syringe) 20 ml FLUSH ASDIRECTED [facility] Stop: 08/13/20 18:00 Last Admin: 08/13/20 16:43 Dose: 20 ml Documented by: - Exam Quality Assessment: Reports: DVT Prophylaxis. Denies: Supplemental Oxygen, Urine Catheter General: Reports: Alert, Oriented, Cooperative, No Acute Distress HEENT: Reports: Pupils Equal, Pupils Reactive, Mucous Membr. 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 Denies: Muscle Spasm, Paraspinal Tenderness, Vertebral Tenderness Extremities: Normal Inspection, Normal Range of Motion, Non-Tender, No Pedal Edema Skin: Reports: Warm, Dry, Intact Wound/Incisions: Reports: Dressing Dry and Intact, No Drainage Neurological: Reports: No New Focal Deficit Psy/Mental Status: Reports: Alert, Normal Affect, Normal Mood
[2020-08-15 15:31] VITALS: BP 133/66; PULSE 100
== END 2020-08-15 14:33 | disposition home health service (06) ==
LOC: JD.ED 08:10 → JD.MS 14:31
PROVIDERS: ADMIT Internal Medicine; ATTEND Internal Medicine
DX: S32.000A Wedge compression fracture of unspecified lumbar vertebra, initial encounter for closed fracture (principal); S22.000A Wedge compression fracture of unspecified thoracic vertebra, initial encounter for closed fracture; M40.209 Unspecified kyphosis, site unspecified; E78.5 Hyperlipidemia, unspecified; I10 Essential (primary) hypertension; E03.9 Hypothyroidism, unspecified; E78.00 Pure hypercholesterolemia, unspecified; N39.0 Urinary tract infection, site not specified; E87.6 Hypokalemia; K59.09 Other constipation; Z20.822 Contact with and (suspected) exposure to COVID-19; Z88.5 Allergy status to narcotic agent; Z79.890 Hormone replacement therapy; Z79.899 Other long term (current) drug therapy; Z79.82 Long term (current) use of aspirin; Z98.890 Other specified postprocedural states; Z85.820 Personal history of malignant melanoma of skin; Z86.711 Personal history of pulmonary embolism
CPT/HCPCS: 36415; 71260; 71260-26; 72158; 72158-26; 74177; 74177-26; 80053; 83735; 84100; 85025; 85652; 86140; 93005; 96365; 96366; 96372; 96375; 96376; 97110-GP; 97162-GP; 97530-GP; 99285; 99285-25; A9270-GY; A9577; G0378; J1650; J1885; J2060; J3480; Q9963; Q9967; U0002

== ENCOUNTER 2021-04-27 01:01 | Emergency (ER) | payer MEDICARE, OTHER ==
[2021-04-27 01:17] VITALS: BP 158/81; PULSE 76
== END 2021-04-27 03:10 | disposition home or self-care (01) ==
LOC: JD.ED 01:01
DX: S09.90XA Unspecified injury of head, initial encounter (principal); S19.9XXA Unspecified injury of neck, initial encounter; S29.9XXA Unspecified injury of thorax, initial encounter; E78.00 Pure hypercholesterolemia, unspecified; I10 Essential (primary) hypertension; E03.9 Hypothyroidism, unspecified; M19.90 Unspecified osteoarthritis, unspecified site; Z88.5 Allergy status to narcotic agent; Z79.899 Other long term (current) drug therapy; Z79.82 Long term (current) use of aspirin; W18.09XA Striking against other object with subsequent fall, initial encounter
CPT/HCPCS: 70450; 70450-26; 72125; 72125-26; 72128; 72128-26; 93005; 93010; 99284; 99284-25

== ENCOUNTER 2022-06-21 10:06 | Emergency (ER) | payer MEDICARE, OTHER ==
[2022-06-21 10:18] VITALS: BP 160/88; PULSE 88
[2022-06-21 11:13] LABS: BASOPHILS ABSOLUTE AUTO 0.02 K/mm3 (0.01-0.08); BASOPHILS PERCENT AUTO 0.3 % (0.1-1.2); EOSINOPHILS ABSOLUTE AUTO 0.08 K/mm3 (0.04-0.36); EOSINOPHILS PERCENT AUTO 1.4 (0.7-5.8); HEMATOCRIT 43.9 % (34.1-44.9); HEMOGLOBIN 14.4 gm/dl (11.2-15.7); IMMATURE GRAN ABSOLUTE AUTO 0.01 K/mm3 (0.00-0.10); IMMATURE GRAN PERCENT AUTO 0.2 % (<=1.0); LYMPHOCYTES PERCENT AUTO 17.4 % (19.3-51.7); MEAN CORPUSCULAR HEMOGLOBIN 29.1 pg (25.6-32.2); MEAN CORPUSCULAR HGB CONC 32.8 g/dl (32.2-35.5); MEAN CORPUSCULAR VOLUME 88.9 fl (79.4-94.8); MEAN PLATELET VOLUME 9.6 fl (9.4-12.3); MONOCYTES ABSOLUTE AUTO 0.56 K/mm3 (0.24-0.36); MONOCYTES PERCENT AUTO 9.7 % (4.7-12.5); NEUTROPHILS ABSOLUTE AUTO 4.09 K/mm3 (1.56-6.13); PLATELET COUNT,PLT 246 K/mm3 (182-369); RED BLOOD CELL COUNT 4.94 M/mm3 (3.98-5.22); WHITE BLOOD CELL COUNT,WBC 5.76 K/mm3 (3.98-10.04)
[2022-06-21 11:14] LABS: APPEARANCE,URINE CLEAR (Clear); BILIRUBIN,URINE NEGATIVE (Negative); COLOR,URINE YELLOW (Yellow); GLUCOSE,URINE NEGATIVE (Negative); KETONES,URINE NEGATIVE (Negative); LEUKOCYTE ESTERASE,URINE TRACE (Negative); NITRITE,URINE NEGATIVE (Negative); OCCULT BLOOD,URINE NEGATIVE (Negative); PROTEIN,URINE NEGATIVE (Negative)
[2022-06-21 11:25] LABS: INR 1.04; PROTHROMBIN TIME 11.1 SECONDS (9.7-12.0)
[2022-06-21 11:26] LABS: D-DIMER QUANTITATIVE 0.44 mg/L (0.19-0.50)
[2022-06-21 11:32] LABS: ALBUMIN 3.5 g/dl (3.4-5.0); ANION GAP 10.4 (5-15); BILIRUBIN TOTAL 0.5 mg/dL (0.2-1.0); BUN/CREATININE RATIO 21.4 (14-18); CALCIUM 8.1 mg/dL (8.5-10.1); CREATININE 0.7 mg/dL (0.55-1.02); EST CRCL DRUG DOSING (CG) 46.47 mL/min; MAGNESIUM 2.2 mg/dL (1.8-2.4); POTASSIUM,K 3.4 mEq/L (3.5-5.1); PROTEIN TOTAL,TP 7.1 g/dl (6.4-8.2)
[2022-06-21 11:40] LABS: BACTERIA,URINE RARE /hpf (FEW); HYALINE CASTS,URINE 0-5 /lpf (0-5); MUCUS,URINE NOT SEEN /hpf (FEW); RBC,URINE 0-5 /hpf (0-5); SQUAMOUS EPITHELIAL CELLS,UR 0-5 /hpf (0-5); WBC,URINE 0-5 /hpf (0-5)
[2022-06-21] MEDS ORDERED: Alum Hydrox/Mag Hydrox/Simeth 30 ML, Lidocaine 2% 15 ML PO ONE ×2 (11:50)
[2022-06-21] MEDS ORDERED: Sucralfate Suspension 1 GM/10 ML Cup PO ONE (12:46)
== END 2022-06-21 14:55 | disposition home or self-care (01) ==
LOC: JD.ED 10:06
DX: K21.9 Gastro-esophageal reflux disease without esophagitis (principal); E78.00 Pure hypercholesterolemia, unspecified; I10 Essential (primary) hypertension; M19.90 Unspecified osteoarthritis, unspecified site; E03.9 Hypothyroidism, unspecified; Z86.16 Personal history of COVID-19; Z88.5 Allergy status to narcotic agent; Z79.82 Long term (current) use of aspirin; Z79.899 Other long term (current) drug therapy
CPT/HCPCS: 36415; 71045; 80053; 81001; 83735; 84484; 85025; 85379; 85610; 87086; 93005; 99285; A9270; 93010; 99284

== ENCOUNTER 2022-11-25 13:03 | Emergency (ER) | payer MEDICARE, OTHER ==
[2022-11-25] MEDS ORDERED: Sodium Chloride 0.9% 10 ML Syringe FLUSH PRN (14:17)
[2022-11-25] MEDS ORDERED: Sodium Chloride 0.9% 1,000 ML IV SCH (14:30)
[2022-11-25 15:03] LABS: BASOPHILS PERCENT AUTO 0.5 % (0.0-1.0); EOSINOPHILS ABSOLUTE AUTO 0.1 K/mm3 (0.0-0.4); HEMATOCRIT 43.5 % (37.0-47.0); HEMOGLOBIN 14.6 gm/dl (12.0-16.0); IMMATURE GRAN ABSOLUTE AUTO 0.01 K/mm3 (0.00-0.05); IMMATURE GRAN PERCENT AUTO 0.2 % (0.0-0.4); LYMPHOCYTES PERCENT AUTO 17.3 % (24.0-44.0); MEAN CORPUSCULAR HEMOGLOBIN 30.5 pg (28.0-32.0); MEAN CORPUSCULAR HGB CONC 33.6 g/dl (32.0-36.0); MEAN PLATELET VOLUME 9.5 fl (9.4-12.3); MONOCYTES ABSOLUTE AUTO 0.5 K/mm3 (0.0-0.8); MONOCYTES PERCENT AUTO 9.3 % (0.0-8.0); NEUTROPHILS ABSOLUTE AUTO 4.2 K/mm3 (1.8-7.7); NEUTROPHILS PERCENT AUTO 71.7 % (41.0-71.0); PLATELET COUNT,PLT 207 K/mm3 (150-400); RED BLOOD CELL COUNT 4.78 M/mm3 (4.10-5.30); WHITE BLOOD CELL COUNT,WBC 5.79 K/mm3 (3.9-11.3)
[2022-11-25 15:26] LABS: CORONAVIRUS COVID-19 NAA NEGATIVE (NEGATIVE); INFLUENZA A NAA NEGATIVE (NEGATIVE); RESPIRATORY SYNCYTIAL VIR NAA NEGATIVE (NEGATIVE)
[2022-11-25 15:39] LABS: A/G RATIO 1.1 (1-2); ALANINE AMINOTRANSFERASE,ALT 18 U/L (14-59); ALBUMIN 3.8 g/dl (3.4-5.0); ALKALINE PHOSPHATASE 54 U/L (46-116); ASPARTATE AMNIOTRANSFERASE,AST 17 U/L (15-37); BILIRUBIN TOTAL 0.6 mg/dL (0.2-1.0); BLOOD UREA NITROGEN,BUN 18 mg/dL (7-18); C-REACTIVE PROTEIN <0.2 mg/dL (<1.0); CALCIUM 8.8 mg/dL (8.5-10.1); CARBON DIOXIDE,CO2 29 mEq/L (21-32); CHLORIDE,CL 101 mEq/L (98-107); CREATININE 0.9 mg/dL (0.55-1.02); EST CRCL DRUG DOSING (CG) 32.83 mL/min; ESTIMATED GFR 63 mL/min (>60); GLUCOSE RANDOM 140 mg/dL (70-99); PROTEIN TOTAL,TP 7.4 g/dl (6.4-8.2); SODIUM,NA 140 mEq/L (136-145); TROPONIN I HIGH SENSITIVITY 6 pg/mL (<=51)
[2022-11-25 16:08] LABS: APPEARANCE,URINE SLT CLOUDY (Clear); BILIRUBIN,URINE NEGATIVE (Negative); COLOR,URINE DARK YELLOW (Yellow); GLUCOSE,URINE NEGATIVE (Negative); KETONES,URINE 1+ (Negative); LEUKOCYTE ESTERASE,URINE TRACE (Negative); NITRITE,URINE NEGATIVE (Negative); OCCULT BLOOD,URINE TRACE-INTACT (Negative); PROTEIN,URINE TRACE (Negative)
[2022-11-25 16:28] VITALS: PULSE 105
[2022-11-25 16:35] LABS: BACTERIA,URINE FEW /hpf (FEW); HYALINE CASTS,URINE 40-50 /lpf (0-5); MUCUS,URINE MANY /hpf (FEW); RBC,URINE 0-5 /hpf (0-5); SQUAMOUS EPITHELIAL CELLS,UR 0-5 /hpf (0-5); WBC,URINE 0-5 /hpf (0-5)
[2022-11-25] MEDS ORDERED: Cephalexin 500 MG Cap PO ONE (16:38)
[2022-11-25 17:23] VITALS: BP 159/97
== END 2022-11-25 17:15 | disposition home or self-care (01) ==
LOC: JD.ED 13:03
DX: N30.00 Acute cystitis without hematuria (principal); E78.00 Pure hypercholesterolemia, unspecified; E03.9 Hypothyroidism, unspecified; I10 Essential (primary) hypertension; Z86.16 Personal history of COVID-19; Z20.822 Contact with and (suspected) exposure to COVID-19; Z88.5 Allergy status to narcotic agent; Z79.82 Long term (current) use of aspirin
CPT/HCPCS: 0241U; 36415; 71045; 80053; 81001; 83605; 84484; 85025; 86140; 93005; 99285; A9270

== ENCOUNTER 2023-01-01 18:07 | Observation (INO) | payer MEDICARE, OTHER ==
[2023-01-01] MEDS ORDERED: Sodium Chloride 0.9% 10 ML Syringe FLUSH PRN (18:22)
[2023-01-01] MEDS ORDERED: Lactated Ringers 1,000 ML IV SCH (18:30)
[2023-01-01 18:50] LABS: BASOPHILS PERCENT AUTO 0.6 % (0.0-1.0); EOSINOPHILS ABSOLUTE AUTO 0.2 K/mm3 (0.0-0.4); EOSINOPHILS PERCENT AUTO 4.1 % (0.0-6.0); HEMATOCRIT 42.2 % (37.0-47.0); HEMOGLOBIN 14.1 gm/dl (12.0-16.0); IMMATURE GRAN ABSOLUTE AUTO 0.01 K/mm3 (0.00-0.05); IMMATURE GRAN PERCENT AUTO 0.2 % (0.0-0.4); LYMPHOCYTES ABSOLUTE AUTO 1.6 K/mm3 (1.0-4.8); LYMPHOCYTES PERCENT AUTO 30.2 % (24.0-44.0); MEAN CORPUSCULAR HEMOGLOBIN 30.5 pg (28.0-32.0); MEAN CORPUSCULAR HGB CONC 33.4 g/dl (32.0-36.0); MEAN CORPUSCULAR VOLUME 91.1 fl (83.0-99.0); MEAN PLATELET VOLUME 9.3 fl (9.4-12.3); MONOCYTES ABSOLUTE AUTO 0.5 K/mm3 (0.0-0.8); MONOCYTES PERCENT AUTO 10.1 % (0.0-8.0); NEUTROPHILS PERCENT AUTO 54.8 % (41.0-71.0); PLATELET COUNT,PLT 199 K/mm3 (150-400); RED BLOOD CELL COUNT 4.63 M/mm3 (4.10-5.30); WHITE BLOOD CELL COUNT,WBC 5.37 K/mm3 (3.9-11.3)
[2023-01-01 19:16] LABS: A/G RATIO 1.1 (1-2); ALBUMIN 3.4 g/dl (3.4-5.0); ALKALINE PHOSPHATASE 50 U/L (46-116); ANION GAP 13.5 (5-15); ASPARTATE AMNIOTRANSFERASE,AST 17 U/L (15-37); BILIRUBIN TOTAL 0.6 mg/dL (0.2-1.0); BLOOD UREA NITROGEN,BUN 14 mg/dL (7-18); C-REACTIVE PROTEIN <0.2 mg/dL (<1.0); CALCIUM 8.2 mg/dL (8.5-10.1); CARBON DIOXIDE,CO2 26 mEq/L (21-32); CHLORIDE,CL 106 mEq/L (98-107); CREATININE 0.7 mg/dL (0.55-1.02); ESTIMATED GFR 85 mL/min (>60); GLUCOSE RANDOM 94 mg/dL (70-99); POTASSIUM,K 3.5 mEq/L (3.5-5.1); PROTEIN TOTAL,TP 6.5 g/dl (6.4-8.2); SODIUM,NA 142 mEq/L (136-145)
[2023-01-01 19:34] LABS: ALANINE AMINOTRANSFERASE,ALT 12 U/L (14-59)
[2023-01-01 20:03] LABS: CORONAVIRUS COVID-19 NAA NEGATIVE (NEGATIVE); INFLUENZA A NAA NEGATIVE (NEGATIVE)
[2023-01-01 20:10] LABS: APPEARANCE,URINE CLEAR (Clear); BILIRUBIN,URINE NEGATIVE (Negative); COLOR,URINE DARK YELLOW (Yellow); GLUCOSE,URINE NEGATIVE (Negative); KETONES,URINE 2+ (Negative); LEUKOCYTE ESTERASE,URINE NEGATIVE (Negative); NITRITE,URINE NEGATIVE (Negative); OCCULT BLOOD,URINE NEGATIVE (Negative); PROTEIN,URINE TRACE (Negative)
[2023-01-01 20:19] LABS: BACTERIA,URINE FEW /hpf (FEW); MUCUS,URINE MANY /hpf (FEW); RBC,URINE 0-5 /hpf (0-5); SQUAMOUS EPITHELIAL CELLS,UR 0-5 /hpf (0-5); WBC,URINE 0-5 /hpf (0-5)
[2023-01-02] MEDS: Heparin Sodium 5,000 Units/ML Vial SUBCUT SCH ×3 (00:54→16:18)
[2023-01-02] MEDS: Sodium Chloride 0.9% 1,000 ML IV SCH ×2 (00:54→14:19)
[2023-01-02 05:47] LABS: BASOPHILS PERCENT AUTO 0.7 % (0.0-1.0); EOSINOPHILS ABSOLUTE AUTO 0.1 K/mm3 (0.0-0.4); EOSINOPHILS PERCENT AUTO 1.5 % (0.0-6.0); HEMATOCRIT 42.3 % (37.0-47.0); HEMOGLOBIN 14.2 gm/dl (12.0-16.0); IMMATURE GRAN ABSOLUTE AUTO 0.03 K/mm3 (0.00-0.05); IMMATURE GRAN PERCENT AUTO 0.5 % (0.0-0.4); LYMPHOCYTES ABSOLUTE AUTO 1.6 K/mm3 (1.0-4.8); LYMPHOCYTES PERCENT AUTO 27.4 % (24.0-44.0); MEAN CORPUSCULAR HEMOGLOBIN 30.5 pg (28.0-32.0); MEAN CORPUSCULAR HGB CONC 33.6 g/dl (32.0-36.0); MEAN PLATELET VOLUME 9.6 fl (9.4-12.3); MONOCYTES ABSOLUTE AUTO 0.5 K/mm3 (0.0-0.8); MONOCYTES PERCENT AUTO 8.9 % (0.0-8.0); NEUTROPHILS ABSOLUTE AUTO 3.6 K/mm3 (1.8-7.7); PLATELET COUNT,PLT 171 K/mm3 (150-400); RED BLOOD CELL COUNT 4.65 M/mm3 (4.10-5.30); WHITE BLOOD CELL COUNT,WBC 5.85 K/mm3 (3.9-11.3)
[2023-01-02 06:09] LABS: ALBUMIN 3.2 g/dl (3.4-5.0); ANION GAP 12.5 (5-15); BILIRUBIN TOTAL 0.8 mg/dL (0.2-1.0); BUN/CREATININE RATIO 16.7 (14-18); CALCIUM 8.1 mg/dL (8.5-10.1); CREATININE 0.6 mg/dL (0.55-1.02); EST CRCL DRUG DOSING (CG) 52.28 mL/min; POTASSIUM,K 3.5 mEq/L (3.5-5.1); PROTEIN TOTAL,TP 6.3 g/dl (6.4-8.2)
[2023-01-02] MEDS: DONEPEZIL 5 MG PO SCH (08:14)
[2023-01-02] MEDS: cloNIDine 0.1 MG Tab PO PRN (16:18)
[2023-01-02] MEDS: MELOXICAM 15 MG PO SCH (20:42)
[2023-01-02] MEDS: Famotidine 10 MG Tab PO SCH (20:43)
[2023-01-02] MEDS ORDERED: Meloxicam 7.5 MG Tab PO SCH (21:00)
[2023-01-02] MEDS ORDERED: ESCITALOPRAM 20 MG PO ONE (21:00)
[2023-01-03] MEDS: Heparin Sodium 5,000 Units/ML Vial SUBCUT SCH ×3 (01:16→15:13)
[2023-01-03] MEDS: Sodium Chloride 0.9% 1,000 ML IV SCH (03:38)
[2023-01-03 06:29] LABS: BASOPHILS PERCENT AUTO 0.6 % (0.0-1.0); EOSINOPHILS ABSOLUTE AUTO 0.2 K/mm3 (0.0-0.4); EOSINOPHILS PERCENT AUTO 3.9 % (0.0-6.0); HEMATOCRIT 37.7 % (37.0-47.0); IMMATURE GRAN ABSOLUTE AUTO 0.01 K/mm3 (0.00-0.05); IMMATURE GRAN PERCENT AUTO 0.2 % (0.0-0.4); LYMPHOCYTES ABSOLUTE AUTO 1.2 K/mm3 (1.0-4.8); LYMPHOCYTES PERCENT AUTO 24.4 % (24.0-44.0); MEAN CORPUSCULAR HEMOGLOBIN 30.8 pg (28.0-32.0); MEAN CORPUSCULAR HGB CONC 33.4 g/dl (32.0-36.0); MEAN CORPUSCULAR VOLUME 92.2 fl (83.0-99.0); MEAN PLATELET VOLUME 9.5 fl (9.4-12.3); MONOCYTES ABSOLUTE AUTO 0.6 K/mm3 (0.0-0.8); MONOCYTES PERCENT AUTO 11.5 % (0.0-8.0); NEUTROPHILS ABSOLUTE AUTO 2.9 K/mm3 (1.8-7.7); NEUTROPHILS PERCENT AUTO 59.4 % (41.0-71.0); PLATELET COUNT,PLT 161 K/mm3 (150-400); RED BLOOD CELL COUNT 4.09 M/mm3 (4.10-5.30); WHITE BLOOD CELL COUNT,WBC 4.87 K/mm3 (3.9-11.3)
[2023-01-03 06:32] LABS: HEMOGLOBIN 12.6 gm/dl (12.0-16.0)
[2023-01-03 06:57] LABS: ALBUMIN 2.8 g/dl (3.4-5.0); ANION GAP 10.3 (5-15); BILIRUBIN TOTAL 0.6 mg/dL (0.2-1.0); BUN/CREATININE RATIO 24.3 (14-18); CALCIUM 7.5 mg/dL (8.5-10.1); CREATININE 0.7 mg/dL (0.55-1.02); EST CRCL DRUG DOSING (CG) 44.51 mL/min; POTASSIUM,K 3.3 mEq/L (3.5-5.1); PROTEIN TOTAL,TP 5.5 g/dl (6.4-8.2)
[2023-01-03] MEDS: cloNIDine 0.1 MG Tab PO PRN (08:34)
[2023-01-03] MEDS: Famotidine 10 MG Tab PO SCH ×2 (08:34→21:55)
[2023-01-03] MEDS: Losartan 50 MG Tab PO SCH (08:36)
[2023-01-03] MEDS: MELOXICAM 15 MG PO SCH ×2 (08:37→21:56)
[2023-01-03] MEDS: LEVOTHYROXINE 88 MCG PO SCH (08:37)
[2023-01-03] MEDS: DONEPEZIL 5 MG PO SCH (08:37)
[2023-01-03] MEDS ORDERED: QUEtiapine 25 MG Tab PO SCH (09:00)
[2023-01-03] MEDS ORDERED: FENTANYL 50 MCG/HR TRDERM SCH (09:00)
[2023-01-03] MEDS ORDERED: ESCITALOPRAM 20 MG PO SCH (21:00)
[2023-01-04] MEDS: Heparin Sodium 5,000 Units/ML Vial SUBCUT SCH ×2 (01:08→08:51)
[2023-01-04] MEDS: cloNIDine 0.1 MG Tab PO PRN (04:55)
[2023-01-04 06:35] LABS: BASOPHILS PERCENT AUTO 0.7 % (0.0-1.0); EOSINOPHILS ABSOLUTE AUTO 0.2 K/mm3 (0.0-0.4); EOSINOPHILS PERCENT AUTO 3.9 % (0.0-6.0); HEMATOCRIT 38.7 % (37.0-47.0); HEMOGLOBIN 12.8 gm/dl (12.0-16.0); IMMATURE GRAN ABSOLUTE AUTO 0.02 K/mm3 (0.00-0.05); IMMATURE GRAN PERCENT AUTO 0.4 % (0.0-0.4); LYMPHOCYTES ABSOLUTE AUTO 1.4 K/mm3 (1.0-4.8); LYMPHOCYTES PERCENT AUTO 25.4 % (24.0-44.0); MEAN CORPUSCULAR HEMOGLOBIN 30.2 pg (28.0-32.0); MEAN CORPUSCULAR HGB CONC 33.1 g/dl (32.0-36.0); MEAN CORPUSCULAR VOLUME 91.3 fl (83.0-99.0); MEAN PLATELET VOLUME 9.1 fl (9.4-12.3); MONOCYTES ABSOLUTE AUTO 0.6 K/mm3 (0.0-0.8); MONOCYTES PERCENT AUTO 10.5 % (0.0-8.0); NEUTROPHILS ABSOLUTE AUTO 3.3 K/mm3 (1.8-7.7); NEUTROPHILS PERCENT AUTO 59.1 % (41.0-71.0); PLATELET COUNT,PLT 171 K/mm3 (150-400); RED BLOOD CELL COUNT 4.24 M/mm3 (4.10-5.30); WHITE BLOOD CELL COUNT,WBC 5.64 K/mm3 (3.9-11.3)
[2023-01-04 06:46] LABS: ANION GAP 12.2 (5-15); CALCIUM 7.8 mg/dL (8.5-10.1); CREATININE 0.6 mg/dL (0.55-1.02); EST CRCL DRUG DOSING (CG) 51.64 mL/min; POTASSIUM,K 3.2 mEq/L (3.5-5.1)
[2023-01-04] MEDS: Losartan 50 MG Tab PO SCH (08:51)
[2023-01-04] MEDS: DONEPEZIL 5 MG PO SCH (08:51)
[2023-01-04] MEDS: MELOXICAM 15 MG PO SCH (08:52)
[2023-01-04] MEDS: Famotidine 10 MG Tab PO SCH (08:52)
[2023-01-04] MEDS: LEVOTHYROXINE 88 MCG PO SCH (08:53)
[2023-01-04 13:33] VITALS: BP 127/86; PULSE 82
== END 2023-01-04 13:21 ==
LOC: JD.ED 18:07 → JD.MS 21:06
PROVIDERS: ADMIT Internal Medicine; ATTEND Internal Medicine
DX: R62.7 Adult failure to thrive (principal); F03.90 Unspecified dementia, unspecified severity, without behavioral disturbance, psychotic disturbance, mood disturbance, and anxiety; R63.0 Anorexia; I10 Essential (primary) hypertension; E78.00 Pure hypercholesterolemia, unspecified; E03.9 Hypothyroidism, unspecified; F32.A Depression, unspecified; Z20.822 Contact with and (suspected) exposure to COVID-19; Z79.890 Hormone replacement therapy; Z79.899 Other long term (current) drug therapy; Z88.5 Allergy status to narcotic agent
CPT/HCPCS: 0240U; 36415; 71045; 80048; 80053; 81001; 85025; 86140; 87641; 92610; 96360; 96361; 97161; 99285; A9270; C1758; J1644; J3490; J7030; J7120; U0002

== ENCOUNTER 2023-08-14 05:16 | Emergency (ER) | payer MEDICARE, OTHER ==
[2023-08-14 05:48] VITALS: BP 192/100; PULSE 78
== END 2023-08-14 05:55 | disposition home or self-care (01) ==
LOC: JD.ED 05:16
DX: S61.412A Laceration without foreign body of left hand, initial encounter (principal); I10 Essential (primary) hypertension; Z86.16 Personal history of COVID-19; Z90.710 Acquired absence of both cervix and uterus; Z79.899 Other long term (current) drug therapy; Z88.5 Allergy status to narcotic agent; W01.0XXA Fall on same level from slipping, tripping and stumbling without subsequent striking against object, initial encounter
CPT/HCPCS: 99282

== ENCOUNTER 2023-09-11 12:57 | Emergency (ER) | payer MEDICARE, OTHER ==
[2023-09-11 13:59] LABS: BASOPHILS PERCENT AUTO 0.1 % (0.0-1.0); HEMATOCRIT 38.9 % (37.0-47.0); IMMATURE GRAN ABSOLUTE AUTO 0.05 K/mm3 (0.00-0.05); IMMATURE GRAN PERCENT AUTO 0.7 % (0.0-0.4); LYMPHOCYTES ABSOLUTE AUTO 0.7 K/mm3 (1.0-4.8); LYMPHOCYTES PERCENT AUTO 10.1 % (24.0-44.0); MEAN CORPUSCULAR HEMOGLOBIN 31.4 pg (28.0-32.0); MEAN CORPUSCULAR HGB CONC 33.4 g/dl (32.0-36.0); MEAN PLATELET VOLUME 8.9 fl (9.4-12.3); MONOCYTES ABSOLUTE AUTO 0.3 K/mm3 (0.0-0.8); MONOCYTES PERCENT AUTO 4.5 % (0.0-8.0); NEUTROPHILS ABSOLUTE AUTO 5.8 K/mm3 (1.8-7.7); NEUTROPHILS PERCENT AUTO 84.6 % (41.0-71.0); PLATELET COUNT,PLT 217 K/mm3 (150-400); RED BLOOD CELL COUNT 4.14 M/mm3 (4.10-5.30); WHITE BLOOD CELL COUNT,WBC 6.83 K/mm3 (3.9-11.3)
[2023-09-11 14:11] LABS: APPEARANCE,URINE SLT CLOUDY (Clear); BILIRUBIN,URINE NEGATIVE (Negative); COLOR,URINE YELLOW (Yellow); GLUCOSE,URINE NEGATIVE (Negative); KETONES,URINE NEGATIVE (Negative); LEUKOCYTE ESTERASE,URINE NEGATIVE (Negative); NITRITE,URINE NEGATIVE (Negative); OCCULT BLOOD,URINE 2+ (Negative); PH,URINE 7.5 (5.0-8.0); PROTEIN,URINE NEGATIVE (Negative)
[2023-09-11] MEDS: Iopamidol 612 MG/ML 100 ML Bottle IVPUSH ONE (14:17)
[2023-09-11 14:19] LABS: AMORPHOUS SEDIMENT,URINE MANY /hpf (NOT SEEN); BACTERIA,URINE MODERATE /hpf (FEW); FINE GRANULAR CASTS,URINE 0-5 /lpf (0-5); MUCUS,URINE MODERATE /hpf (FEW); RBC,URINE 30-40 /hpf (0-5); SQUAMOUS EPITHELIAL CELLS,UR 0-5 /hpf (0-5); WBC,URINE 0-5 /hpf (0-5)
[2023-09-11 14:26] LABS: A/G RATIO 1.1 (1-2); ALBUMIN 3.2 g/dl (3.4-5.0); BILIRUBIN TOTAL 0.7 mg/dL (0.2-1.0); BUN/CREATININE RATIO 22.2 (14-18); CREATININE 0.9 mg/dL (0.55-1.02); EST CRCL DRUG DOSING (CG) 38.56 mL/min; MAGNESIUM 2.1 mg/dL (1.8-2.4); PROTEIN TOTAL,TP 6.2 g/dl (6.4-8.2)
[2023-09-11] MEDS: Sodium Chloride 0.9% 1,000 ML IV ONE (15:27)
[2023-09-11] MEDS: Potassium Chloride 10 MEQ in Premix Bag 1 BAG IV ONE ×2 (15:29→16:39)
[2023-09-11] MEDS: Potassium Chloride 20 MEQ Tab.ER PO ONE (15:37)
[2023-09-11 19:04] VITALS: BP 146/83; PULSE 90
== END 2023-09-11 18:35 | disposition home or self-care (01) ==
LOC: JD.ED 12:57
DX: S22.050A Wedge compression fracture of T5-T6 vertebra, initial encounter for closed fracture (principal); E87.6 Hypokalemia; E86.9 Volume depletion, unspecified; I10 Essential (primary) hypertension; E78.00 Pure hypercholesterolemia, unspecified; E03.9 Hypothyroidism, unspecified; Z86.16 Personal history of COVID-19; Z79.899 Other long term (current) drug therapy; Z88.5 Allergy status to narcotic agent; W18.30XA Fall on same level, unspecified, initial encounter; Y92.009 Unspecified place in unspecified non-institutional (private) residence as the place of occurrence of the external cause
CPT/HCPCS: 36415; 70450; 71260; 72125; 74177; 80053; 81001; 82550; 83735; 84484; 85025; 93005; 96365; 96366; 99285; A9270; J3480; J7030; Q9967; 93010; 99284